=== PATIENT | male | born 1955 | race Caucasian/White ===

== ENCOUNTER → 2018-03-20 12:22 | Outpatient (CLI) | payer BC, SELFPAY ==
--- NOTE | 2018-03-20 12:26 | RAD_ITS ---
STUDY: X-RAY - RIGHT FOOT CLINICAL: Male, 62 years old. Right foot pain TECHNIQUE: 3 view(s) of the foot. # of Images: 3 COMPARISON: None. FINDINGS: No acute fracture or dislocation. Mild age-related degenerative changes. Near the head of the fifth metatarsal, there is an area of soft tissue swelling without evidence of foreign body. RAD/Foot min 3 Views IMPRESSION: No acute osseous findings. Small area of soft tissue swelling without foreign body Electronically Signed: Charly Haney DO at 10:51 EDT Tel , Service support ,
== END ==
PROVIDERS: Family Provider Family Medicine; PCP Family Medicine; Referring Provider Surgery; Visit Provider Surgery
DX: M79.671 Pain in right foot (principal); M60.271 Foreign body granuloma of soft tissue, not elsewhere classified, right ankle and foot
CPT/HCPCS: 73630

== ENCOUNTER → 2018-03-31 07:15 | Outpatient (CLI) | payer BC, SELFPAY ==
--- NOTE | 2018-03-31 07:17 | CT_ITS ---
STUDY: CT PELVIS WITH CONTRAST REASON FOR EXAM: Male, 62 years old. Nonhealing recurrent pilonidal cyst. RADIATION DOSAGE (If Supplied By Facility): CTDIvol = ( 28.21 ) mGy, DLP = ( 1264.86 ) mGycm TECHNIQUE: Transaxial imaging of the pelvis was performed with oral contrast. 100 ml of Isovue 300 contrast was administered intravenously. Individualized dose optimization techniques were used for this CT. COMPARISON: None. FINDINGS: Normal urinary bladder. Normal visualized small intestine. Normal visualized colon. There is no pelvic fluid. There is no pelvic lymphadenopathy or mass lesion. Normal visualized pelvic arteries. Small umbilical hernia containing fat. Small bilateral inguinal lymph nodes. These appear to be benign. There are mild degenerative changes of the visualized lumbar spine. Degenerative changes of the sacroiliac joints bilaterally. CT/Pelvis WITH IV Contrast IMPRESSION: No acute abnormality is seen. Electronically Signed: Lencho Ray MD at 9:50 EDT Tel [phone], Service support ,
[2018-03-31 07:30] LABS: CREATININE FINGERSTICK 1.2 mg/dL (0.70-1.30); EGFR FINGERSTICK > 60.0000 mL/min (>60)
== END ==
PROVIDERS: Family Provider Family Medicine; PCP Family Medicine; Referring Provider Surgery; Visit Provider Surgery
DX: L05.92 Pilonidal sinus without abscess (principal)
CPT/HCPCS: 72193; Q9967

== ENCOUNTER 2018-04-09 06:36 | Day surgery (SDC) | payer BC, SELFPAY ==
[2018-04-09] VITALS (8 sets, daily range): BP systolic 94–147; BP diastolic 52–71; PULSE 58–78; RESP 14–16; TEMP 36.2–37.2; O2SAT 92–98; BMI 33.5
--- NOTE | 2018-04-09 08:00 | PILCYST_PTH ---
PATIENT: TEVIN KAY LOC: [facility] U#:[id number] AGE/SX: 62/M ROOM: RE04/09/[address]: Dr. Casey Melendez MD : 1955 BED: DIS: 04/10/2018 SPEC #: [id number] RECD: 04/10/18 09:01 STATUS: JONNY AMY #: [id number] PAM: 04/09/18 08:[address]: Casey Melendez DEPT: SURGICAL PATHOLOGY RECD BY: Manuel Horner ENTERED: 04/10/18 09:30 SP TYPE: Pilonidal OTHR DR: Dr. Joe Yao MD Tissues: PILONIDAL TISSUE Procedures: Surgery Specimen Level III HEADER OPERATION: Excision recurrent painful extensive complicated pilonidal cyst PRE-OP DIAGNOSIS: Painful recurrent complicated extensive pilonidal cyst with draining sinus TISSUE SUBMITTED: Recurrent pilonidal cyst MICROSCOPIC DIAGNOSIS Pilonidal cyst, excision: Consistent with pilonidal cyst with associated acute on chronic inflammation, granulation, and reactive change. AM:linette 04/13/18 MICROSCOPIC DESCRIPTION Slides are reviewed. GROSS DESCRIPTION Received in fixative is one container labeled with the patient's name and designated recurrent pilonidal cyst. The specimen consists of piece of skin with underlying tissue measuring 10.5 x 3.5 cm and up to 5 cm in thickness. The skin surface is previously bisected. Sections reveal focal area of fibrosis and cyst formation. No mass lesion is identified. Fire Extinguisher Charger sections are submitted in two cassettes. /DON:linette 04/10/18 TC: 2 CPT: 61182
[2018-04-09 08:25] LABS: Bedside Glucose 114 mg/dL (70-110)
--- NOTE | 2018-04-09 09:04 | PCM.IMDPSTOP ---
Immediate Post-Op Note Date of Procedure: 04/09/18 Primary Surgeon/Physician: Casey Melendez professor of management: None Pre-Operative Diagnosis: 1. Painful recurrent complicated extensive pilonidal cyst with draining sinus. 2. Former smoker. Post-Operative Diagnosis: 1. Painful recurrent complicated extensive pilonidal cyst with draining sinus with extension to muscular anal sphincter. 2. Former smoker. Surgery/Procedure Performed:: Excision painful recurrent complicated extensive pilonidal cyst with draining sinus with extension to muscular anal sphincter. Description of Surgical Findings:: 62 year old man presents with a painful recurrent pilonidal cyst with a draining sinus. It drains intermittently. He denies any fever. He has had this pilonidal cyst excised several times in the past both in [place] and [place]. The last time was a few years ago. His last CT scan was also a few years ago as well which showed some extensions of the sinus toward the anal sphincter area. He has had it excised and closed over a drain and has had it excised and packed with dressing changes until healed. Each time, it has recurred. Today the patient underwent excision painful recurrent complicated extensive pilonidal cyst with draining sinus with extension to muscular anal sphincter. Size of wound sacral area - 13 x 7 x 6 cm. Wound is 3 cm from the anal opening. Estimated Blood Loss: 50 ml. Specimen's removed: Pilonidal cyst with draining sinus with extension to muscular anal sphincter to Pathology and Microbiology. Drains: None. Type of Anesthesia:: General - Admit VTE Documentation VTE Present on Admission: No VTE Mechan Device Prophylaxis: SCD's VTE Pharm Prophylaxis ordered?: No
--- NOTE | 2018-04-09 09:08 | OP.PN_ITS ---
Immediate Post-Op Note Date of Procedure: 04/09/18 Primary Surgeon/Physician: Casey Melendez remelt operator: None Pre-Operative Diagnosis: 1. Painful recurrent complicated extensive pilonidal cyst with draining sinus. 2. Former smoker. Post-Operative Diagnosis: 1. Painful recurrent complicated extensive pilonidal cyst with draining sinus with extension to muscular anal sphincter. 2. Former smoker. Surgery/Procedure Performed:: Excision painful recurrent complicated extensive pilonidal cyst with draining sinus with extension to muscular anal sphincter. Description of Surgical Findings:: 62 year old man presents with a painful recurrent pilonidal cyst with a draining sinus. It drains intermittently. He denies any fever. He has had this pilonidal cyst excised several times in the past both in [place] and [place]. The last time was a few years ago. His last CT scan was also a few years ago as well which showed some extensions of the sinus toward the anal sphincter area. He has had it excised and closed over a drain and has had it excised and packed with dressing changes until healed. Each time, it has recurred. Today the patient underwent excision painful recurrent complicated extensive pilonidal cyst with draining sinus with extension to muscular anal sphincter. Size of wound sacral area - 13 x 7 x 6 cm. Wound is 3 cm from the anal opening. Estimated Blood Loss: 50 ml. Specimen's removed: Pilonidal cyst with draining sinus with extension to muscular anal sphincter to Pathology and Microbiology. Drains: None. Type of Anesthesia:: General - Admit VTE Documentation VTE Present on Admission: No VTE Mechan Device Prophylaxis: SCD's VTE Pharm Prophylaxis ordered?: No
[2018-04-09 09:41] LABS: Bedside Glucose 106 mg/dL (70-110)
[2018-04-09] MEDS: HYDROmorphone 1 MG/ML Syringe IV (10:54)
[2018-04-09] MEDS: hydroCHLOROthiazide 25 MG Tablet PO (11:51)
[2018-04-09] MEDS: oxyCODONE 5 MG Tablet 10 MG PO ×3 (14:14→22:23)
--- NOTE | 2018-04-09 15:41 | OP.PCM_ITS ---
Report of Operation Date of Procedure: 04/09/18 Pre-Operative Diagnosis: 1. Painful recurrent complicated extensive pilonidal cyst with draining sinus. 2. Former smoker. Post-Operative Diagnosis: 1. Painful recurrent complicated extensive pilonidal cyst with draining sinus with extension to muscular anal sphincter. 2. Former smoker. Surgery/Procedure Performed:: Excision painful recurrent complicated extensive pilonidal cyst with draining sinus with extension to muscular anal sphincter. Description of Surgical Findings:: 62 year old man presents with a painful recurrent pilonidal cyst with a draining sinus. It drains intermittently. He denies any fever. He has had this pilonidal cyst excised several times in the past both in [place] and [place]. The last time was a few years ago. His last CT scan was also a few years ago as well which showed some extensions of the sinus toward the anal sphincter area. He has had it excised and closed over a drain and has had it excised and packed with dressing changes until healed. Each time, it has recurred. Patient was informed of the risks and complications of the procedure including alternatives to surgery. These were discussed with the patient personally. Patient voices understanding and wishes to proceed. Some of the risks and complications were included in a form from the [place] [employer] [employer]. Size of wound sacral area - 13 x 7 x 6 cm. Wound is 3 cm from the anal opening. literacy education professor: None Type of Anesthesia:: General Specimen's removed: Pilonidal cyst with draining sinus with extension to muscular anal sphincter to Pathology and Microbiology. Drains: None. Estimated Blood Loss (mL): 50 ml. Description of Procedure: Patient was taken to OR in supine position and was placed under general anesthesia. The sacral area was prepped and draped in the usual fashion. SCD's were placed for DVT prophylaxis. Perioperative antibiotics were given intravenously. Using xylocaine with epinephrine, the pilonidal cyst sinus was infiltrated. After waiting 5 minutes for the anesthetic to take effect, I proceeded with excision of this pilonidal cyst sinus down into the subcutaneous tissue down to the muscular fascia. No pus was seen. A lot of scar tissue is present that was excised. There was a sinus tract down toward the anal opening with scar tissue extending to the muscular anal sphincter. A small cuff of muscle was excised with the sinus tract. No involvement of the rectum was noted on rectal exam. My gloves were then changed. The extension of this sinus tract could explain the recurrent nature of this pilonidal disease. Hopefully this will take care of this problem. If recurrence continues, then evaluation by a colorectal surgeon would be necessary because further dissection and excision would probably involve the rectum and would need complex repair and temporary diverting colostomy during the healing of the rectal wall repair. The distance of the wound to the anal opening is 3 cm. Some of the tissue was sent to Microbiology for culture. A positive culture will necessitate antibiotic therapy. The rest of the tissue will be sent to Pathology for analysis to rule out carcinoma. The wound was irrigated with saline. Hemostasis was obtained with electrocautery. The dimensions of the wound after excision was 13 x 7 x 6 cm. Patient tolerated the procedure well and was sent to PACU in satisfactory condition. Patient will be sent upstairs for continued postop care. The VAC will be applied tomorrow. After discharge he will followup at the Wound Center. Grafts/Implants Used: None. - Complications None. - Admit VTE Documentation VTE Present on Admission: No VTE Mechan Device Prophylaxis: SCD's VTE Pharm Prophylaxis ordered?: No Code Visit Surgery Charges CPT - 17215 ICD-10 - L05.92, Z87.891
[2018-04-09] MEDS: Lactated Ringers 1,000 ML 60 ML IV (18:23)
[2018-04-09] MEDS: Docusate Sodium 100 MG Capsule PO (22:21)
[2018-04-10 02:03] VITALS: BP 137/53; PULSE 62; RESP 18; TEMP 37.7; O2SAT 94
[2018-04-10 02:16] LABS: Bedside Glucose 119 mg/dL (70-110)
[2018-04-10] MEDS: oxyCODONE 5 MG Tablet 10 MG PO ×4 (02:30→18:49)
[2018-04-10] MEDS: diazePAM 5 MG Tablet PO (06:36)
[2018-04-10 07:39] LABS: Hematocrit 38.7 % (40-54); Hemoglobin 13.1 g/dl (13.0-16.5); Mean Corp Hgb Conc 33.9 g/gl (32-36); Mean Corpuscular Hgb 31.6 pg (27.0-32.0); Mean Corpuscular Volume 93.5 fL (80-94); Mean Platelet Vol. 10.6 fl (6.2-12.0); Platelet Count 161 K/mm3 (150-450); RBC Distribution Width CV 13.2 % (11.6-14.6); RBC Distribution Width SD 43.8 fl (35.1-43.9); Red Blood Count 4.14 M/mm3 (4.6-6.2); White Blood Count 6.6 K/mm3 (4.4-11.0)
[2018-04-10 07:46] LABS: Scan Indicated on CBC? Y/N NO
[2018-04-10 07:50] LABS: Anion Gap 8 (5-15); BUN 16 mg/dL (7-18); BUN/Creat Ratio 14.7 RATIO (10-20); Calcium,Total 8.4 mg/dL (8.5-10.1); Chloride 103 mmol/L (98-107); Creatinine, Serum 1.09 mg/dL (0.70-1.30); EST Glomerular Filtration Rate 73 mL/min (>60); Est Glom Filt Rate - Afr Amer 88 mL/min (>60); Estimated Creatinine Clearance 86.27 ml/min; Glucose 138 mg/dL (74-106); Potassium 4.2 mmol/L (3.5-5.1); Prealbumin 22.9 mg/dL (20.0-40.0); Sodium Level 139 mmol/L (136-145)
[2018-04-10] MEDS: metFORMIN HCl 1,000 MG Tablet 1000 MG PO (08:46)
[2018-04-10] MEDS: Docusate Sodium 100 MG Capsule PO (08:46)
[2018-04-10] MEDS: Multivitamins,Therapeutic Tablet 1 TABLET PO (08:46)
[2018-04-10] MEDS: Losartan Potassium 50 MG Tablet PO (08:52)
[2018-04-10] MEDS: hydroCHLOROthiazide 25 MG Tablet PO (08:53)
[2018-04-10 08:57] VITALS: BP 131/59; PULSE 75; RESP 18; TEMP 37.7; O2SAT 94
[2018-04-10] MEDS: HYDROmorphone 1 MG/ML Syringe IV (09:58)
--- NOTE | 2018-04-10 10:47 | NURSING ---
wound photo: sacrum
--- NOTE | 2018-04-10 11:54 | NURSING ---
this rn taking over care of pt at this time
[2018-04-10 12:41] VITALS: BP 138/60; PULSE 69; RESP 18; TEMP 36.9; O2SAT 93
[2018-04-10] MEDS: 0.9% NaCl Peripheral Flush Adult/Peds IV (15:24)
--- NOTE | 2018-04-10 18:14 | PCM.PN.SRG ---
Subjective: Postop #1 Patient is resting comfortably. VAC applied and tolerated reasonably well. He is tolerating po analgesia. - Physical Exam General: Alert, Oriented x3 HEENT: PERRLA, EOMI Oral: Moist Mucosa Neck: Supple Abdomen: Soft, Non-Distended Skin: Ulcer/ Wound - sacral wound stable. No bleeding noted. VAC applied today. Neurological: Cranial nerves II-XII grossly intact Psych/Mental Status: Normal Affect, Appropriate Vital Signs Temp Pulse Resp BP Pulse Ox 98.5 F 69 18 138/60 H 93 04/10/18 12:41 04/10/18 12:41 04/10/18 12:41 04/10/18 12:41 04/10/18 12:41 Oxygen Delivery Method Room Air Weight: 275 lb 5.718 oz Body Mass Index (BMI) 33.5 Finger Stick Blood Glucose 106 Intake and Output for Last 24 Hours 04/08/18 04/09/18 04/10/18 23:59 23:59 23:59 Intake Total 2214 / 2214 2353 / 2353 Balance 2214 / 2214 2353 / 2353 Microbiology Past 72 Hours 04/09/18 09:20 Gram Stain - Final Cyst - Buttock Wound Culture - Preliminary Gram positive organism Laboratory Tests Past 24 Hrs 04/10/18 04/10/18 06:57 06:57 WBC 6.6 RBC 4.14 L Hgb 13.1 Hct 38.7 L MCV 93.5 MCH 31.6 MCHC 33.9 RDW 13.2 RDW Differential 43.8 Plt Count 161 MPV 10.6 Sodium 139 Potassium 4.2 Chloride 103 Carbon Dioxide 28.0 Anion Gap 8 BUN 16 Creatinine 1.09 Estim Creat Clear Calc 86.27 Est GFR (MDRD) Af Amer 88 Est GFR (MDRD) Non-Af 73 BUN/Creatinine Ratio 14.7 Glucose 138 H Calcium 8.4 L Prealbumin 22.9 POC Glucose 04/10/18 02:09 POC Glucose 119 H Medical Necessity - Tobacco Use Smoking Status: Former smoker Tobacco Use: Cigarettes Assessment/Plan 1. Painful recurrent complicated extensive pilonidal cyst with draining sinus with extension to muscular anal sphincter. 2. Former smoker. 3. s/p excision painful recurrent complicated extensive pilonidal cyst with draining sinus with extension to muscular anal sphincter. 4. Open surgical wound sacral area. Wound is stable. No bleeding noted. VAC applied today. VAC has been approved. He is tolerating po analgesia. Discharge home today. Prealbumin was 22.9. Encourage nutritional supplementation with protein to help the healing process. Wrote script for Doxycycline for the Gram positive organism. Identification and sensitivity pending. Antibiotic modification may be necessary. Wrote scripts for Dilaudid for pain (60 tabs) and for Valium for spasm (30 tabs). Wrote scripts for Colace for constipation (60 tabs) and for Acidophilus (30 tabs) and 2 refills. Followup at the Wound Center in 2 weeks.
--- NOTE | 2018-04-10 18:24 | DCINST_ITS ---
You will use the following diet at home:: No restrictions, Other - encourage nutritional supplementation with protein to help the healing process. Discharge Activity: May not drive while taking narcotic pain medications., May Shower - on the days the vac is changed. Return to work on:: 05/16/18 - tentative. May shower in (days): 3 - may shower on the days the vac is changed. Weight Bearing Status: Weight bearing as tolerated Call your doctor if your incision/area has: Continuous Slow Oozing, Sudden Increased Bleeding, Increased Pain/ Swelling, Increased Redness, Foul Smelling Discharge, Swelling at the incision site Call your doctor if you observe: Fever of 101 or Higher, Coldness, Increased Pain, Shortness of breath, Chest pain, Calf discomfort, Uncontrolled pain Suture Line Care: - - vac changes three times per week. Change Dressing in (Days):: 3 - vac changes three times per week. Cleanse incision/area with: Soap & Water - may cleanse the wound with soap and water at the time of the dressing change., - - may get the wound wet in the shower on the days the vac is changed. Allergies/Adverse Reactions: Allergies amoxicillin [From Augmentin] Allergy (Severe, Verified 04/08/18 14:19) Hives clavulanic acid [From Augmentin] Allergy (Severe, Verified 04/08/18 14:19) Hives BEE STINGS Allergy (Mild, Uncoded 04/08/18 14:19) ALLERGY Medications to take at Discharge Hydrochlorothiazide 25 mg PO DAILY 02/26/14 aspirin 81 mg tablet,delayed release 81 mg PO DAILY 02/17/18 calcium carbonate 500 mg calcium (1,250 mg) tablet 500 mg PO DAILY tab 02/17/18 fish, borage, flaxseed oils-omega 3,6,9 cb #1 400 mg-400 mg-400 mg cap 1 cap PO DAILY cap 02/17/18 losartan 50 mg tablet 50 mg PO DAILY 02/17/18 multivitamin tablet 1 tab PO DAILY 02/17/18 Gluc Osman/Chondro Osman A/Vit C/Mn [Glucosamine-Chondroitin Cap] 1 each PO DAILY 04/08/18 Metformin HCl 1,000 mg PO DAILY 04/08/18 Diazepam [Valium] 5 mg PO 4X/DAY PRN PRN #30 tab 04/10/18 Docusate Sodium [Colace] 100 mg PO BID #60 cap 04/10/18 Doxycycline [Vibramycin] 100 mg PO BID #28 cap 04/10/18 HYDROmorphone tablet [Dilaudid] 2 - 4 mg PO 4X/DAY PRN PRN 7 Days #60 tab 04/10/18 Lactobacillus Acidophilus/Fos [Acidophilus Probiotic Tablet] 1 ea PO BID #30 tab 04/10/18 The following prescriptions were given: Diazepam [Valium] 5 mg PO 4X/DAY PRN PRN #30 tab PRN Reason: Spasms HYDROmorphone tablet [Dilaudid] 2 - 4 mg PO 4X/DAY PRN PRN 7 Days #60 tab PRN Reason: Pain Docusate Sodium [Colace] 100 mg PO BID #60 cap Doxycycline [Vibramycin] 100 mg PO BID #28 cap Lactobacillus Acidophilus/Fos [Acidophilus Probiotic Tablet] 1 ea PO BID #30 tab Primary Care Physician: Joe Yao MD [Primary Care Provider] - Test Results: Test results from this visit will be discussed in further detail at your follow- up appointment, if applicable. Please Follow Up With: Casey Melendez MD When: 2 weeks at the wound center. call [phone] for appt. Proposed Discharge Date: 04/10/18
[2018-04-10 18:35] VITALS: BP 143/62; PULSE 81; RESP 18; TEMP 37.5; O2SAT 99
== END 2018-04-10 19:05 | disposition home health service (06) ==
LOC: SDC 06:37 → AC 06:38 → MS3 04-13 07:41
PROVIDERS: Family Provider Family Medicine; PCP Family Medicine; Referring Provider Surgery; Visit Provider Surgery
PROC: (CPT 11772; principal; 2018-04-09 07:45)
DX: L05.91 Pilonidal cyst without abscess (principal); M60.271 Foreign body granuloma of soft tissue, not elsewhere classified, right ankle and foot; F41.9 Anxiety disorder, unspecified; F32.9 Major depressive disorder, single episode, unspecified; M19.90 Unspecified osteoarthritis, unspecified site; I10 Essential (primary) hypertension; R73.03 Prediabetes; G47.30 Sleep apnea, unspecified; Z85.828 Personal history of other malignant neoplasm of skin; Z87.891 Personal history of nicotine dependence; Z79.84 Long term (current) use of oral hypoglycemic drugs; Z79.82 Long term (current) use of aspirin; Z79.891 Long term (current) use of opiate analgesic; Z79.899 Other long term (current) drug therapy
CPT/HCPCS: 11772; 36415; 80048; 82962; 84134; 85027; 87070; 87075; 87076; 87077; 87102; 87186; 87205; 87206; 88304; J7120; A4216; J2405

== ENCOUNTER 2018-04-27 10:20 | Outpatient (RCR) | payer BC, SELFPAY ==
[2018-04-27 10:49] VITALS: BP 150/67; PULSE 70; RESP 18; TEMP 36.9; BMI 35.0
--- NOTE | 2018-04-27 21:48 | PCM.WC.PN ---
Type of Wound Date of Service: 04/27/18 Chief Complaint: Open surgical wound sacral area after excision recurrent complicated pilonidial cyst with draining sinus. History of Wound: Surgery 04/09/18 - Excision painful recurrent complicated extensive pilonidal cyst with draining sinus with extension to muscular anal sphincter. Wound care - VAC. Operative culture - Streptococcus mitis/oralis, Bacteroides vulgatus, Fusobacterium nucleatum, Eggerthella lenta, and Propionibacterium propionicum. He was treated initially with Doxycycline. Will change to Cleocin. Prealbumin from 04/10/18 was 22.9. Encourage nutritional supplementation with protein to help the healing process. Progress of Wound: Improved. - Physical Exam Vital Signs Temp Pulse Resp BP 98.4 F 70 18 150/67 H 04/27/18 10:49 04/27/18 10:49 04/27/18 10:49 04/27/18 10:49 Wound Measurements and Assessment WC - Nurse 1 - General Ulcer Measurement Start: 04/27/18 10:46 Freq: Status: Active Protocol: Activity Type Activity Date Activity User E-Sign Co-Sign Detail Recorded Client Recorded Date Recorded By Document 04/27/18 10:49 DL [id number] 04/27/18 11:12 DL 04/27/18 10:49 Wound Center Nurse 1 [Ulcer Assessment] #1 Sacral -Current Size (cm) - Length 11 -Current Size (cm) - Width 3.2 -Current Size (cm) - Depth 4 -Total Square Cm 35.2 -Photo Taken Yes -Tunneling Yes -Tunneling Position (O'clock) 6 -Tunneling Distance (cm) 8 -Classification - Thickness Full Thickness without Exposed Support Structure -Exudate Amt Large (67-100%) -Exudate Type Serosanguineous -Wound Margin Distinct, Outline Attached -Granulation Amt Large (67-100%) -Granulation Quality Red -Necrotic Tissue Type Adherent Slough -Structure Exposed N/A -Texture (Rayna-wound Skin Appearance) Scarring -Moisture (Rayna-wound Skin Appearance No Abnormality ) -Color (Rayna-wound Skin Appearance) No Abnormality -Temperature (Rayna-wound Skin No Abnormality Appearance) (Pt Warm) -Ulcer Cleansing Rinsed/ Irrigated with Saline -Foul Odor after Cleansing No -Anesthetic Used 4% Lidocaine Solution WC - Nurse 2 - General Ulcer CM Notes Start: 04/27/18 10:46 Freq: Status: Active Protocol: Activity Type Activity Date Activity User E-Sign Co-Sign Detail Recorded Client Recorded Date Recorded By Document 04/27/18 11:37 [id number] 04/27/18 11:40 04/27/18 11:37 Wound Center Nurse 2 [Procedure/Treatment] -Time 11:37 -Correct Patient Yes -Correct Side, Site, Position Yes -Correct Procedure Yes -Procedure Performed Yes -Type of Procedure Debridement -Clinical Debridement Muscle -Post Debridement Size (cm) - Length 11 -Post Debridement Size (cm) - Width 3.3 -Post Debridement Size (cm) - Depth 4 -Total Square Cm 36.3 -Wound/Ulcer Outcome Not Healed -Ulcer Cleansing Rinsed/ Irrigated with Saline -Foul Odor after Cleansing No -Bioengineered Tissue No -Bleeding Controlled with Pressure -Treatment Response Procedure Tolerated Well [See Physician Procedure note for Specifics] Pain Scale: 0-10 Numeric [Pain] -Is Patient Pain Free? Yes Debridement Note Post-Debridement Measurements/Treatment WC - Nurse 2 - General Ulcer CM Notes Start: 04/27/18 10:46 Freq: Status: Active Protocol: Activity Type Activity Date Activity User E-Sign Co-Sign Detail Recorded Client Recorded Date Recorded By Document 04/27/18 11:37 [id number] 04/27/18 11:40 04/27/18 11:37 Wound Center Nurse 2 #1 Sacral -Time 11:37 -Correct Patient Yes -Correct Side, Site, Position Yes -Correct Procedure Yes -Procedure Performed Yes -Type of Procedure Debridement -Clinical Debridement Muscle -Post Debridement Size (cm) - Length 11 -Post Debridement Size (cm) - Width 3.3 -Post Debridement Size (cm) - Depth 4 -Total Square Cm 36.3 -Wound/Ulcer Outcome Not Healed -Ulcer Cleansing Rinsed/ Irrigated with Saline -Foul Odor after Cleansing No -Bioengineered Tissue No -Bleeding Controlled with Pressure -Treatment Response Procedure Tolerated Well Pain Scale: 0-10 Numeric Is Patient Pain Free? Yes Wound debrided: #1 Sacral area. Laterality: Not Applicable Wound Grade/Stage: 3. Type of Debridement: Excisional debridement Anesthesia Used: 4% Lidocaine Solution Depth: Down to and including healthy tissue, in the subcutaneous layer, to muscle Percentage of wound debrided: 100 Instrument Used: 7mm curette Tissue Removed: subcutaneous tissue and muscle. Severity: Fat Layer Exposed - muscle is exposed. Amount of bleeding with debridement: Mild Bleeding Controlled with: Pressure Patient tolerated procedure well Assessment/Plan Assessment: 1. Painful recurrent complicated extensive pilonidal cyst with draining sinus with extension to muscular anal sphincter. 2. Former smoker. 3. s/p excision painful recurrent complicated extensive pilonidal cyst with draining sinus with extension to muscular anal sphincter. 4. Open surgical wound sacral area. Plan: Continue the VAC to be changed three times per week at 150 mmHg continuous suction. Will stop the Doxycycline and start Cleocin for operative culture that showed Streptococcus mitis/oralis, Bacteroides vulgatus, Fusibacterium nucleatum, Eggerthella lenta, and Propionibacterium propionicum. Followup 2 weeks.
== END 2018-05-01 23:59 ==
LOC: WC 10:20
PROVIDERS: Family Provider Family Medicine; PCP Family Medicine; Visit Provider Surgery
DX: L05.91 Pilonidal cyst without abscess (principal); Z87.891 Personal history of nicotine dependence; L98.425 Non-pressure chronic ulcer of back with muscle involvement without evidence of necrosis; B95.4 Other streptococcus as the cause of diseases classified elsewhere; G89.18 Other acute postprocedural pain
CPT/HCPCS: 11043; 11046; 97605; 99213; G0463

== ENCOUNTER 2018-06-01 08:15 | Outpatient (RCR) | payer BC, SELFPAY ==
[2018-05-02 02:05] VITALS: BP 150/67; PULSE 70; RESP 18; TEMP 36.9
[2018-05-11 08:23] VITALS: BP 126/82; PULSE 70; RESP 16; TEMP 36.9; BMI 35.0
--- NOTE | 2018-05-11 23:29 | PCM.WC.PN ---
Type of Wound Date of Service: 05/11/18 Chief Complaint: Open surgical wound sacral area after excision recurrent complicated pilonidial cyst with draining sinus. History of Wound: Surgery 04/09/18 - Excision painful recurrent complicated extensive pilonidal cyst with draining sinus with extension to muscular anal sphincter. Wound care - VAC. Operative culture - Streptococcus mitis/oralis, Bacteroides vulgatus, Fusobacterium nucleatum, Eggerthella lenta, and Propionibacterium propionicum. He was treated initially with Doxycycline. He was switched to Cleocin. Prealbumin from 04/10/18 was 22.9. Encourage nutritional supplementation with protein to help the healing process. Progress of Wound: Improved. - Physical Exam Vital Signs Temp Pulse Resp BP 98.4 F 70 16 126/82 H 05/11/18 08:23 05/11/18 08:23 05/11/18 08:23 05/11/18 08:23 Wound Measurements and Assessment WC - Nurse 1 - General Ulcer Measurement Start: 05/11/18 08:22 Freq: Status: Active Protocol: Activity Type Activity Date Activity User E-Sign Co-Sign Detail Recorded Client Recorded Date Recorded By Document 05/11/18 08:23 [id number] 05/11/18 08:28 05/11/18 08:23 Wound Center Nurse 1 [Ulcer Assessment] #1 Sacral -Combined with other wound No -Current Size (cm) - Length 9.7 -Current Size (cm) - Width 2.4 -Current Size (cm) - Depth 6.4 -Total Square Cm 23.28 -Photo Taken No -Epithelialization None Present -Tunneling No -Undermining/Tunneling No -Circular Undermining No -Classification - Thickness Full Thickness with Exposed Support Structure -Exudate Amt Large (67-100%) -Exudate Type Serosanguineous -Wound Margin Indistinct, Non -Visible -Granulation Amt Small (1-33%) -Granulation Quality Red -Slough/Fibrin Yes -Necrosis Amt Medium (34-66%) -Necrotic Tissue Type Adherent Slough -Structure Exposed Fascia Muscle Bone Fat Layer Exposed -Texture (Rayna-wound Skin Appearance) No Abnormality Assessed -Moisture (Rayna-wound Skin Appearance No Abnormality ) Assessed -Color (Rayna-wound Skin Appearance) Assessed Erythema -Temperature (Rayna-wound Skin No Abnormality Appearance) (Pt Warm) -Ulcer Cleansing Rinsed/ Irrigated with Saline -Foul Odor after Cleansing No -Anesthetic Used 4% Lidocaine Solution - Nurse 2 - General Ulcer CM Notes Start: 05/11/18 08:22 Freq: Status: Active Protocol: Activity Type Activity Date Activity User E-Sign Co-Sign Detail Recorded Client Recorded Date Recorded By Document 05/11/18 08:50 [id number] 05/11/18 08:52 HERBERT 05/11/18 08:50 Wound Center Nurse 2 [Procedure/Treatment] -Time 08:51 -Correct Patient Yes -Correct Side, Site, Position Yes -Correct Procedure Yes -Procedure Performed Yes -Type of Procedure Debridement -Clinical Debridement Muscle -Post Debridement Size (cm) - Length 9.7 -Post Debridement Size (cm) - Width 2.5 -Post Debridement Size (cm) - Depth 5.0 -Total Square Cm 24.25 -Wound/Ulcer Outcome Not Healed -Ulcer Cleansing Rinsed/ Irrigated with Saline -Foul Odor after Cleansing No -Bioengineered Tissue No -Bleeding Controlled with Pressure -Offloading No -Treatment Response Procedure Tolerated Well [See Physician Procedure note for Specifics] Pain Scale: 0-10 Numeric [Pain] -Is Patient Pain Free? Yes Debridement Note Post-Debridement Measurements/Treatment - Nurse 2 - General Ulcer CM Notes Start: 05/11/18 08:22 Freq: Status: Active Protocol: Activity Type Activity Date Activity User E-Sign Co-Sign Detail Recorded Client Recorded Date Recorded By Document 05/11/18 08:50 [id number] 05/11/18 08:52 05/11/18 08:50 Wound Center Nurse 2 #1 Sacral -Time 08:51 -Correct Patient Yes -Correct Side, Site, Position Yes -Correct Procedure Yes -Procedure Performed Yes -Type of Procedure Debridement -Clinical Debridement Muscle -Post Debridement Size (cm) - Length 9.7 -Post Debridement Size (cm) - Width 2.5 -Post Debridement Size (cm) - Depth 5.0 -Total Square Cm 24.25 -Wound/Ulcer Outcome Not Healed -Ulcer Cleansing Rinsed/ Irrigated with Saline -Foul Odor after Cleansing No -Bioengineered Tissue No -Bleeding Controlled with Pressure -Offloading No -Treatment Response Procedure Tolerated Well Pain Scale: 0-10 Numeric Is Patient Pain Free? Yes Wound debrided: #1 Sacral area. Laterality: Not Applicable Wound Grade/Stage: 3. Type of Debridement: Excisional debridement Anesthesia Used: 4% Lidocaine Solution Depth: Down to and including healthy tissue, in the subcutaneous layer, to muscle Percentage of wound debrided: 100 Instrument Used: 7mm curette Tissue Removed: subcutaneous tissue and muscle. Severity: Fat Layer Exposed - muscle is exposed. Amount of bleeding with debridement: Mild Bleeding Controlled with: Pressure Patient tolerated procedure well Assessment/Plan Assessment: 1. Painful recurrent complicated extensive pilonidal cyst with draining sinus with extension to muscular anal sphincter. 2. Former smoker. 3. s/p excision painful recurrent complicated extensive pilonidal cyst with draining sinus with extension to muscular anal sphincter. 4. Open surgical wound sacral area. Plan: Continue the VAC to be changed three times per week at 150 mmHg continuous suction. Continue Cleocin for operative culture that showed Streptococcus mitis/oralis, Bacteroides vulgatus, Fusibacterium nucleatum, Eggerthella lenta, and Propionibacterium propionicum. Renewed his Dilaudid for pain (40 tabs). Renewed his Valium for spasm (30 tabs). Followup 3 weeks.
[2018-06-01 08:17] VITALS: BP 151/80; PULSE 73; RESP 16; TEMP 36.7; BMI 35.0
--- NOTE | 2018-06-03 14:15 | PCM.WC.PN ---
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 History of Wound: Surgery 04/09/18 - Excision painful recurrent complicated extensive pilonidal cyst with draining sinus with extension to muscular anal sphincter. Wound care - VAC. Operative culture - Streptococcus mitis/oralis, Bacteroides vulgatus, Fusobacterium nucleatum, Eggerthella lenta, and Propionibacterium propionicum. He was treated initially with Doxycycline. He was switched to Cleocin. Prealbumin from 04/10/18 was 22.9. Encourage nutritional supplementation with protein to help the healing process. Progress of Wound: Improved. - Physical Exam Vital Signs Temp Pulse Resp BP 98.0 F 73 16 151/80 H 06/01/18 08:17 06/01/18 08:17 06/01/18 08:17 06/01/18 08:17 General: Alert, Oriented x3, Cooperative HEENT: Atraumatic Lungs: Normal air movement Extremities: No edema, Capillary Refill Less than 3 Seconds Skin: Ulcer/ Wound - Opened wound on sacrum Wound Measurements and Assessment WC - Nurse 1 - General Ulcer Measurement Start: 05/11/18 08:22 Freq: Status: Active Protocol: Activity Type Activity Date Activity User E-Sign Co-Sign Detail Recorded Client Recorded Date Recorded By Document 06/01/18 08:17 [id number] 06/01/18 08:28 06/01/18 08:17 Wound Center Nurse 1 [Ulcer Assessment] #1 Sacral -Combined with other wound No -Current Size (cm) - Length 8.2 -Current Size (cm) - Width 1.8 -Current Size (cm) - Depth 2.4 -Total Square Cm 14.76 -Photo Taken No -Epithelialization Small 1-33% -Tunneling Yes -Tunneling Position (O'clock) 6 -Tunneling Distance (cm) 0.8 -Undermining/Tunneling No -Circular Undermining No -Exudate Amt Medium (34-66%) -Exudate Type Serosanguineous -Wound Margin Distinct, Outline Attached -Granulation Amt Large (67-100%) -Granulation Quality Red -Slough/Fibrin Yes -Necrosis Amt Small (1-33%) -Necrotic Tissue Type Adherent Slough -Structure Exposed Bone -Texture (Rayna-wound Skin Appearance) Scarring -Moisture (Rayna-wound Skin Appearance No Abnormality ) Assessed -Color (Rayna-wound Skin Appearance) No Abnormality Assessed -Temperature (Rayna-wound Skin No Abnormality Appearance) (Pt Warm) -Tenderness on Palpation (Rayna-wound Yes Skin Appearance) -Ulcer Cleansing soap -Foul Odor after Cleansing No -Anesthetic Used 4% Lidocaine Solution [Edema Assessment] -Lower Limb Edema Present NA - Nurse 2 - General Ulcer CM Notes Start: 05/11/18 08:22 Freq: Status: Active Protocol: Activity Type Activity Date Activity User E-Sign Co-Sign Detail Recorded Client Recorded Date Recorded By Document 06/01/18 08:53 [id number] 06/01/18 08:54 06/01/18 08:53 Wound Center Nurse 2 [Procedure/Treatment] #1 Sacral -Time 08:53 -Correct Patient Yes -Correct Side, Site, Position Yes -Correct Procedure Yes -Procedure Performed Yes -Type of Procedure Debridement -Clinical Debridement Subcutaneous -Post Debridement Size (cm) - Length 8.8 -Post Debridement Size (cm) - Width 3.2 -Post Debridement Size (cm) - Depth 2.6 -Total Square Cm 28.16 -Wound/Ulcer Outcome Not Healed -Ulcer Cleansing Rinsed/ Irrigated with Saline -Foul Odor after Cleansing No -Bioengineered Tissue No -Bleeding Controlled with Pressure -Other tunnel at 6---2 .0cm -Offloading No -Treatment Response Procedure Tolerated Well [See Physician Procedure note for Specifics] Pain Scale: 0-10 Numeric [Pain] -Is Patient Pain Free? Yes Musculoskeletal: No Tenderness to Palpation of Joints or Extremities Neurological: Neuro grossly intact Psych/Mental Status: Normal Affect, Appropriate Debridement Note Post-Debridement Measurements/Treatment WC - Nurse 2 - General Ulcer CM Notes Start: 05/11/18 08:22 Freq: Status: Active Protocol: Activity Type Activity Date Activity User E-Sign Co-Sign Detail Recorded Client Recorded Date Recorded By Document 05/11/18 08:50 [id number] 05/11/18 08:52 Document 06/01/18 08:53 [id number] 06/01/18 08:54 05/11/18 06/01/18 08:50 08:53 Wound Center Nurse 2 #1 Sacral -Time 08:51 08:53 -Correct Patient Yes Yes -Correct Side, Site, Position Yes Yes -Correct Procedure Yes Yes -Procedure Performed Yes Yes -Type of Procedure Debridement Debridement -Clinical Debridement Muscle Subcutaneous -Post Debridement Size (cm) - Length 9.7 8.8 -Post Debridement Size (cm) - Width 2.5 3.2 -Post Debridement Size (cm) - Depth 5.0 2.6 -Total Square Cm 24.25 28.16 -Wound/Ulcer Outcome Not Healed Not Healed -Ulcer Cleansing Rinsed/ Rinsed/ Irrigated with Irrigated with Saline Saline -Foul Odor after Cleansing No No -Bioengineered Tissue No No -Bleeding Controlled with Pressure Pressure -Other tunnel at 6---2 .0cm -Offloading No No -Treatment Response Procedure Procedure Tolerated Well Tolerated Well Pain Scale: 0-10 Numeric Is Patient Pain Free? Yes Yes Wound debrided: Pilonidal wound Type of Debridement: Excisional debridement Anesthesia Used: 4% Lidocaine Solution Depth: Down to and including healthy tissue, in the subcutaneous layer Instrument Used: 7mm curette Tissue Removed: Subcutaneous tissue and slough Severity: Fat Layer Exposed Amount of bleeding with debridement: Mild Bleeding Controlled with: Pressure, Compression and gauze Patient tolerated procedure well Assessment/Plan Assessment: 1. Painful recurrent complicated extensive pilonidal cyst with draining sinus with extension to muscular anal sphincter. 2. Former smoker. 3. s/p excision painful recurrent complicated extensive pilonidal cyst with draining sinus with extension to muscular anal sphincter. 4. Open surgical wound sacral area. Plan: Continue the VAC to be changed three times per week at 150 mmHg continuous suction. Will finish Cleocin this week for operative culture that showed Streptococcus mitis/oralis, Bacteroides vulgatus, Fusibacterium nucleatum, Eggerthella lenta, and Propionibacterium propionicum. Will have Dr. Melendez renew his Dilaudid for pain and Valium for spasm. Followup [address] Melendez. Code Visit [id number]
== END 2018-06-01 23:59 ==
LOC: WC 08:15
PROVIDERS: Family Provider Family Medicine; PCP Family Medicine; Visit Provider Surgery
DX: L05.91 Pilonidal cyst without abscess (principal); L98.425 Non-pressure chronic ulcer of back with muscle involvement without evidence of necrosis; Z87.891 Personal history of nicotine dependence; G89.18 Other acute postprocedural pain
CPT/HCPCS: 11042; 11043; 11046; 97605

== ENCOUNTER 2018-06-22 08:00 | Outpatient (RCR) | payer BC, SELFPAY ==
[2018-06-02 01:21] VITALS: BP 151/80; PULSE 73; RESP 16; TEMP 36.7
[2018-06-08 08:17] VITALS: BP 145/78; PULSE 67; RESP 16; TEMP 36.8; BMI 35.0
--- NOTE | 2018-06-08 17:15 | PCM.WC.PN ---
Type of Wound Date of Service: 06/08/18 Chief Complaint: Nonhealing ulcer sacral area. History of Wound: Surgery 04/09/18 - Excision painful recurrent complicated extensive pilonidal cyst with draining sinus with extension to muscular anal sphincter. Wound care - VAC. Operative culture - Streptococcus mitis/oralis, Bacteroides vulgatus, Fusobacterium nucleatum, Eggerthella lenta, and Propionibacterium propionicum. He was treated initially with Doxycycline. He was switched to Cleocin and has finished them. Prealbumin from 04/10/18 was 22.9. Encourage nutritional supplementation with protein to help the healing process. Progress of Wound: Improved. - Physical Exam Vital Signs Temp Pulse Resp BP 98.2 F 67 16 145/78 H 06/08/18 08:17 06/08/18 08:17 06/08/18 08:17 06/08/18 08:17 Wound Measurements and Assessment WC - Nurse 1 - General Ulcer Measurement Start: 06/08/18 08:15 Freq: Status: Active Protocol: Activity Type Activity Date Activity User E-Sign Co-Sign Detail Recorded Client Recorded Date Recorded By Document 06/08/18 08:17 [id number] 06/08/18 08:25 06/08/18 08:17 Wound Center Nurse 1 [Ulcer Assessment] #1 Sacral -Combined with other wound No -Current Size (cm) - Length 8 -Current Size (cm) - Width 1.8 -Current Size (cm) - Depth 0.8 -Total Square Cm 14.4 -Photo Taken No -Epithelialization None Present -Tunneling No -Undermining/Tunneling No -Circular Undermining No -Exudate Amt Medium (34-66%) -Exudate Type Serosanguineous -Wound Margin Distinct, Outline Attached -Granulation Amt Large (67-100%) -Granulation Quality Red -Slough/Fibrin Yes -Necrosis Amt Small (1-33%) -Necrotic Tissue Type Adherent Slough -Texture (Rayna-wound Skin Appearance) Scarring -Moisture (Rayna-wound Skin Appearance Assessed ) Maceration -Color (Rayna-wound Skin Appearance) No Abnormality Assessed -Temperature (Rayna-wound Skin No Abnormality Appearance) (Pt Warm) -Tenderness on Palpation (Rayna-wound No Skin Appearance) -Ulcer Cleansing Rinsed/ Irrigated with Saline -Foul Odor after Cleansing No -Anesthetic Used 4% Lidocaine Solution [Edema Assessment] -Lower Limb Edema Present NA - Nurse 2 - General Ulcer CM Notes Start: 06/08/18 08:15 Freq: Status: Active Protocol: Activity Type Activity Date Activity User E-Sign Co-Sign Detail Recorded Client Recorded Date Recorded By Document 06/08/18 08:38 HERBERT [id number] 06/08/18 08:42 HERBERT 06/08/18 08:38 Wound Center Nurse 2 [Procedure/Treatment] #1 Sacral -Time 08:39 -Correct Patient Yes -Correct Side, Site, Position Yes -Correct Procedure Yes -Procedure Performed Yes -Type of Procedure Debridement -Clinical Debridement Subcutaneous -Post Debridement Size (cm) - Length 8.1 -Post Debridement Size (cm) - Width 1.8 -Post Debridement Size (cm) - Depth 0.8 -Total Square Cm 14.58 -Wound/Ulcer Outcome Not Healed -Foul Odor after Cleansing No -Bioengineered Tissue No -Bleeding Controlled with Pressure -Other 6:00--1.6cm -Offloading No -Treatment Response Procedure Tolerated Well [See Physician Procedure note for Specifics] Pain Scale: 0-10 Numeric [Pain] -Is Patient Pain Free? Yes Debridement Note Post-Debridement Measurements/Treatment - Nurse 2 - General Ulcer CM Notes Start: 06/08/18 08:15 Freq: Status: Active Protocol: Activity Type Activity Date Activity User E-Sign Co-Sign Detail Recorded Client Recorded Date Recorded By Document 06/08/18 08:38 HERBERT [id number] 06/08/18 08:42 HERBERT 06/08/18 08:38 Wound Center Nurse 2 #1 Sacral -Time 08:39 -Correct Patient Yes -Correct Side, Site, Position Yes -Correct Procedure Yes -Procedure Performed Yes -Type of Procedure Debridement -Clinical Debridement Subcutaneous -Post Debridement Size (cm) - Length 8.1 -Post Debridement Size (cm) - Width 1.8 -Post Debridement Size (cm) - Depth 0.8 -Total Square Cm 14.58 -Wound/Ulcer Outcome Not Healed -Foul Odor after Cleansing No -Bioengineered Tissue No -Bleeding Controlled with Pressure -Other 6:00--1.6cm -Offloading No -Treatment Response Procedure Tolerated Well Pain Scale: 0-10 Numeric Is Patient Pain Free? Yes Wound debrided: #1 Sacral area. Laterality: Not Applicable Wound Grade/Stage: 3. Type of Debridement: Excisional debridement Anesthesia Used: 4% Lidocaine Solution Depth: Down to and including healthy tissue, in the subcutaneous layer Percentage of wound debrided: 100 Instrument Used: 3mm curette Tissue Removed: subcutaneous tissue. Severity: Fat Layer Exposed Amount of bleeding with debridement: Mild Bleeding Controlled with: Pressure Patient tolerated procedure well Assessment/Plan Assessment: 1. Nonhealing ulcer sacral area. 2. Painful recurrent complicated extensive pilonidal cyst with draining sinus with extension to muscular anal sphincter. 3. Former smoker. 4. s/p excision painful recurrent complicated extensive pilonidal cyst with draining sinus with extension to muscular anal sphincter. Plan: Continue the VAC to be changed three times per week at 150 mmHg continuous suction. There is improvement as the ulcer is getting smaller. The most inferior aspect of the ulcer has a little more depth. Discussed with the family the importance of making sure this little depth area inferiorly is packed completely with the VAC. Otherwise there is the risk that healing may occur over this small pocket and increase chance of recurrent drainage issues that may necessitate additional surgery. They voice understanding. He has finished the Cleocin for operative culture that showed Streptococcus mitis/oralis, Bacteroides vulgatus, Fusibacterium nucleatum, Eggerthella lenta, and Propionibacterium propionicum. Prealbumin from 04/10/18 was 22.9. Encourage nutritional supplementation with protein to help the healing process. Renewed his Dilaudid for pain (30 tabs) to be dispensed on 06/10/18. Renewed his Valium for spasm (30 tabs) to be dispensed on 06/10/18. Followup 2 weeks.
[2018-06-22 08:14] VITALS: BP 129/68; PULSE 72; RESP 18; TEMP 37.1; BMI 35.0
--- NOTE | 2018-06-22 21:41 | PCM.WC.PN ---
Type of Wound Date of Service: 06/22/18 Chief Complaint: Nonhealing ulcer sacral area. History of Wound: Surgery 04/09/18 - Excision painful recurrent complicated extensive pilonidal cyst with draining sinus with extension to muscular anal sphincter. Wound care - VAC. Operative culture - Streptococcus mitis/oralis, Bacteroides vulgatus, Fusobacterium nucleatum, Eggerthella lenta, and Propionibacterium propionicum. He was treated initially with Doxycycline. He was switched to Cleocin and has finished them. Prealbumin from 04/10/18 was 22.9. Encourage nutritional supplementation with protein to help the healing process. Progress of Wound: Improved. - Physical Exam Vital Signs Temp Pulse Resp BP 98.8 F 72 18 129/68 H 06/22/18 08:14 06/22/18 08:14 06/22/18 08:14 06/22/18 08:14 Wound Measurements and Assessment WC - Nurse 1 - General Ulcer Measurement Start: 06/08/18 08:15 Freq: Status: Active Protocol: Activity Type Activity Date Activity User E-Sign Co-Sign Detail Recorded Client Recorded Date Recorded By Document 06/22/18 08:14 DL [id number] 06/22/18 08:24 DL 06/22/18 08:14 Wound Center Nurse 1 [Ulcer Assessment] #1 Sacral -Current Size (cm) - Length 6.1 -Current Size (cm) - Width 2 -Current Size (cm) - Depth 1.6 -Total Square Cm 12.2 -Photo Taken No -Exudate Amt Medium -Exudate Type Serosanguineous -Wound Margin Distinct, Outline Attached -Granulation Amt Large (67-100%) -Granulation Quality Red -Slough/Fibrin No -Necrosis Amt Small (1-33%) -Necrotic Tissue Type Adherent Slough -Texture (Rayna-wound Skin Appearance) Scarring -Moisture (Rayna-wound Skin Appearance No Abnormality ) -Color (Rayna-wound Skin Appearance) No Abnormality -Temperature (Rayna-wound Skin No Abnormality Appearance) (Pt Warm) -Tenderness on Palpation (Rayna-wound Yes Skin Appearance) -Ulcer Cleansing Rinsed/ Irrigated with Saline -Foul Odor after Cleansing No -Anesthetic Used 4% Lidocaine Solution WC - Nurse 2 - General Ulcer CM Notes Start: 06/08/18 08:15 Freq: Status: Active Protocol: Activity Type Activity Date Activity User E-Sign Co-Sign Detail Recorded Client Recorded Date Recorded By Document 06/22/18 08:55 [id number] 06/22/18 08:55 06/22/18 08:55 Wound Center Nurse 2 [Procedure/Treatment] -Time 08:55 -Correct Patient Yes -Correct Side, Site, Position Yes -Correct Procedure Yes -Procedure Performed Yes -Type of Procedure Debridement -Clinical Debridement Subcutaneous -Post Debridement Size (cm) - Length 6.2 -Post Debridement Size (cm) - Width 2 -Post Debridement Size (cm) - Depth 1.6 -Total Square Cm 12.4 -Wound/Ulcer Outcome Not Healed -Ulcer Cleansing Rinsed/ Irrigated with Saline -Foul Odor after Cleansing No -Bioengineered Tissue No -Bleeding Controlled with Pressure -Offloading No -Treatment Response Procedure Tolerated Well [See Physician Procedure note for Specifics] Pain Scale: 0-10 Numeric [Pain] -Is Patient Pain Free? Yes Debridement Note Post-Debridement Measurements/Treatment WC - Nurse 2 - General Ulcer CM Notes Start: 06/08/18 08:15 Freq: Status: Active Protocol: Activity Type Activity Date Activity User E-Sign Co-Sign Detail Recorded Client Recorded Date Recorded By Document 06/08/18 08:38 [id number] 06/08/18 08:42 Document 06/22/18 08:55 [id number] 06/22/18 08:55 06/08/18 06/22/18 08:38 08:55 Wound Center Nurse 2 #1 Sacral -Time 08:39 08:55 -Correct Patient Yes Yes -Correct Side, Site, Position Yes Yes -Correct Procedure Yes Yes -Procedure Performed Yes Yes -Type of Procedure Debridement Debridement -Clinical Debridement Subcutaneous Subcutaneous -Post Debridement Size (cm) - Length 8.1 6.2 -Post Debridement Size (cm) - Width 1.8 2 -Post Debridement Size (cm) - Depth 0.8 1.6 -Total Square Cm 14.58 12.4 -Wound/Ulcer Outcome Not Healed Not Healed -Ulcer Cleansing Rinsed/ Irrigated with Saline -Foul Odor after Cleansing No No -Bioengineered Tissue No No -Bleeding Controlled with Pressure Pressure -Other 6:00--1.6cm -Offloading No No -Treatment Response Procedure Procedure Tolerated Well Tolerated Well Pain Scale: 0-10 Numeric Is Patient Pain Free? Yes Yes Wound debrided: #1 Sacral area. Laterality: Not Applicable Wound Grade/Stage: 3. Type of Debridement: Excisional debridement Anesthesia Used: 4% Lidocaine Solution Depth: Down to and including healthy tissue, in the subcutaneous layer Percentage of wound debrided: 100 Instrument Used: 5mm curette Tissue Removed: subcutaneous tissue. Severity: Fat Layer Exposed Amount of bleeding with debridement: Mild Bleeding Controlled with: Pressure Patient tolerated procedure well Assessment/Plan Assessment: 1. Nonhealing ulcer sacral area. 2. Painful recurrent complicated extensive pilonidal cyst with draining sinus with extension to muscular anal sphincter. 3. Former smoker. 4. s/p excision painful recurrent complicated extensive pilonidal cyst with draining sinus with extension to muscular anal sphincter. Plan: Continue the VAC to be changed three times per week at 150 mmHg continuous suction. There is improvement as the ulcer is getting smaller. The most inferior aspect of the ulcer has a little more depth than the rest of the healing ulcer and continues to improve and get more shallow. Discussed with the family the importance of making sure this little depth area inferiorly is packed completely with the VAC. Otherwise there is the risk that healing may occur over this small pocket and increase chance of recurrent drainage issues that may necessitate additional surgery. They voice understanding. Also discussed the transition from the VAC to daily Silver dressing changes in preparation for returning to work when not needing pain medication anymore. He has finished the Cleocin for operative culture that showed Streptococcus mitis/oralis, Bacteroides vulgatus, Fusibacterium nucleatum, Eggerthella lenta, and Propionibacterium propionicum. Prealbumin from 04/10/18 was 22.9. Encourage nutritional supplementation with protein to help the healing process. Renewed his Dilaudid for pain (30 tabs). Renewed his Valium for spasm (30 tabs). Tentative return to work 07/20/18. Followup 2 weeks.
== END 2018-07-02 23:59 ==
LOC: WC 08:00
PROVIDERS: Family Provider Family Medicine; PCP Family Medicine; Visit Provider Surgery
DX: L05.91 Pilonidal cyst without abscess (principal); Z87.891 Personal history of nicotine dependence; G89.18 Other acute postprocedural pain; L98.422 Non-pressure chronic ulcer of back with fat layer exposed
CPT/HCPCS: 11042; 97605

== ENCOUNTER 2018-07-27 08:00 | Outpatient (RCR) | payer BC, SELFPAY ==
[2018-07-03 01:26] VITALS: BP 129/68; PULSE 72; RESP 18; TEMP 37.1
[2018-07-06 08:26] VITALS: BP 139/79; PULSE 82; RESP 16; TEMP 36.4; BMI 35.0
--- NOTE | 2018-07-06 10:38 | PCM.WC.PN ---
(1) Non-pressure chronic ulcer of skin of other sites with muscle involvement without evidence of necrosis Status: Chronic Current Visit: Yes Code(s): L98.495 - Non-pressure chronic ulcer of skin of other sites with muscle involvement without evidence of necrosis Comment: nonhealing ulcer sacral area (2) Former smoker Status: Chronic Current Visit: Yes Code(s): Z87.891 - Personal history of nicotine dependence (3) Pilonidal sinus without abscess Status: Chronic Current Visit: Yes Code(s): L05.92 - Pilonidal sinus without abscess Comment: recurrent painful complicated extensive pilonidal sinus Type of Wound Date of Service: 07/06/18 Chief Complaint: Nonhealing ulcer sacral area. History of Wound: Surgery 04/09/18 - Excision painful recurrent complicated extensive pilonidal cyst with draining sinus with extension to muscular anal sphincter. Wound care - VAC. Operative culture - Streptococcus mitis/oralis, Bacteroides vulgatus, Fusobacterium nucleatum, Eggerthella lenta, and Propionibacterium propionicum. He was treated initially with Doxycycline. He was switched to Cleocin and has finished them. Prealbumin from 04/10/18 was 22.9. Encourage nutritional supplementation with protein to help the healing process. Progress of Wound: Improved. Does have tunneling at the 6 o'clock position. - Physical Exam Vital Signs Temp Pulse Resp BP 97.5 F L 82 16 139/79 H 07/06/18 08:26 07/06/18 08:26 07/06/18 08:26 07/06/18 08:26 General: Alert, Oriented x3, Cooperative HEENT: Atraumatic Oral: Moist Mucosa Lungs: Normal air movement Cardiovascular: Regular rate Skin: Ulcer/ Wound - Pilonidal area. Has increased tunneling at 6 o'clock. Wound Measurements and Assessment WC - Nurse 1 - General Ulcer Measurement Start: 07/06/18 08:25 Freq: Status: Active Protocol: Activity Type Activity Date Activity User E-Sign Co-Sign Detail Recorded Client Recorded Date Recorded By Document 07/06/18 08:26 DV [id number] 07/06/18 08:37 DV 07/06/18 08:26 Wound Center Nurse 1 [Ulcer Assessment] #1 Sacral -Combined with other wound No -Current Size (cm) - Length 6.3 -Current Size (cm) - Width 1.5 -Current Size (cm) - Depth 0.8 -Total Square Cm 9.45 -Date of Last Picture (Recall this 07/06/18 field) -Photo Taken Yes -Epithelialization Small 1-33% -Tunneling No -Undermining/Tunneling No -Circular Undermining No -Classification - Thickness Full Thickness without Exposed Support Structure -Granulation Amt Large (67-100%) -Granulation Quality Red -Slough/Fibrin Yes -Necrosis Amt Small (1-33%) -Necrotic Tissue Type Adherent Slough -Structure Exposed None/Limited to Skin Breakdown -Texture (Rayna-wound Skin Appearance) Assessed Scarring -Moisture (Rayna-wound Skin Appearance No Abnormality ) Assessed -Color (Rayna-wound Skin Appearance) No Abnormality Assessed -Temperature (Rayna-wound Skin No Abnormality Appearance) (Pt Warm) -Tenderness on Palpation (Rayna-wound No Skin Appearance) -Ulcer Cleansing soap -Foul Odor after Cleansing No -Anesthetic Used 4% Lidocaine Solution 5% Lidocaine Gel WC - Nurse 2 - General Ulcer CM Notes Start: 07/06/18 08:25 Freq: Status: Active Protocol: Activity Type Activity Date Activity User E-Sign Co-Sign Detail Recorded Client Recorded Date Recorded By Document 07/06/18 08:45 HERBERT [id number] 07/06/18 08:46 HERBERT 07/06/18 08:45 Wound Center Nurse 2 [Procedure/Treatment] -Time 08:45 -Correct Patient Yes -Correct Side, Site, Position Yes -Correct Procedure Yes -Procedure Performed Yes -Type of Procedure Debridement -Clinical Debridement Subcutaneous -Post Debridement Size (cm) - Length 6.5 -Post Debridement Size (cm) - Width 3.0 -Post Debridement Size (cm) - Depth 0.8 -Total Square Cm 19.50 -Wound/Ulcer Outcome Not Healed -Ulcer Cleansing Rinsed/ Irrigated with Saline -Foul Odor after Cleansing No -Bioengineered Tissue No -Bleeding Controlled with Pressure -Offloading No -Treatment Response Procedure Tolerated Well [See Physician Procedure note for Specifics] Pain Scale: 0-10 Numeric [Pain] -Is Patient Pain Free? Yes Musculoskeletal: No Tenderness to Palpation of Joints or Extremities Neurological: Neuro grossly intact Psych/Mental Status: Normal Affect, Appropriate Debridement Note Post-Debridement Measurements/Treatment WC - Nurse 2 - General Ulcer CM Notes Start: 07/06/18 08:25 Freq: Status: Active Protocol: Activity Type Activity Date Activity User E-Sign Co-Sign Detail Recorded Client Recorded Date Recorded By Document 07/06/18 08:45 HERBERT [id number] 07/06/18 08:46 HERBERT 07/06/18 08:45 Wound Center Nurse 2 #1 Sacral -Time 08:45 -Correct Patient Yes -Correct Side, Site, Position Yes -Correct Procedure Yes -Procedure Performed Yes -Type of Procedure Debridement -Clinical Debridement Subcutaneous -Post Debridement Size (cm) - Length 6.5 -Post Debridement Size (cm) - Width 3.0 -Post Debridement Size (cm) - Depth 0.8 -Total Square Cm 19.50 -Wound/Ulcer Outcome Not Healed -Ulcer Cleansing Rinsed/ Irrigated with Saline -Foul Odor after Cleansing No -Bioengineered Tissue No -Bleeding Controlled with Pressure -Offloading No -Treatment Response Procedure Tolerated Well Pain Scale: 0-10 Numeric Is Patient Pain Free? Yes Wound debrided: Pilonidal area/sacral area Type of Debridement: Excisional debridement Anesthesia Used: 4% Lidocaine Solution Depth: Down to and including healthy tissue, in the subcutaneous layer Percentage of wound debrided: 100 Instrument Used: 5mm curette Tissue Removed: Subcutaneous tissue and slough Severity: Fat Layer Exposed Amount of bleeding with debridement: Mild Bleeding Controlled with: Pressure Patient tolerated procedure well Assessment/Plan Active Problems (Last Updated 02/17/18 @ 15:52 by Viktoriya Cameron) Non-pressure chronic ulcer of skin of other sites with muscle involvement without evidence of necrosis (Chronic) nonhealing ulcer sacral area Former smoker (Chronic) Pilonidal sinus without abscess (Chronic) recurrent painful complicated extensive pilonidal sinus Assessment: 1. Nonhealing ulcer sacral area. 2. Painful recurrent complicated extensive pilonidal cyst with draining sinus with extension to muscular anal sphincter. 3. Former smoker. 4. s/p excision painful recurrent complicated extensive pilonidal cyst with draining sinus with extension to muscular anal sphincter. Plan: Continue the VAC to be changed three times per week at 150 mmHg continuous suction. Will switch to black foam. There is improvement as the ulcer is getting smaller. There is tunneling at the 6 o'clock position. Patient is wanting to continue the VAC and would like to return to work tomorrow. He states that it should not be an issue to have the VAC on while at work. Discussed using a SNAP vac since he is not having much drainage and it is smaller so it is easier for him to be mobile with. Will try to get SNAP approval. Patient states he is ok coming in twice weekly for the SNAP change. He only needs pain medicine at the VAC dressing changes. He has been able to control his pain during the day with ibuprofen. He has finished the Cleocin for operative culture that showed Streptococcus mitis/oralis, Bacteroides vulgatus, Fusibacterium nucleatum, Eggerthella lenta, and Propionibacterium propionicum. Prealbumin from 04/10/18 was 22.9. Encourage nutritional supplementation with protein to help the healing process. Renewed his Dilaudid for pain (30 tabs). Renewed his Valium for spasm (30 tabs). Return to work 07/08/18. Followup [address] Melendez.
[2018-07-13 08:36] VITALS: BP 151/76; PULSE 70; RESP 18; TEMP 36.4; BMI 35.0
--- NOTE | 2018-07-13 20:43 | PN.PCM_ITS ---
Type of Wound Date of Service: 07/13/18 Chief Complaint: Nonhealing ulcer sacral area. History of Wound: Surgery 04/09/18 - Excision painful recurrent complicated extensive pilonidal cyst with draining sinus with extension to muscular anal sphincter. Wound care - VAC. Operative culture - Streptococcus mitis/oralis, Bacteroides vulgatus, Fusobacterium nucleatum, Eggerthella lenta, and Propionibacterium propionicum. He was treated initially with Doxycycline. He was switched to Cleocin and has finished them. Prealbumin from 04/10/18 was 22.9. Encourage nutritional supplementation with protein to help the healing process. He returned to work last week and is doing ok. Progress of Wound: Improved. - Physical Exam Vital Signs Temp Pulse Resp BP 97.5 F L 70 18 151/76 H 07/13/18 08:36 07/13/18 08:36 07/13/18 08:36 07/13/18 08:36 Wound Measurements and Assessment WC - Nurse 1 - General Ulcer Measurement Start: 07/06/18 08:25 Freq: Status: Active Protocol: Activity Type Activity Date Activity User E-Sign Co-Sign Detail Recorded Client Recorded Date Recorded By Document 07/13/18 08:36 MW [id number] 07/13/18 08:48 MW 07/13/18 08:36 Wound Center Nurse 1 [Ulcer Assessment] #1 Sacral -Combined with other wound No -Current Size (cm) - Length 5.5 -Current Size (cm) - Width 1.0 -Current Size (cm) - Depth 1.2 -Total Square Cm 5.50 -Photo Taken No -Epithelialization None Present -Tunneling Yes -Tunneling Position (O'clock) 6 -Tunneling Distance (cm) 4.5 -Undermining/Tunneling No -Circular Undermining No -Exudate Amt Small -Exudate Type Serosanguineous -Wound Margin Indistinct, Non -Visible -Granulation Amt Large (67-100%) -Granulation Quality [place] -Slough/Fibrin Yes -Necrosis Amt Small (1-33%) -Necrotic Tissue Type Adherent Slough -Structure Exposed N/A -Texture (Rayna-wound Skin Appearance) Assessed Scarring -Moisture (Rayna-wound Skin Appearance No Abnormality ) Assessed -Color (Rayna-wound Skin Appearance) No Abnormality Assessed -Temperature (Rayna-wound Skin No Abnormality Appearance) (Pt Warm) -Tenderness on Palpation (Rayna-wound No Skin Appearance) -Ulcer Cleansing Rinsed/ Irrigated with Saline -Foul Odor after Cleansing No -Anesthetic Used 4% Lidocaine Solution [Edema Assessment] -Lower Limb Edema Present No - Nurse 2 - General Ulcer CM Notes Start: 07/06/18 08:25 Freq: Status: Active Protocol: Activity Type Activity Date Activity User E-Sign Co-Sign Detail Recorded Client Recorded Date Recorded By Document 07/13/18 09:11 [id number] 07/13/18 09:12 07/13/18 09:11 Wound Center Nurse 2 [Procedure/Treatment] #1 Sacral -Time 09:11 -Correct Patient Yes -Correct Side, Site, Position Yes -Correct Procedure Yes -Procedure Performed Yes -Type of Procedure Debridement -Clinical Debridement Subcutaneous -Post Debridement Size (cm) - Length 5.6 -Post Debridement Size (cm) - Width 1.1 -Post Debridement Size (cm) - Depth 1.2 -Total Square Cm 6.16 -Wound/Ulcer Outcome Not Healed -Ulcer Cleansing Rinsed/ Irrigated with Saline -Foul Odor after Cleansing No -Bioengineered Tissue No -Bleeding Controlled with Pressure -Offloading No -Treatment Response Procedure Tolerated Well [See Physician Procedure note for Specifics] Pain Scale: 0-10 Numeric [Pain] -Is Patient Pain Free? Yes Debridement Note Post-Debridement Measurements/Treatment - Nurse 2 - General Ulcer CM Notes Start: 07/06/18 08:25 Freq: Status: Active Protocol: Activity Type Activity Date Activity User E-Sign Co-Sign Detail Recorded Client Recorded Date Recorded By Document 07/06/18 08:45 [id number] 07/06/18 08:46 Document 07/13/18 09:11 [id number] 07/13/18 09:12 07/06/18 07/13/18 08:45 09:11 Wound Center Nurse 2 #1 Sacral -Time 08:45 09:11 -Correct Patient Yes Yes -Correct Side, Site, Position Yes Yes -Correct Procedure Yes Yes -Procedure Performed Yes Yes -Type of Procedure Debridement Debridement -Clinical Debridement Subcutaneous Subcutaneous -Post Debridement Size (cm) - Length 6.5 5.6 -Post Debridement Size (cm) - Width 3.0 1.1 -Post Debridement Size (cm) - Depth 0.8 1.2 -Total Square Cm 19.50 6.16 -Wound/Ulcer Outcome Not Healed Not Healed -Ulcer Cleansing Rinsed/ Rinsed/ Irrigated with Irrigated with Saline Saline -Foul Odor after Cleansing No No -Bioengineered Tissue No No -Bleeding Controlled with Pressure Pressure -Offloading No No -Treatment Response Procedure Procedure Tolerated Well Tolerated Well Pain Scale: 0-10 Numeric Is Patient Pain Free? Yes Yes Wound debrided: #1 Sacral area. Laterality: Not Applicable Wound Grade/Stage: 3. Type of Debridement: Excisional debridement Anesthesia Used: 4% Lidocaine Solution Depth: Down to and including healthy tissue, in the subcutaneous layer Percentage of wound debrided: 100 Instrument Used: 5mm curette Tissue Removed: subcutaneous tissue. Severity: Fat Layer Exposed Amount of bleeding with debridement: Mild Bleeding Controlled with: Pressure Patient tolerated procedure well Assessment/Plan Active Problems (Last Updated 02/17/18 @ 15:52 by Viktoriya Cameron) Non-pressure chronic ulcer of skin of other sites with muscle involvement without evidence of necrosis (Chronic) nonhealing ulcer sacral area Former smoker (Chronic) Pilonidal sinus without abscess (Chronic) recurrent painful complicated extensive pilonidal sinus Assessment: 1. Nonhealing ulcer sacral area. 2. Painful recurrent complicated extensive pilonidal cyst with draining sinus with extension to muscular anal sphincter. 3. Former smoker. 4. s/p excision painful recurrent complicated extensive pilonidal cyst with draining sinus with extension to muscular anal sphincter. Plan: The ulcer continues to improve. Will stop the VAC as a holiday. Begin Silver dressing changes daily. The most inferior aspect of the ulcer has a little more depth than the rest of the healing ulcer and continues to improve and get more shallow. Discussed with the family the importance of making sure this little depth area inferiorly is packed completely with the Silver dressing. Otherwise there is the risk that healing may occur over this small pocket and increase chance of recurrent drainage issues that may necessitate additional surgery. They voice understanding. He has finished the Cleocin for operative culture that showed Streptococcus mitis/oralis, Bacteroides vulgatus, Fusibacterium nucleatum, Eggerthella lenta, and Propionibacterium propionicum. Prealbumin from 04/10/18 was 22.9. Encourage nutritional supplementation with protein to help the healing process. Renewed his Valium for spasm (30 tabs). He has returned to work last week and is doing ok. Followup one week.
[2018-07-20 08:14] VITALS: BP 142/87; PULSE 73; RESP 18; TEMP 36.6; BMI 35.0
--- NOTE | 2018-07-20 17:16 | PN.PCM_ITS ---
Type of Wound Date of Service: 07/20/18 Chief Complaint: Nonhealing ulcer sacral area. History of Wound: Surgery 04/09/18 - Excision painful recurrent complicated extensive pilonidal cyst with draining sinus with extension to muscular anal sphincter. Wound care - Silver. Operative culture - Streptococcus mitis/oralis, Bacteroides vulgatus, Fusobacterium nucleatum, Eggerthella lenta, and Propionibacterium propionicum. He was treated initially with Doxycycline. He was switched to Cleocin and has finished them. Prealbumin from 04/10/18 was 22.9. Encourage nutritional supplementation with protein to help the healing process. He has returned to work last and is doing ok. Progress of Wound: Improved. - Physical Exam Vital Signs Temp Pulse Resp BP 97.9 F 73 18 142/87 H 07/20/18 08:14 07/20/18 08:14 07/20/18 08:14 07/20/18 08:14 Wound Measurements and Assessment WC - Nurse 1 - General Ulcer Measurement Start: 07/06/18 08:25 Freq: Status: Active Protocol: Activity Type Activity Date Activity User E-Sign Co-Sign Detail Recorded Client Recorded Date Recorded By Document 07/20/18 08:14 DV [id number] 07/20/18 08:24 DV 07/20/18 08:14 Wound Center Nurse 1 [Ulcer Assessment] #1 Sacral -Combined with other wound No -Current Size (cm) - Length 4.6 -Current Size (cm) - Width 2.0 -Current Size (cm) - Depth 0.7 -Total Square Cm 9.20 -Photo Taken No -Epithelialization None Present -Tunneling Yes -Tunneling Position (O'clock) 6 -Tunneling Distance (cm) 6.3 -Undermining/Tunneling No -Circular Undermining No -Classification - Thickness Full Thickness without Exposed Support Structure -Wound Margin Distinct, Outline Attached -Granulation Amt Large (67-100%) -Granulation Quality Red -Slough/Fibrin Yes -Necrosis Amt Small (1-33%) -Necrotic Tissue Type Eschar -Structure Exposed Fascia Fat Layer Exposed -Texture (Rayna-wound Skin Appearance) Assessed Scarring -Moisture (Rayna-wound Skin Appearance Assessed ) -Color (Rayna-wound Skin Appearance) Assessed Erythema -Temperature (Rayna-wound Skin No Abnormality Appearance) (Pt Warm) -Tenderness on Palpation (Rayna-wound Yes Skin Appearance) -Ulcer Cleansing Rinsed/ Irrigated with Saline -Foul Odor after Cleansing No -Anesthetic Used 4% Lidocaine Solution - Nurse 2 - General Ulcer CM Notes Start: 07/06/18 08:25 Freq: Status: Active Protocol: Activity Type Activity Date Activity User E-Sign Co-Sign Detail Recorded Client Recorded Date Recorded By Document 07/20/18 08:35 [id number] 07/20/18 08:42 07/20/18 08:35 Wound Center Nurse 2 [Procedure/Treatment] -Time 08:36 -Correct Patient Yes -Correct Side, Site, Position Yes -Correct Procedure Yes -Procedure Performed Yes -Type of Procedure Debridement -Clinical Debridement Subcutaneous -Post Debridement Size (cm) - Length 6.4 -Post Debridement Size (cm) - Width 1.0 -Post Debridement Size (cm) - Depth 0.4 -Total Square Cm 6.40 -Wound/Ulcer Outcome Not Healed -Ulcer Cleansing Rinsed/ Irrigated with Saline -Foul Odor after Cleansing No -Bioengineered Tissue No -Bleeding Controlled with Pressure -Offloading No -Treatment Response Procedure Tolerated Well [See Physician Procedure note for Specifics] Pain Scale: 0-10 Numeric [Pain] -Is Patient Pain Free? Yes Debridement Note Post-Debridement Measurements/Treatment - Nurse 2 - General Ulcer CM Notes Start: 07/06/18 08:25 Freq: Status: Active Protocol: Activity Type Activity Date Activity User E-Sign Co-Sign Detail Recorded Client Recorded Date Recorded By Document 07/06/18 08:45 [id number] 07/06/18 08:46 Document 07/13/18 09:11 [id number] 07/13/18 09:12 Document 07/20/18 08:35 [id number] 07/20/18 08:42 07/06/18 07/13/18 07/20/18 08:45 09:11 08:35 Wound Center Nurse 2 #1 Sacral -Time 08:45 09:11 08:36 -Correct Patient Yes Yes Yes -Correct Side, Site, Position Yes Yes Yes -Correct Procedure Yes Yes Yes -Procedure Performed Yes Yes Yes -Type of Procedure Debridement Debridement Debridement -Clinical Debridement Subcutaneous Subcutaneous Subcutaneous -Post Debridement Size (cm) - Length 6.5 5.6 6.4 -Post Debridement Size (cm) - Width 3.0 1.1 1.0 -Post Debridement Size (cm) - Depth 0.8 1.2 0.4 -Total Square Cm 19.50 6.16 6.40 -Wound/Ulcer Outcome Not Healed Not Healed Not Healed -Ulcer Cleansing Rinsed/ Rinsed/ Rinsed/ Irrigated with Irrigated with Irrigated with Saline Saline Saline -Foul Odor after Cleansing No No No -Bioengineered Tissue No No No -Bleeding Controlled with Pressure Pressure Pressure -Offloading No No No -Treatment Response Procedure Procedure Procedure Tolerated Well Tolerated Well Tolerated Well Pain Scale: 0-10 Numeric Is Patient Pain Free? Yes Yes Yes Wound debrided: #1 Sacral area. Laterality: Not Applicable Wound Grade/Stage: 3. Type of Debridement: Excisional debridement Anesthesia Used: 4% Lidocaine Solution Depth: Down to and including healthy tissue, in the subcutaneous layer Percentage of wound debrided: 100 Instrument Used: 3mm curette Tissue Removed: subcutaneous tissue. Severity: Fat Layer Exposed Amount of bleeding with debridement: Mild Bleeding Controlled with: Pressure Patient tolerated procedure well Assessment/Plan Assessment: 1. Nonhealing ulcer sacral area. 2. Painful recurrent complicated extensive pilonidal cyst with draining sinus with extension to muscular anal sphincter. 3. Former smoker. 4. s/p excision painful recurrent complicated extensive pilonidal cyst with draining sinus with extension to muscular anal sphincter. Plan: Continue Silver dressing changes daily. Will return the VAC. The most inferior aspect of the ulcer has a little more depth than the rest of the healing ulcer and continues to improve and get more shallow. Discussed with the family the importance of making sure this little depth area inferiorly is packed completely with the Silver dressing. Otherwise there is the risk that healing may occur over this small pocket and increase chance of recurrent drainage issues that may necessitate additional surgery. They voice unders tanding. He has finished the Cleocin for operative culture that showed Streptococcus mitis/oralis, Bacteroides vulgatus, Fusibacterium nucleatum, Eggerthella lenta, and Propionibacterium propionicum. Prealbumin from 04/10/18 was 22.9. Encourage nutritional supplementation with protein to help the healing process. Renewed his Dilaudid for pain (20 tabs). He has enough Valium for spasm at this time. He has returned to work and is doing ok. Followup one week.
[2018-07-27 08:06] VITALS: BP 136/77; PULSE 98; RESP 18; TEMP 38; BMI 35.0
--- NOTE | 2018-07-27 09:21 | PCM.WC.PN ---
(1) Non-pressure chronic ulcer of skin of other sites with muscle involvement without evidence of necrosis Status: Chronic Current Visit: Yes Code(s): L98.495 - Non-pressure chronic ulcer of skin of other sites with muscle involvement without evidence of necrosis Comment: nonhealing ulcer sacral area (2) Former smoker Status: Chronic Current Visit: Yes Code(s): Z87.891 - Personal history of nicotine dependence (3) Pilonidal sinus without abscess Status: Chronic Current Visit: Yes Code(s): L05.92 - Pilonidal sinus without abscess Comment: recurrent painful complicated extensive pilonidal sinus Type of Wound Date of Service: 07/27/18 Chief Complaint: Nonhealing ulcer sacral area. History of Wound: Surgery 04/09/18 - Excision painful recurrent complicated extensive pilonidal cyst with draining sinus with extension to muscular anal sphincter. Wound care - Silver. Operative culture - Streptococcus mitis/oralis, Bacteroides vulgatus, Fusobacterium nucleatum, Eggerthella lenta, and Propionibacterium propionicum. He was treated initially with Doxycycline. He was switched to Cleocin and has finished them. Prealbumin from 04/10/18 was 22.9. Encourage nutritional supplementation with protein to help the healing process. He has returned to work last and is doing ok. Progress of Wound: Improved. - Physical Exam Vital Signs Temp Pulse Resp BP 100.4 F H 98 18 136/77 H 07/27/18 08:06 07/27/18 08:06 07/27/18 08:06 07/27/18 08:06 General: Alert, Oriented x3, Cooperative HEENT: Atraumatic Oral: Moist Mucosa Lungs: Normal air movement Cardiovascular: Regular rate Extremities: No edema, Capillary Refill Less than 3 Seconds Skin: Ulcer/ Wound - Pilonidal cyst Wound Measurements and Assessment WC - Nurse 1 - General Ulcer Measurement Start: 07/06/18 08:25 Freq: Status: Active Protocol: Activity Type Activity Date Activity User E-Sign Co-Sign Detail Recorded Client Recorded Date Recorded By Document 07/27/18 08:06 DL [id number] 07/27/18 08:17 DL 07/27/18 08:06 Wound Center Nurse 1 [Ulcer Assessment] #1 Sacral -Current Size (cm) - Length 5 -Current Size (cm) - Width 1.3 -Current Size (cm) - Depth 0.9 -Total Square Cm 6.5 -Tunneling Yes -Tunneling Position (O'clock) 6 -Tunneling Distance (cm) 1.5 -Exudate Amt Medium -Exudate Type Serosanguineous -Wound Margin Thickened & Rolled Under -Granulation Amt Medium (34-66%) -Granulation Quality [place] -Necrosis Amt Medium (34-66%) -Necrotic Tissue Type Adherent Slough -Structure Exposed N/A -Texture (Rayna-wound Skin Appearance) Scarring -Moisture (Rayna-wound Skin Appearance No Abnormality ) -Color (Rayna-wound Skin Appearance) No Abnormality -Temperature (Rayna-wound Skin No Abnormality Appearance) (Pt Warm) -Tenderness on Palpation (Rayna-wound No Skin Appearance) -Ulcer Cleansing Rinsed/ Irrigated with Saline -Foul Odor after Cleansing No -Anesthetic Used 4% Lidocaine Solution WC - Nurse 2 - General Ulcer CM Notes Start: 07/06/18 08:25 Freq: Status: Active Protocol: Activity Type Activity Date Activity User E-Sign Co-Sign Detail Recorded Client Recorded Date Recorded By Document 07/27/18 08:33 [id number] 07/27/18 08:37 HERBERT 07/27/18 08:33 Wound Center Nurse 2 [Procedure/Treatment] -Time 08:34 -Correct Patient Yes -Correct Side, Site, Position Yes -Correct Procedure Yes -Procedure Performed Yes -Type of Procedure Debridement -Clinical Debridement Subcutaneous -Post Debridement Size (cm) - Length 5.4 -Post Debridement Size (cm) - Width 1.0 -Post Debridement Size (cm) - Depth 0.2 -Total Square Cm 5.40 -Wound/Ulcer Outcome Not Healed -Ulcer Cleansing Rinsed/ Irrigated with Saline -Foul Odor after Cleansing No -Bioengineered Tissue No -Bleeding Controlled with Pressure -Other tunnel at 6:00- --2.1cm -Offloading No -Treatment Response Procedure Tolerated Well [See Physician Procedure note for Specifics] Pain Scale: 0-10 Numeric [Pain] -Is Patient Pain Free? Yes Musculoskeletal: No Tenderness to Palpation of Joints or Extremities Neurological: Neuro grossly intact Psych/Mental Status: Normal Affect, Appropriate Debridement Note Post-Debridement Measurements/Treatment WC - Nurse 2 - General Ulcer CM Notes Start: 07/06/18 08:25 Freq: Status: Active Protocol: Activity Type Activity Date Activity User E-Sign Co-Sign Detail Recorded Client Recorded Date Recorded By Document 07/06/18 08:45 HERBERT [id number] 07/06/18 08:46 Document 07/13/18 09:11 HERBERT [id number] 07/13/18 09:12 Document 07/20/18 08:35 HERBERT [id number] 07/20/18 08:42 Document 07/27/18 08:33 HERBERT [id number] 07/27/18 08:37 07/06/18 07/13/18 07/20/18 08:45 09:11 08:35 Wound Center Nurse 2 #1 Sacral -Time 08:45 09:11 08:36 -Correct Patient Yes Yes Yes -Correct Side, Site, Position Yes Yes Yes -Correct Procedure Yes Yes Yes -Procedure Performed Yes Yes Yes -Type of Procedure Debridement Debridement Debridement -Clinical Debridement Subcutaneous Subcutaneous Subcutaneous -Post Debridement Size (cm) - Length 6.5 5.6 6.4 -Post Debridement Size (cm) - Width 3.0 1.1 1.0 -Post Debridement Size (cm) - Depth 0.8 1.2 0.4 -Total Square Cm 19.50 6.16 6.40 -Wound/Ulcer Outcome Not Healed Not Healed Not Healed -Ulcer Cleansing Rinsed/ Rinsed/ Rinsed/ Irrigated with Irrigated with Irrigated with Saline Saline Saline -Foul Odor after Cleansing No No No -Bioengineered Tissue No No No -Bleeding Controlled with Pressure Pressure Pressure -Other -Offloading No No No -Treatment Response Procedure Procedure Procedure Tolerated Well Tolerated Well Tolerated Well Pain Scale: 0-10 Numeric Is Patient Pain Free? Yes Yes Yes 07/27/18 08:33 Wound Center Nurse 2 #1 Sacral -Time 08:34 -Correct Patient Yes -Correct Side, Site, Position Yes -Correct Procedure Yes -Procedure Performed Yes -Type of Procedure Debridement -Clinical Debridement Subcutaneous -Post Debridement Size (cm) - Length 5.4 -Post Debridement Size (cm) - Width 1.0 -Post Debridement Size (cm) - Depth 0.2 -Total Square Cm 5.40 -Wound/Ulcer Outcome Not Healed -Ulcer Cleansing Rinsed/ Irrigated with Saline -Foul Odor after Cleansing No -Bioengineered Tissue No -Bleeding Controlled with Pressure -Other tunnel at 6:00- --2.1cm -Offloading No -Treatment Response Procedure Tolerated Well Pain Scale: 0-10 Numeric Is Patient Pain Free? Yes Wound debrided: Pilonidal cyst Type of Debridement: Excisional debridement Anesthesia Used: 4% Lidocaine Solution Depth: Down to and including healthy tissue, in the subcutaneous layer Percentage of wound debrided: 100 Instrument Used: 3mm curette Tissue Removed: Subcutaneous tissue and slough Severity: Limited To Skin Breakdown Amount of bleeding with debridement: Mild Bleeding Controlled with: Pressure, Compression and gauze Patient tolerated procedure well Assessment/Plan Active Problems (Last Updated 02/17/18 @ 15:52 by Viktoriya Cameron) Non-pressure chronic ulcer of skin of other sites with muscle involvement without evidence of necrosis (Chronic) nonhealing ulcer sacral area Former smoker (Chronic) Pilonidal sinus without abscess (Chronic) recurrent painful complicated extensive pilonidal sinus Assessment: 1. Nonhealing ulcer sacral area. 2. Painful recurrent complicated extensive pilonidal cyst with draining sinus with extension to muscular anal sphincter. 3. Former smoker. 4. s/p excision painful recurrent complicated extensive pilonidal cyst with draining sinus with extension to muscular anal sphincter. Plan: Continue Silver dressing changes daily. Will do a silver rope for the tunnel and the calcium alginate with silver to the wound bed. The most inferior aspect of the ulcer has a little more depth than the rest of the healing ulcer and continues to improve and get more shallow. Discussed with the family the importance of making sure this little depth area inferiorly is packed completely with the Silver dressing. Otherwise there is the risk that healing may occur over this small pocket and increase chance of recurrent drainage issues that may necessitate additional surgery. They voice understanding. He has finished the Cleocin for operative culture that showed Streptococcus mitis/oralis, Bacteroides vulgatus, Fusibacterium nucleatum, Eggerthella lenta, and Propionibacterium propionicum. Prealbumin from 04/10/18 was 22.9. Encourage nutritional supplementation with protein to help the healing process. He has enough Valium for spasm at this time. He has returned to work and is doing ok. Followup one week. Code Visit 111xxx-113xx: 31849 Milvia subq tissue 20 sq cm/<
== END 2018-07-30 23:59 ==
LOC: WC 08:00
PROVIDERS: Family Provider Family Medicine; PCP Family Medicine; Visit Provider Surgery
DX: L05.91 Pilonidal cyst without abscess (principal); Z87.891 Personal history of nicotine dependence; L98.422 Non-pressure chronic ulcer of back with fat layer exposed
CPT/HCPCS: 11042; 97605

== ENCOUNTER 2018-08-25 15:00 | Outpatient (RCR) | payer BC, SELFPAY ==
[2018-07-31 01:08] VITALS: BP 136/77; PULSE 98; RESP 18; TEMP 38
[2018-08-03 08:13] VITALS: BP 155/83; PULSE 59; RESP 18; TEMP 36.8; BMI 35.0
--- NOTE | 2018-08-03 17:29 | PCM.WC.PN ---
Type of Wound Date of Service: 08/03/18 Chief Complaint: Nonhealing ulcer sacral area. History of Wound: Surgery 04/09/18 - Excision painful recurrent complicated extensive pilonidal cyst with draining sinus with extension to muscular anal sphincter. Wound care - Silver. Operative culture - Streptococcus mitis/oralis, Bacteroides vulgatus, Fusobacterium nucleatum, Eggerthella lenta, and Propionibacterium propionicum. He was treated initially with Doxycycline. He was switched to Cleocin and has finished them. Prealbumin from 04/10/18 was 22.9. Encourage nutritional supplementation with protein to help the healing process. He has returned to work and is doing ok. Progress of Wound: Improved. - Physical Exam Vital Signs Temp Pulse Resp BP 98.2 F 59 L 18 155/83 H 08/03/18 08:13 08/03/18 08:13 08/03/18 08:13 08/03/18 08:13 Wound Measurements and Assessment WC - Nurse 1 - General Ulcer Measurement Start: 08/03/18 08:13 Freq: Status: Active Protocol: Activity Type Activity Date Activity User E-Sign Co-Sign Detail Recorded Client Recorded Date Recorded By Document 08/03/18 08:13 DL [id number] 08/03/18 08:21 DL 08/03/18 08:13 Wound Center Nurse 1 [Ulcer Assessment] #1 Sacral -Current Size (cm) - Length 5.3 -Current Size (cm) - Width 1 -Current Size (cm) - Depth 0.4 -Total Square Cm 5.3 -Photo Taken No -Tunneling Position (O'clock) 6 -Tunneling Distance (cm) 2 -Exudate Amt Small -Exudate Type Serosanguineous -Wound Margin Thickened -Granulation Amt Large (67-100%) -Granulation Quality Red -Necrosis Amt Small (1-33%) -Necrotic Tissue Type Adherent Slough -Structure Exposed N/A -Texture (Rayna-wound Skin Appearance) Scarring -Moisture (Rayna-wound Skin Appearance No Abnormality ) -Color (Rayna-wound Skin Appearance) No Abnormality -Temperature (Rayna-wound Skin No Abnormality Appearance) (Pt Warm) -Tenderness on Palpation (Rayna-wound No Skin Appearance) -Ulcer Cleansing Rinsed/ Irrigated with Saline -Foul Odor after Cleansing No -Anesthetic Used 4% Lidocaine Solution WC - Nurse 2 - General Ulcer CM Notes Start: 08/03/18 08:13 Freq: Status: Active Protocol: Activity Type Activity Date Activity User E-Sign Co-Sign Detail Recorded Client Recorded Date Recorded By Document 08/03/18 08:29 HERBERT [id number] 08/03/18 08:36 HERBERT 08/03/18 08:29 Wound Center Nurse 2 [Procedure/Treatment] -Time 08:30 -Correct Patient Yes -Correct Side, Site, Position Yes -Correct Procedure Yes -Procedure Performed Yes -Type of Procedure Debridement -Clinical Debridement Subcutaneous -Post Debridement Size (cm) - Length 5.4 -Post Debridement Size (cm) - Width 1.1 -Post Debridement Size (cm) - Depth 0.4 -Total Square Cm 5.94 -Wound/Ulcer Outcome Not Healed -Ulcer Cleansing Rinsed/ Irrigated with Saline -Foul Odor after Cleansing No -Bioengineered Tissue No -Bleeding Controlled with Pressure -Offloading No -Treatment Response Procedure Tolerated Well [See Physician Procedure note for Specifics] Pain Scale: 0-10 Numeric [Pain] -Is Patient Pain Free? Yes Debridement Note Post-Debridement Measurements/Treatment WC - Nurse 2 - General Ulcer CM Notes Start: 08/03/18 08:13 Freq: Status: Active Protocol: Activity Type Activity Date Activity User E-Sign Co-Sign Detail Recorded Client Recorded Date Recorded By Document 08/03/18 08:29 HERBERT [id number] 08/03/18 08:36 HERBERT 08/03/18 08:29 Wound Center Nurse 2 #1 Sacral -Time 08:30 -Correct Patient Yes -Correct Side, Site, Position Yes -Correct Procedure Yes -Procedure Performed Yes -Type of Procedure Debridement -Clinical Debridement Subcutaneous -Post Debridement Size (cm) - Length 5.4 -Post Debridement Size (cm) - Width 1.1 -Post Debridement Size (cm) - Depth 0.4 -Total Square Cm 5.94 -Wound/Ulcer Outcome Not Healed -Ulcer Cleansing Rinsed/ Irrigated with Saline -Foul Odor after Cleansing No -Bioengineered Tissue No -Bleeding Controlled with Pressure -Offloading No -Treatment Response Procedure Tolerated Well Pain Scale: 0-10 Numeric Is Patient Pain Free? Yes Wound debrided: #1 Sacral area. Laterality: Not Applicable Wound Grade/Stage: 3. Type of Debridement: Excisional debridement Anesthesia Used: 4% Lidocaine Solution Depth: Down to and including healthy tissue, in the subcutaneous layer Percentage of wound debrided: 100 Instrument Used: 5mm curette Tissue Removed: subcutaneous tissue. Severity: Fat Layer Exposed Amount of bleeding with debridement: Mild Bleeding Controlled with: Pressure Patient tolerated procedure well - a wound culture was obtained today. Assessment/Plan Assessment: 1. Nonhealing ulcer sacral area. 2. Painful recurrent complicated extensive pilonidal cyst with draining sinus with extension to muscular anal sphincter. 3. Former smoker. 4. s/p excision painful recurrent complicated extensive pilonidal cyst with draining sinus with extension to muscular anal sphincter. Plan: Continue Silver dressing changes daily. It is not progressing as quickly as I would like. Will apply for Santyl combined with the SNAP VAC. A wound culture was obtained today. A positive culture will necessitate antibiotic therapy. The most inferior aspect of the ulcer has a little more depth than the rest of the healing ulcer and has seemed to plateau and not decreasing as fast as i would like at this time. Discussed with the family the importance of making sure this little depth area inferiorly is packed completely with the Silver dressing. Otherwise there is the risk that healing may occur over this small pocket and increase chance of recurrent drainage issues that may necessitate additional surgery. They voice understanding. He has finished the Cleocin for operative culture that showed Streptococcus mitis/oralis, Bacteroides vulgatus, Fusibacterium nucleatum, Eggerthella lenta, and Propionibacterium propionicum. Prealbumin from 04/10/18 was 22.9. Encourage nutritional supplementation with protein to help the healing process. Renewed his Dilaudid for pain (20 tabs). Renewed his Valium for spasm (20 tabs). He has returned to work and is doing ok. Followup one week. Discussed with the patient that if healing stops and it appears that more surgery may be warranted, he would need to be evaluated at a tertiary center with Colorectal Surgery because of the extension of the previous surgical excision in 04/19 to the muscular anal sphincter. He voices understanding.
[2018-08-10 08:17] VITALS: BP 149/92; PULSE 66; RESP 20; TEMP 36.9; BMI 35.0
--- NOTE | 2018-08-10 11:20 | PCM.WC.PN ---
(1) Non-pressure chronic ulcer of skin of other sites with muscle involvement without evidence of necrosis Status: Chronic Current Visit: Yes Code(s): L98.495 - Non-pressure chronic ulcer of skin of other sites with muscle involvement without evidence of necrosis Comment: nonhealing ulcer sacral area (2) Pilonidal sinus without abscess Status: Chronic Current Visit: Yes Code(s): L05.92 - Pilonidal sinus without abscess Comment: recurrent painful complicated extensive pilonidal sinus (3) Former smoker Status: Chronic Current Visit: Yes Code(s): Z87.891 - Personal history of nicotine dependence Type of Wound Date of Service: 08/10/18 Chief Complaint: Nonhealing ulcer sacral area. History of Wound: Surgery 04/09/18 - Excision painful recurrent complicated extensive pilonidal cyst with draining sinus with extension to muscular anal sphincter. Wound care - Silver. Operative culture - Streptococcus mitis/oralis, Bacteroides vulgatus, Fusobacterium nucleatum, Eggerthella lenta, and Propionibacterium propionicum. He was treated initially with Doxycycline. He was switched to Cleocin and has finished them. Culture 3/4 grew Stphylococcus epidimidis and was started on Doxycycline. Prealbumin from 04/10/18 was 22.9. Encourage nutritional supplementation with protein to help the healing process. He has returned to work and is doing ok. Progress of Wound: Improved. - Physical Exam Vital Signs Temp Pulse Resp BP 98.5 F 66 20 H 149/92 H 08/10/18 08:17 08/10/18 08:17 08/10/18 08:17 08/10/18 08:17 General: Alert, Oriented x3, Cooperative HEENT: Atraumatic Oral: Moist Mucosa Lungs: Normal air movement Cardiovascular: Regular rate Extremities: No edema, Capillary Refill Less than 3 Seconds Skin: Ulcer/ Wound - sacral ulcer Wound Measurements and Assessment WC - Nurse 1 - General Ulcer Measurement Start: 08/03/18 08:13 Freq: Status: Active Protocol: Activity Type Activity Date Activity User E-Sign Co-Sign Detail Recorded Client Recorded Date Recorded By Document 08/10/18 08:17 DL [id number] 08/10/18 08:23 DL 08/10/18 08:17 Wound Center Nurse 1 [Ulcer Assessment] #1 Sacral -Current Size (cm) - Length 4.2 -Current Size (cm) - Width 1 -Current Size (cm) - Depth 0.2 -Total Square Cm 4.2 -Photo Taken No -Tunneling Position (O'clock) 6 -Tunneling Distance (cm) 2 -Exudate Amt Small -Exudate Type Serosanguineous -Wound Margin Thickened & Rolled Under -Granulation Amt Medium (34-66%) -Granulation Quality [place] -Necrosis Amt Medium (34-66%) -Necrotic Tissue Type Adherent Slough -Structure Exposed N/A -Texture (Rayna-wound Skin Appearance) Scarring -Moisture (Rayna-wound Skin Appearance No Abnormality ) -Color (Rayna-wound Skin Appearance) Rubor -Temperature (Rayna-wound Skin No Abnormality Appearance) (Pt Warm) -Tenderness on Palpation (Rayna-wound No Skin Appearance) -Ulcer Cleansing Rinsed/ Irrigated with Saline -Foul Odor after Cleansing No -Anesthetic Used 4% Lidocaine Solution WC - Nurse 2 - General Ulcer CM Notes Start: 08/03/18 08:13 Freq: Status: Active Protocol: Activity Type Activity Date Activity User E-Sign Co-Sign Detail Recorded Client Recorded Date Recorded By Document 08/10/18 08:33 [id number] 08/10/18 08:34 HERBERT 08/10/18 08:33 Wound Center Nurse 2 [Procedure/Treatment] -Time 08:33 -Correct Patient Yes -Correct Side, Site, Position Yes -Correct Procedure Yes -Procedure Performed Yes -Type of Procedure Debridement -Clinical Debridement Subcutaneous -Post Debridement Size (cm) - Length 4.5 -Post Debridement Size (cm) - Width 1.5 -Post Debridement Size (cm) - Depth 2.5 -Total Square Cm 6.75 -Wound/Ulcer Outcome Not Healed -Foul Odor after Cleansing No -Bioengineered Tissue No -Bleeding Controlled with Pressure -Offloading No -Treatment Response Procedure Tolerated Well [See Physician Procedure note for Specifics] Pain Scale: 0-10 Numeric [Pain] -Is Patient Pain Free? Yes Musculoskeletal: No Tenderness to Palpation of Joints or Extremities Neurological: Neuro grossly intact Psych/Mental Status: Normal Affect, Appropriate Debridement Note Post-Debridement Measurements/Treatment WC - Nurse 2 - General Ulcer CM Notes Start: 08/03/18 08:13 Freq: Status: Active Protocol: Activity Type Activity Date Activity User E-Sign Co-Sign Detail Recorded Client Recorded Date Recorded By Document 08/03/18 08:29 [id number] 08/03/18 08:36 Document 08/10/18 08:33 [id number] 08/10/18 08:34 08/03/18 08/10/18 08:29 08:33 Wound Center Nurse 2 #1 Sacral -Time 08:30 08:33 -Correct Patient Yes Yes -Correct Side, Site, Position Yes Yes -Correct Procedure Yes Yes -Procedure Performed Yes Yes -Type of Procedure Debridement Debridement -Clinical Debridement Subcutaneous Subcutaneous -Post Debridement Size (cm) - Length 5.4 4.5 -Post Debridement Size (cm) - Width 1.1 1.5 -Post Debridement Size (cm) - Depth 0.4 2.5 -Total Square Cm 5.94 6.75 -Wound/Ulcer Outcome Not Healed Not Healed -Ulcer Cleansing Rinsed/ Irrigated with Saline -Foul Odor after Cleansing No No -Bioengineered Tissue No No -Bleeding Controlled with Pressure Pressure -Offloading No No -Treatment Response Procedure Procedure Tolerated Well Tolerated Well Pain Scale: 0-10 Numeric Is Patient Pain Free? Yes Yes Wound debrided: sacral ulcer Type of Debridement: Excisional debridement Anesthesia Used: 4% Lidocaine Solution Depth: Down to and including healthy tissue, in the subcutaneous layer Instrument Used: 5mm curette Tissue Removed: Subcutaneous tissue and slough Severity: Fat Layer Exposed Amount of bleeding with debridement: Mild Bleeding Controlled with: Pressure Patient tolerated procedure well Assessment/Plan Active Problems (Last Updated 02/17/18 @ 15:52 by Viktoriya Cameron) Non-pressure chronic ulcer of skin of other sites with muscle involvement without evidence of necrosis (Chronic) nonhealing ulcer sacral area Former smoker (Chronic) Pilonidal sinus without abscess (Chronic) recurrent painful complicated extensive pilonidal sinus Assessment: 1. Nonhealing ulcer sacral area. 2. Painful recurrent complicated extensive pilonidal cyst with draining sinus with extension to muscular anal sphincter. 3. Former smoker. 4. s/p excision painful recurrent complicated extensive pilonidal cyst with draining sinus with extension to muscular anal sphincter. Plan: Applied for Santyl combined with the SNAP VAC. Still have not heard if he approved for the Santyl. Will start SNAP VAC today. A wound culture was obtained 08/03 which grew Staphlococcus epidimidis. He was started on Doxycycline 08/07/18. The most inferior aspect of the ulcer has a little more depth than the rest of the healing ulcer and has seemed to plateau and not decreasing as fast as i would like at this time. There is the risk that healing may occur over this small pocket and increase chance of recurrent drainage issues that may necessitate additional surgery. We will make sure to pack this area with foam with the SNAP VAC. He has finished the Cleocin for operative culture that showed Streptococcus mitis/oralis, Bacteroides vulgatus, Fusibacterium nucleatum, Eggerthella lenta, and Propionibacterium propionicum. Prealbumin from 04/10/18 was 22.9. Encourage nutritional supplementation with protein to help the healing process. He has returned to work and is doing ok. Followup or Friday for a SNAP VAC change and next Friday with Dr. Melendez. Discussed with the patient that if healing stops and it appears that more surgery may be warranted, he would need to be evaluated at a tertiary center with Colorectal Surgery because of the extension of the previous surgical excision in 04/19 to the muscular anal sphincter. He voices understanding. Code Visit 111xxx-113xx: [id number] Milvia subq tissue 20 sq cm/<
[2018-08-13 16:20] VITALS: BP 165/79; PULSE 82; RESP 16; TEMP 36.2; BMI 35.0
[2018-08-17 08:23] VITALS: BP 144/81; PULSE 66; RESP 16; TEMP 36.4; BMI 35.0
--- NOTE | 2018-08-17 11:02 | PCM.WC.PN ---
Type of Wound Date of Service: 08/17/18 Chief Complaint: Nonhealing ulcer sacral area. History of Wound: Surgery 04/09/18 - Excision painful recurrent complicated extensive pilonidal cyst with draining sinus with extension to muscular anal sphincter. Wound care - SNAP VAC. Will add Santyl later this week. Operative culture - Streptococcus mitis/oralis, Bacteroides vulgatus, Fusobacterium nucleatum, Eggerthella lenta, and Propionibacterium propionicum. He was treated initially with Doxycycline. He was switched to Cleocin and has finished them. Due to the slowness in healing, another wound culture was obtained on 08/03/18. It showed MRSE and he was started on Doxycycline. Prealbumin from 04/10/18 was 22.9. Encourage nutritional supplementation with protein to help the healing process. He has returned to work and is doing ok. Progress of Wound: Slowly improving. - Physical Exam Vital Signs Temp Pulse Resp BP 97.6 F L 66 16 144/81 H 08/17/18 08:23 08/17/18 08:23 08/17/18 08:23 08/17/18 08:23 Wound Measurements and Assessment WC - Nurse 1 - General Ulcer Measurement Start: 08/03/18 08:13 Freq: Status: Active Protocol: Activity Type Activity Date Activity User E-Sign Co-Sign Detail Recorded Client Recorded Date Recorded By Document 08/17/18 08:23 DV [id number] 08/17/18 08:28 DV 08/17/18 08:23 Wound Center Nurse 1 [Ulcer Assessment] #1 Sacral -Combined with other wound No -Current Size (cm) - Length 4.5 -Current Size (cm) - Width 1.0 -Current Size (cm) - Depth 1.0 -Total Square Cm 4.50 -Date of Last Picture (Recall this 08/17/18 field) -Photo Taken Yes -Epithelialization Medium 34-66% -Tunneling Yes -Tunneling Position (O'clock) 6 -Tunneling Distance (cm) 2.1 -Undermining/Tunneling No -Circular Undermining No -Classification - Thickness Full Thickness without Exposed Support Structure -Wound Margin Fibrotic Scar, Thickened Scar -Granulation Amt Small (1-33%) -Granulation Quality Pale [place] -Slough/Fibrin Yes -Necrosis Amt Medium (34-66%) -Necrotic Tissue Type Adherent Slough -Structure Exposed None/Limited to Skin Breakdown -Texture (Rayna-wound Skin Appearance) Assessed Scarring Rash -Moisture (Rayna-wound Skin Appearance Assessed ) Weeping -Color (Rayna-wound Skin Appearance) No Abnormality Assessed -Temperature (Rayna-wound Skin No Abnormality Appearance) (Pt Warm) -Ulcer Cleansing Rinsed/ Irrigated with Saline -Foul Odor after Cleansing No -Anesthetic Used 4% Lidocaine Solution - Nurse 2 - General Ulcer CM Notes Start: 08/03/18 08:13 Freq: Status: Active Protocol: Activity Type Activity Date Activity User E-Sign Co-Sign Detail Recorded Client Recorded Date Recorded By Document 08/17/18 08:56 [id number] 08/17/18 08:58 08/17/18 08:56 Wound Center Nurse 2 [Procedure/Treatment] -Time 08:56 -Correct Patient Yes -Correct Side, Site, Position Yes -Correct Procedure Yes -Procedure Performed Yes -Type of Procedure Debridement -Clinical Debridement Subcutaneous -Post Debridement Size (cm) - Length 4.6 -Post Debridement Size (cm) - Width 1.1 -Post Debridement Size (cm) - Depth 0.1 -Total Square Cm 5.06 -Wound/Ulcer Outcome Not Healed -Ulcer Cleansing Rinsed/ Irrigated with Saline -Bioengineered Tissue No -Bleeding Controlled with Pressure -Offloading No -Treatment Response Procedure Tolerated Well [See Physician Procedure note for Specifics] Pain Scale: 0-10 Numeric [Pain] -Is Patient Pain Free? Yes Debridement Note Post-Debridement Measurements/Treatment - Nurse 2 - General Ulcer CM Notes Start: 08/03/18 08:13 Freq: Status: Active Protocol: Activity Type Activity Date Activity User E-Sign Co-Sign Detail Recorded Client Recorded Date Recorded By Document 08/03/18 08:29 [id number] 08/03/18 08:36 Document 08/10/18 08:33 [id number] 08/10/18 08:34 Document 08/17/18 08:56 [id number] 08/17/18 08:58 08/03/18 08/10/18 08/17/18 08:29 08:33 08:56 Wound Center Nurse 2 #1 Sacral -Time 08:30 08:33 08:56 -Correct Patient Yes Yes Yes -Correct Side, Site, Position Yes Yes Yes -Correct Procedure Yes Yes Yes -Procedure Performed Yes Yes Yes -Type of Procedure Debridement Debridement Debridement -Clinical Debridement Subcutaneous Subcutaneous Subcutaneous -Post Debridement Size (cm) - Length 5.4 4.5 4.6 -Post Debridement Size (cm) - Width 1.1 1.5 1.1 -Post Debridement Size (cm) - Depth 0.4 2.5 0.1 -Total Square Cm 5.94 6.75 5.06 -Wound/Ulcer Outcome Not Healed Not Healed Not Healed -Ulcer Cleansing Rinsed/ Rinsed/ Irrigated with Irrigated with Saline Saline -Foul Odor after Cleansing No No -Bioengineered Tissue No No No -Bleeding Controlled with Pressure Pressure Pressure -Offloading No No No -Treatment Response Procedure Procedure Procedure Tolerated Well Tolerated Well Tolerated Well Pain Scale: 0-10 Numeric Is Patient Pain Free? Yes Yes Yes Wound debrided: #1 Sacral area. Laterality: Not Applicable Wound Grade/Stage: 3. Type of Debridement: Excisional debridement Anesthesia Used: 4% Lidocaine Solution Depth: Down to and including healthy tissue, in the subcutaneous layer Percentage of wound debrided: 100 Instrument Used: 3mm curette Tissue Removed: subcutaneous tissue. Severity: Fat Layer Exposed Amount of bleeding with debridement: Mild Bleeding Controlled with: Pressure Patient tolerated procedure well Assessment/Plan Assessment: 1. Nonhealing ulcer sacral area. 2. Painful recurrent complicated extensive pilonidal cyst with draining sinus with extension to muscular anal sphincter. 3. Former smoker. 4. s/p excision painful recurrent complicated extensive pilonidal cyst with draining sinus with extension to muscular anal sphincter. Plan: Continue SNAP VAC to be changed twice a week. Will add the Santyl later this week. A wound culture from 08/03/18 showed MRSE. He was started on Doxycycline. The most inferior aspect of the ulcer has a little more depth than the rest of the healing ulcer and has seemed to plateau and not decreasing as fast as I would like at this time. Discussed with the family the importance of making sure this little depth area inferiorly was being packed completely with the Silver. Otherwise there is the risk that healing may occur over this small pocket and increase chance of recurrent drainage issues that may necessitate additional surgery. They voiced understanding. He has finished the Cleocin for operative culture that showed Streptococcus mitis/oralis, Bacteroides vulgatus, Fusibacterium nucleatum, Eggerthella lenta, and Propionibacterium propionicum. Prealbumin from 04/10/18 was 22.9. Encourage nutritional supplementation with protein to help the healing process. Renewed his Dilaudid for pain (30 tabs). He has returned to work and is doing ok. Followup one week. Discussed with the patient that if healing stops and it appears that more surgery may be warranted, he would need to be evaluated at a tertiary center with Colorectal Surgery because of the extension of the previous surgical excision in 04/19 to the muscular anal sphincter. He voices understanding. Hopefully the antibiotics and the change in wound care to the SNAP VAC and later this week the Santyl will help jump start the healing process so no further surgery is needed.
[2018-08-20 13:00] VITALS: BP 160/84; PULSE 73; RESP 16; TEMP 37.1; BMI 35.0
[2018-08-25 15:35] VITALS: BP 131/88; PULSE 88; RESP 18; TEMP 37.2; BMI 35.0
--- NOTE | 2018-08-25 16:18 | PCM.WC.PN ---
(1) Non-pressure chronic ulcer of skin of other sites with muscle involvement without evidence of necrosis Status: Chronic Current Visit: Yes Code(s): L98.495 - Non-pressure chronic ulcer of skin of other sites with muscle involvement without evidence of necrosis Comment: nonhealing ulcer sacral area (2) Pilonidal sinus without abscess Status: Chronic Current Visit: Yes Code(s): L05.92 - Pilonidal sinus without abscess Comment: recurrent painful complicated extensive pilonidal sinus (3) Former smoker Status: Chronic Current Visit: Yes Code(s): Z87.891 - Personal history of nicotine dependence Type of Wound Date of Service: 08/25/18 Chief Complaint: Nonhealing ulcer sacral area. History of Wound: Surgery 04/09/18 - Excision painful recurrent complicated extensive pilonidal cyst with draining sinus with extension to muscular anal sphincter. Wound care - Discontinue SNAP VAC and Santyl and start wound VAC at 150 mmHg. Operative culture - Streptococcus mitis/oralis, Bacteroides vulgatus, Fusobacterium nucleatum, Eggerthella lenta, and Propionibacterium propionicum. He was treated initially with Doxycycline. He was switched to Cleocin and has finished them. Due to the slowness in healing, another wound culture was obtained on 08/03/18. It showed MRSE and he was started on Doxycycline. Prealbumin from 04/10/18 was 22.9. Encourage nutritional supplementation with protein to help the healing process. He has returned to work and is doing ok. Progress of Wound: Stable. - Physical Exam Vital Signs Temp Pulse Resp BP 98.9 F 88 18 131/88 H 08/25/18 15:35 08/25/18 15:35 08/25/18 15:35 08/25/18 15:35 General: Alert, Oriented x3, Cooperative HEENT: Atraumatic Oral: Moist Mucosa Lungs: Normal air movement Cardiovascular: Regular rate Skin: Ulcer/ Wound - Pilonidal/sacral area Wound Measurements and Assessment WC - Nurse 1 - General Ulcer Measurement Start: 08/03/18 08:13 Freq: Status: Active Protocol: Activity Type Activity Date Activity User E-Sign Co-Sign Detail Recorded Client Recorded Date Recorded By Document 08/25/18 15:35 AN [id number] 08/25/18 15:51 AN 08/25/18 15:35 Wound Center Nurse 1 [Ulcer Assessment] #1 Sacral -Current Size (cm) - Length 3.8 -Current Size (cm) - Width 0.4 -Current Size (cm) - Depth 0.7 -Total Square Cm 1.52 -Tunneling Yes -Tunneling Position (O'clock) 6 -Tunneling Distance (cm) 4.7 -Circular Undermining No -Classification - Thickness Full Thickness without Exposed Support Structure -Exudate Amt Small -Exudate Type Serosanguineous -Wound Margin Distinct, Outline Attached -Granulation Quality Pale [place] -Texture (Rayna-wound Skin Appearance) Scarring -Moisture (Rayna-wound Skin Appearance Maceration ) -Color (Rayna-wound Skin Appearance) Erythema -Temperature (Rayna-wound Skin No Abnormality Appearance) (Pt Warm) -Tenderness on Palpation (Rayna-wound Yes Skin Appearance) -Ulcer Cleansing Rinsed/ Irrigated with Saline -Foul Odor after Cleansing No -Anesthetic Used 4% Lidocaine Solution WC - Nurse 2 - General Ulcer CM Notes Start: 08/03/18 08:13 Freq: Status: Active Protocol: Activity Type Activity Date Activity User E-Sign Co-Sign Detail Recorded Client Recorded Date Recorded By Document 08/25/18 15:54 [id number] 08/25/18 15:59 08/25/18 15:54 Wound Center Nurse 2 [Procedure/Treatment] -Time 15:55 -Correct Patient Yes -Correct Side, Site, Position Yes -Correct Procedure Yes -Procedure Performed Yes -Type of Procedure Debridement -Clinical Debridement Subcutaneous -Post Debridement Size (cm) - Length 3.8 -Post Debridement Size (cm) - Width 0.5 -Post Debridement Size (cm) - Depth 2.5 -Total Square Cm 1.90 -Wound/Ulcer Outcome Not Healed -Ulcer Cleansing Rinsed/ Irrigated with Saline -Foul Odor after Cleansing No -Bioengineered Tissue No -Bleeding Controlled with Pressure -Offloading No -Treatment Response Procedure Tolerated Well [See Physician Procedure note for Specifics] Pain Scale: 0-10 Numeric [Pain] -Is Patient Pain Free? Yes Musculoskeletal: No Tenderness to Palpation of Joints or Extremities Neurological: Neuro grossly intact Psych/Mental Status: Normal Affect, Appropriate Debridement Note Post-Debridement Measurements/Treatment WC - Nurse 2 - General Ulcer CM Notes Start: 08/03/18 08:13 Freq: Status: Active Protocol: Activity Type Activity Date Activity User E-Sign Co-Sign Detail Recorded Client Recorded Date Recorded By Document 08/03/18 08:29 [email or web address] [id number] 08/03/18 08:36 Document 08/10/18 08:33 [email or web address] [id number] 08/10/18 08:34 Document 08/17/18 08:56 [email or web address] [id number] 08/17/18 08:58 Document 08/25/18 15:54 [id number] 08/25/18 15:59 08/03/18 08/10/18 08/17/18 08:29 08:33 08:56 Wound Center Nurse 2 #1 Sacral -Time 08:30 08:33 08:56 -Correct Patient Yes Yes Yes -Correct Side, Site, Position Yes Yes Yes -Correct Procedure Yes Yes Yes -Procedure Performed Yes Yes Yes -Type of Procedure Debridement Debridement Debridement -Clinical Debridement Subcutaneous Subcutaneous Subcutaneous -Post Debridement Size (cm) - Length 5.4 4.5 4.6 -Post Debridement Size (cm) - Width 1.1 1.5 1.1 -Post Debridement Size (cm) - Depth 0.4 2.5 0.1 -Total Square Cm 5.94 6.75 5.06 -Wound/Ulcer Outcome Not Healed Not Healed Not Healed -Ulcer Cleansing Rinsed/ Rinsed/ Irrigated with Irrigated with Saline Saline -Foul Odor after Cleansing No No -Bioengineered Tissue No No No -Bleeding Controlled with Pressure Pressure Pressure -Offloading No No No -Treatment Response Procedure Procedure Procedure Tolerated Well Tolerated Well Tolerated Well Pain Scale: 0-10 Numeric Is Patient Pain Free? Yes Yes Yes 08/25/18 15:54 Wound Center Nurse 2 #1 Sacral -Time 15:55 -Correct Patient Yes -Correct Side, Site, Position Yes -Correct Procedure Yes -Procedure Performed Yes -Type of Procedure Debridement -Clinical Debridement Subcutaneous -Post Debridement Size (cm) - Length 3.8 -Post Debridement Size (cm) - Width 0.5 -Post Debridement Size (cm) - Depth 2.5 -Total Square Cm 1.90 -Wound/Ulcer Outcome Not Healed -Ulcer Cleansing Rinsed/ Irrigated with Saline -Foul Odor after Cleansing No -Bioengineered Tissue No -Bleeding Controlled with Pressure -Offloading No -Treatment Response Procedure Tolerated Well Pain Scale: 0-10 Numeric Is Patient Pain Free? Yes Wound debrided: Pilonidal/sacrum Laterality: Not Applicable Type of Debridement: Excisional debridement Anesthesia Used: 5% Lidocaine Gel Depth: Down to and including healthy tissue, in the subcutaneous layer Percentage of wound debrided: 100 Instrument Used: 5mm curette Tissue Removed: Subcutaneous tissue and slough Severity: Fat Layer Exposed Amount of bleeding with debridement: Mild Bleeding Controlled with: Pressure Patient tolerated procedure well Assessment/Plan Active Problems (Last Updated 02/17/18 @ 15:52 by Viktoriya Cameron) Non-pressure chronic ulcer of skin of other sites with muscle involvement without evidence of necrosis (Chronic) nonhealing ulcer sacral area Former smoker (Chronic) Pilonidal sinus without abscess (Chronic) recurrent painful complicated extensive pilonidal sinus Assessment: 1. Nonhealing ulcer sacral area. 2. Painful recurrent complicated extensive pilonidal cyst with draining sinus with extension to muscular anal sphincter. 3. Former smoker. 4. s/p excision painful recurrent complicated extensive pilonidal cyst with draining sinus with extension to muscular anal sphincter. Plan: Will stop the SNAP and the Santyl. Will order wound VAC at 150 mmHg, instructed to place black foam into tunneling to help wick drainage out. His daughter will apply it after it is delivered. Until then he can do aquacel silver dressing with a wick in the tunnel area. A wound culture from 08/03/18 showed MRSE. He was started on Doxycycline. The most inferior aspect of the ulcer has a little more depth than the rest of the healing ulcer and has seemed to plateau and not decreasing as fast as I would like at this time. Discussed with the family the importance of making sure this little depth area inferiorly was being packed completely with the Silver. Otherwise there is the risk that healing may occur over this small pocket and increase chance of recurrent drainage issues that may necessitate additional surgery. They voiced understanding. He has finished the Cleocin for operative culture that showed Streptococcus mitis/oralis, Bacteroides vulgatus, Fusibacterium nucleatum, Eggerthella lenta, and Propionibacterium propionicum. Prealbumin from 04/10/18 was 22.9. Encourage nutritional supplementation with protein to help the healing process. He has returned to work and is doing ok. Followup one week. Discussed with the patient that if healing stops and it appears that more surgery may be warranted, he would need to be evaluated at a tertiary center with Colorectal Surgery because of the extension of the previous surgical excision in 04/19 to the muscular anal sphincter. He voices understanding. Patient is hoping no further surgery is needed. Code Visit [id number]: [id number] Milvia subq tissue 20 sq cm/<
--- NOTE | 2018-08-25 16:24 | PN.PCM_ITS ---
(1) Non-pressure chronic ulcer of skin of other sites with muscle involvement without evidence of necrosis Status: Chronic Current Visit: Yes Code(s): L98.495 - Non-pressure chronic ulcer of skin of other sites with muscle involvement without evidence of necrosis Comment: nonhealing ulcer sacral area (2) Pilonidal sinus without abscess Status: Chronic Current Visit: Yes Code(s): L05.92 - Pilonidal sinus without abscess Comment: recurrent painful complicated extensive pilonidal sinus (3) Former smoker Status: Chronic Current Visit: Yes Code(s): Z87.891 - Personal history of nicotine dependence Type of Wound Date of Service: 08/25/18 Chief Complaint: Nonhealing ulcer sacral area. History of Wound: Surgery 04/09/18 - Excision painful recurrent complicated extensive pilonidal cyst with draining sinus with extension to muscular anal sphincter. Wound care - Discontinue SNAP VAC and Santyl and start wound VAC at 150 mmHg. Operative culture - Streptococcus mitis/oralis, Bacteroides vulgatus, Fusobacterium nucleatum, Eggerthella lenta, and Propionibacterium propionicum. He was treated initially with Doxycycline. He was switched to Cleocin and has finished them. Due to the slowness in healing, another wound culture was obtained on 08/03/18. It showed MRSE and he was started on Doxycycline. Prealbumin from 04/10/18 was 22.9. Encourage nutritional supplementation with protein to help the healing process. He has returned to work and is doing ok. Progress of Wound: Stable. - Physical Exam Vital Signs Temp Pulse Resp BP 98.9 F 88 18 131/88 H 08/25/18 15:35 08/25/18 15:35 08/25/18 15:35 08/25/18 15:35 General: Alert, Oriented x3, Cooperative HEENT: Atraumatic Oral: Moist Mucosa Lungs: Normal air movement Cardiovascular: Regular rate Skin: Ulcer/ Wound - Pilonidal/sacral area Wound Measurements and Assessment WC - Nurse 1 - General Ulcer Measurement Start: 08/03/18 08:13 Freq: Status: Active Protocol: Activity Type Activity Date Activity User E-Sign Co-Sign Detail Recorded Client Recorded Date Recorded By Document 08/25/18 15:35 AN [id number] 08/25/18 15:51 AN 08/25/18 15:35 Wound Center Nurse 1 [Ulcer Assessment] #1 Sacral -Current Size (cm) - Length 3.8 -Current Size (cm) - Width 0.4 -Current Size (cm) - Depth 0.7 -Total Square Cm 1.52 -Tunneling Yes -Tunneling Position (O'clock) 6 -Tunneling Distance (cm) 4.7 -Circular Undermining No -Classification - Thickness Full Thickness without Exposed Support Structure -Exudate Amt Small -Exudate Type Serosanguineous -Wound Margin Distinct, Outline Attached -Granulation Quality Pale [place] -Texture (Rayna-wound Skin Appearance) Scarring -Moisture (Rayna-wound Skin Appearance Maceration ) -Color (Rayna-wound Skin Appearance) Erythema -Temperature (Rayna-wound Skin No Abnormality Appearance) (Pt Warm) -Tenderness on Palpation (Rayna-wound Yes Skin Appearance) -Ulcer Cleansing Rinsed/ Irrigated with Saline -Foul Odor after Cleansing No -Anesthetic Used 4% Lidocaine Solution WC - Nurse 2 - General Ulcer CM Notes Start: 08/03/18 08:13 Freq: Status: Active Protocol: Activity Type Activity Date Activity User E-Sign Co-Sign Detail Recorded Client Recorded Date Recorded By Document 08/25/18 15:54 [id number] 08/25/18 15:59 08/25/18 15:54 Wound Center Nurse 2 [Procedure/Treatment] -Time 15:55 -Correct Patient Yes -Correct Side, Site, Position Yes -Correct Procedure Yes -Procedure Performed Yes -Type of Procedure Debridement -Clinical Debridement Subcutaneous -Post Debridement Size (cm) - Length 3.8 -Post Debridement Size (cm) - Width 0.5 -Post Debridement Size (cm) - Depth 2.5 -Total Square Cm 1.90 -Wound/Ulcer Outcome Not Healed -Ulcer Cleansing Rinsed/ Irrigated with Saline -Foul Odor after Cleansing No -Bioengineered Tissue No -Bleeding Controlled with Pressure -Offloading No -Treatment Response Procedure Tolerated Well [See Physician Procedure note for Specifics] Pain Scale: 0-10 Numeric [Pain] -Is Patient Pain Free? Yes Musculoskeletal: No Tenderness to Palpation of Joints or Extremities Neurological: Neuro grossly intact Psych/Mental Status: Normal Affect, Appropriate Debridement Note Post-Debridement Measurements/Treatment WC - Nurse 2 - General Ulcer CM Notes Start: 08/03/18 08:13 Freq: Status: Active Protocol: Activity Type Activity Date Activity User E-Sign Co-Sign Detail Recorded Client Recorded Date Recorded By Document 08/03/18 08:29 HERBERT [id number] 08/03/18 08:36 Document 08/10/18 08:33 HERBERT [id number] 08/10/18 08:34 Document 08/17/18 08:56 HERBERT [id number] 08/17/18 08:58 Document 08/25/18 15:54 [id number] 08/25/18 15:59 08/03/18 08/10/18 08/17/18 08:29 08:33 08:56 Wound Center Nurse 2 #1 Sacral -Time 08:30 08:33 08:56 -Correct Patient Yes Yes Yes -Correct Side, Site, Position Yes Yes Yes -Correct Procedure Yes Yes Yes -Procedure Performed Yes Yes Yes -Type of Procedure Debridement Debridement Debridement -Clinical Debridement Subcutaneous Subcutaneous Subcutaneous -Post Debridement Size (cm) - Length 5.4 4.5 4.6 -Post Debridement Size (cm) - Width 1.1 1.5 1.1 -Post Debridement Size (cm) - Depth 0.4 2.5 0.1 -Total Square Cm 5.94 6.75 5.06 -Wound/Ulcer Outcome Not Healed Not Healed Not Healed -Ulcer Cleansing Rinsed/ Rinsed/ Irrigated with Irrigated with Saline Saline -Foul Odor after Cleansing No No -Bioengineered Tissue No No No -Bleeding Controlled with Pressure Pressure Pressure -Offloading No No No -Treatment Response Procedure Procedure Procedure Tolerated Well Tolerated Well Tolerated Well Pain Scale: 0-10 Numeric Is Patient Pain Free? Yes Yes Yes 08/25/18 15:54 Wound Center Nurse 2 #1 Sacral -Time 15:55 -Correct Patient Yes -Correct Side, Site, Position Yes -Correct Procedure Yes -Procedure Performed Yes -Type of Procedure Debridement -Clinical Debridement Subcutaneous -Post Debridement Size (cm) - Length 3.8 -Post Debridement Size (cm) - Width 0.5 -Post Debridement Size (cm) - Depth 2.5 -Total Square Cm 1.90 -Wound/Ulcer Outcome Not Healed -Ulcer Cleansing Rinsed/ Irrigated with Saline -Foul Odor after Cleansing No -Bioengineered Tissue No -Bleeding Controlled with Pressure -Offloading No -Treatment Response Procedure Tolerated Well Pain Scale: 0-10 Numeric Is Patient Pain Free? Yes Wound debrided: Pilonidal/sacrum Laterality: Not Applicable Type of Debridement: Excisional debridement Anesthesia Used: 5% Lidocaine Gel Depth: Down to and including healthy tissue, in the subcutaneous layer Percentage of wound debrided: 100 Instrument Used: 5mm curette Tissue Removed: Subcutaneous tissue and slough Severity: Fat Layer Exposed Amount of bleeding with debridement: Mild Bleeding Controlled with: Pressure Patient tolerated procedure well Assessment/Plan Active Problems (Last Updated 02/17/18 @ 15:52 by Viktoriya Cameron) Non-pressure chronic ulcer of skin of other sites with muscle involvement without evidence of necrosis (Chronic) nonhealing ulcer sacral area Former smoker (Chronic) Pilonidal sinus without abscess (Chronic) recurrent painful complicated extensive pilonidal sinus Assessment: 1. Nonhealing ulcer sacral area. 2. Painful recurrent complicated extensive pilonidal cyst with draining sinus with extension to muscular anal sphincter. 3. Former smoker. 4. s/p excision painful recurrent complicated extensive pilonidal cyst with draining sinus with extension to muscular anal sphincter. Plan: Will stop the SNAP and the Santyl. Will order wound VAC at 150 mmHg, instructed to place black foam into tunneling to help wick drainage out. His daughter will apply it after it is delivered. Until then he can do aquacel silver dressing with a wick in the tunnel area. A wound culture from 08/03/18 showed MRSE. He was started on Doxycycline. The most inferior aspect of the ulcer has a little more depth than the rest of the healing ulcer and has seemed to plateau and not decreasing as fast as I would like at this time. Discussed with the family the importance of making sure this little depth area inferiorly was being packed completely with the Silver. Otherwise there is the risk that healing may occur over this small pocket and increase chance of recurrent drainage issues that may necessitate additional surgery. They voiced understanding. He has finished the Cleocin for operative culture that showed Streptococcus mitis/oralis, Bacteroides vulgatus, Fusibacterium nucleatum, Eggerthella lenta, and Propionibacterium propionicum. Prealbumin from 04/10/18 was 22.9. Encourage nutritional supplementation with protein to help the healing process. He has returned to work and is doing ok. Followup one week. Discussed with the patient that if healing stops and it appears that more surgery may be warranted, he would need to be evaluated at a tertiary center with Colorectal Surgery because of the extension of the previous surgical excision in 04/19 to the muscular anal sphincter. He voices understanding. Patient is hoping no further surgery is needed. Code Visit 111xxx-113xx: 77525 Milvia subq tissue 20 sq cm/<
== END 2018-08-30 23:59 ==
LOC: WC 15:00
PROVIDERS: Family Provider Family Medicine; PCP Family Medicine; Visit Provider Surgery
DX: L05.91 Pilonidal cyst without abscess (principal); L98.422 Non-pressure chronic ulcer of back with fat layer exposed; Z87.891 Personal history of nicotine dependence
CPT/HCPCS: 11042; 87070; 87075; 87077; 87186; 87205; 97607; 99212; G0463

== ENCOUNTER 2018-09-28 10:15 | Outpatient (RCR) | payer BC, SELFPAY ==
[2018-08-31 00:57] VITALS: BP 131/88; PULSE 88; RESP 18; TEMP 37.2
[2018-09-01 13:35] VITALS: BP 136/86; PULSE 81; RESP 18; TEMP 37.1; BMI 35.0
--- NOTE | 2018-09-01 14:35 | PCM.WC.PN ---
(1) Non-pressure chronic ulcer of skin of other sites with muscle involvement without evidence of necrosis Status: Chronic Current Visit: Yes Code(s): L98.495 - Non-pressure chronic ulcer of skin of other sites with muscle involvement without evidence of necrosis Comment: nonhealing ulcer sacral area (2) Pilonidal sinus without abscess Status: Chronic Current Visit: Yes Code(s): L05.92 - Pilonidal sinus without abscess Comment: recurrent painful complicated extensive pilonidal sinus Type of Wound Date of Service: 09/01/18 Chief Complaint: Nonhealing ulcer sacral area. History of Wound: Surgery 04/09/18 - Excision painful recurrent complicated extensive pilonidal cyst with draining sinus with extension to muscular anal sphincter. Wound care - Discontinue SNAP VAC and Santyl and start wound VAC at 150 mmHg. Operative culture - Streptococcus mitis/oralis, Bacteroides vulgatus, Fusobacterium nucleatum, Eggerthella lenta, and Propionibacterium propionicum. He was treated initially with Doxycycline. He was switched to Cleocin and has finished them. Due to the slowness in healing, another wound culture was obtained on 08/03/18. It showed MRSE and he was started on Doxycycline. Prealbumin from 04/10/18 was 22.9. Encourage nutritional supplementation with protein to help the healing process. He has returned to work and is doing ok. Progress of Wound: Stable. - Physical Exam Vital Signs Temp Pulse Resp BP 98.7 F 81 18 136/86 H 09/01/18 13:35 09/01/18 13:35 09/01/18 13:35 09/01/18 13:35 General: Alert, Oriented x3, Cooperative HEENT: Atraumatic Oral: Moist Mucosa Lungs: Normal air movement Cardiovascular: Regular rate Extremities: No edema, Capillary Refill Less than 3 Seconds Skin: Ulcer/ Wound - pilonidal ulcer Wound Measurements and Assessment WC - Nurse 1 - General Ulcer Measurement Start: 09/01/18 13:35 Freq: Status: Active Protocol: Activity Type Activity Date Activity User E-Sign Co-Sign Detail Recorded Client Recorded Date Recorded By Document 09/01/18 13:35 MW [id number] 09/01/18 13:44 MW 09/01/18 13:35 Wound Center Nurse 1 [Ulcer Assessment] #1 Sacral -Current Size (cm) - Length 4.0 -Current Size (cm) - Width 0.5 -Current Size (cm) - Depth 1.3 -Total Square Cm 2.00 -Date of Last Picture (Recall this 09/01/18 field) -Photo Taken Yes -Epithelialization Small 1-33% -Tunneling No -Undermining/Tunneling No -Circular Undermining No -Exudate Amt Small -Exudate Type Serous -Wound Margin Indistinct, Non -Visible -Granulation Amt Medium (34-66%) -Granulation Quality [place] -Slough/Fibrin Yes -Necrosis Amt Small (1-33%) -Necrotic Tissue Type Eschar -Structure Exposed N/A -Texture (Rayna-wound Skin Appearance) Assessed Scarring -Moisture (Rayna-wound Skin Appearance No Abnormality ) Assessed -Color (Rayna-wound Skin Appearance) No Abnormality Assessed -Temperature (Rayna-wound Skin No Abnormality Appearance) (Pt Warm) -Tenderness on Palpation (Rayna-wound No Skin Appearance) -Ulcer Cleansing soap and water -Foul Odor after Cleansing No -Anesthetic Used 5% Lidocaine Gel [Edema Assessment] -Lower Limb Edema Present No WC - Nurse 2 - General Ulcer CM Notes Start: 09/01/18 13:35 Freq: Status: Active Protocol: Activity Type Activity Date Activity User E-Sign Co-Sign Detail Recorded Client Recorded Date Recorded By Document 09/01/18 13:55 [id number] 09/01/18 13:57 09/01/18 13:55 Wound Center Nurse 2 [Procedure/Treatment] #1 Sacral -Time 13:55 -Correct Patient Yes -Correct Side, Site, Position Yes -Correct Procedure Yes -Procedure Performed Yes -Type of Procedure Debridement -Clinical Debridement Subcutaneous -Post Debridement Size (cm) - Length 3.0 -Post Debridement Size (cm) - Width 0.5 -Post Debridement Size (cm) - Depth 0.5 -Total Square Cm 1.50 -Wound/Ulcer Outcome Not Healed -Ulcer Cleansing Rinsed/ Irrigated with Saline -Foul Odor after Cleansing No -Bioengineered Tissue No -Bleeding Controlled with Pressure -Other tunnel at 6:00- -1.3cm -Offloading No -Treatment Response Procedure Tolerated Well [See Physician Procedure note for Specifics] Pain Scale: 0-10 Numeric [Pain] -Is Patient Pain Free? Yes Musculoskeletal: No Tenderness to Palpation of Joints or Extremities Neurological: Neuro grossly intact Psych/Mental Status: Normal Affect, Appropriate Debridement Note Post-Debridement Measurements/Treatment WC - Nurse 2 - General Ulcer CM Notes Start: 09/01/18 13:35 Freq: Status: Active Protocol: Activity Type Activity Date Activity User E-Sign Co-Sign Detail Recorded Client Recorded Date Recorded By Document 09/01/18 13:55 [id number] 09/01/18 13:57 HERBERT 09/01/18 13:55 Wound Center Nurse 2 #1 Sacral -Time 13:55 -Correct Patient Yes -Correct Side, Site, Position Yes -Correct Procedure Yes -Procedure Performed Yes -Type of Procedure Debridement -Clinical Debridement Subcutaneous -Post Debridement Size (cm) - Length 3.0 -Post Debridement Size (cm) - Width 0.5 -Post Debridement Size (cm) - Depth 0.5 -Total Square Cm 1.50 -Wound/Ulcer Outcome Not Healed -Ulcer Cleansing Rinsed/ Irrigated with Saline -Foul Odor after Cleansing No -Bioengineered Tissue No -Bleeding Controlled with Pressure -Other tunnel at 6:00- -1.3cm -Offloading No -Treatment Response Procedure Tolerated Well Pain Scale: 0-10 Numeric Is Patient Pain Free? Yes Wound debrided: pilonidal ulcer Laterality: Not Applicable Type of Debridement: Excisional debridement Anesthesia Used: 5% Lidocaine Gel Depth: Down to and including healthy tissue, in the subcutaneous layer Percentage of wound debrided: 100 Instrument Used: 5mm curette Tissue Removed: Subcutaneous tissue and slough Severity: Fat Layer Exposed Amount of bleeding with debridement: Mild Bleeding Controlled with: Pressure Patient tolerated procedure well Assessment/Plan Active Problems (Last Updated 02/17/18 @ 15:52 by Viktoriya Cameron) Non-pressure chronic ulcer of skin of other sites with muscle involvement without evidence of necrosis (Chronic) nonhealing ulcer sacral area Pilonidal sinus without abscess (Chronic) recurrent painful complicated extensive pilonidal sinus Assessment: 1. Nonhealing ulcer sacral area. 2. Painful recurrent complicated extensive pilonidal cyst with draining sinus with extension to muscular anal sphincter. 3. Former smoker. 4. s/p excision painful recurrent complicated extensive pilonidal cyst with draining sinus with extension to muscular anal sphincter. Plan: Started wound VAC at 150 mmHg three days ago. Instructed to place black foam into tunneling to help wick drainage out. His daughter is doing his wound vac dressing changes. A wound culture from 08/03/18 showed [id number]. He was started on Doxycycline. The most inferior aspect of the ulcer has a little more depth than the rest of the healing ulcer and has started decreasing slightly. Discussed with the family the importance of making sure this little depth area inferiorly was being packed completely with the Silver. Otherwise there is the risk that healing may occur over this small pocket and increase chance of recurrent drainage issues that may necessitate additional surgery. They voiced understanding. He has finished the Cleocin for operative culture that showed Streptococcus mitis/oralis, Bacteroides vulgatus, Fusibacterium nucleatum, Eggerthella lenta, and Propionibacterium propionicum. Prealbumin from 04/10/18 was 22.9. Encourage nutritional supplementation with protein to help the healing process. He has returned to work and is doing ok. Followup one week. Discussed with the patient that if healing stops and it appears that more surgery may be warranted, he would need to be evaluated at a tertiary center with Colorectal Surgery because of the extension of the previous surgical excision in 04/19 to the muscular anal sphincter. He voices understanding. Patient is hoping no further surgery is needed. He is having increase in pain with the wound vac dressing changes. Discussed this with Dr. Melendez and reviewed his [facility] report. Dr. Melendez wrote for Dilaudid (#30) and Valium (#20). Code Visit 111xxx-113xx: 13297 Milvia subq tissue 20 sq cm/<
[2018-09-08 13:17] VITALS: BP 151/78; PULSE 78; RESP 16; TEMP 36.9; BMI 35.0
--- NOTE | 2018-09-08 15:59 | PCM.WC.PN ---
(1) Non-pressure chronic ulcer of skin of other sites with muscle involvement without evidence of necrosis Status: Chronic Current Visit: Yes Code(s): L98.495 - Non-pressure chronic ulcer of skin of other sites with muscle involvement without evidence of necrosis Comment: nonhealing ulcer sacral area (2) Pilonidal sinus without abscess Status: Chronic Current Visit: Yes Code(s): L05.92 - Pilonidal sinus without abscess Comment: recurrent painful complicated extensive pilonidal sinus Type of Wound Date of Service: 09/07/18 Chief Complaint: Nonhealing ulcer sacral area. History of Wound: Surgery 04/09/18 - Excision painful recurrent complicated extensive pilonidal cyst with draining sinus with extension to muscular anal sphincter. Wound care - Discontinue SNAP VAC and Santyl and start wound VAC at 150 mmHg. Operative culture - Streptococcus mitis/oralis, Bacteroides vulgatus, Fusobacterium nucleatum, Eggerthella lenta, and Propionibacterium propionicum. He was treated initially with Doxycycline. He was switched to Cleocin and has finished them. Due to the slowness in healing, another wound culture was obtained on 08/03/18. It showed MRSE and he was started on Doxycycline. Prealbumin from 04/10/18 was 22.9. Encourage nutritional supplementation with protein to help the healing process. He has returned to work and is doing ok. Progress of Wound: Stable. - Physical Exam Vital Signs Temp Pulse Resp BP 98.4 F 78 16 151/78 H 09/08/18 13:17 09/08/18 13:17 09/08/18 13:17 09/08/18 13:17 General: Alert, Oriented x3, Cooperative HEENT: Atraumatic Oral: Moist Mucosa Lungs: Normal air movement Cardiovascular: Regular rate Extremities: No edema, Capillary Refill Less than 3 Seconds Skin: Ulcer/ Wound - pilonidal ulcer with tunneling Wound Measurements and Assessment WC - Nurse 1 - General Ulcer Measurement Start: 09/01/18 13:35 Freq: Status: Active Protocol: Activity Type Activity Date Activity User E-Sign Co-Sign Detail Recorded Client Recorded Date Recorded By Document 09/08/18 13:17 [facility] [id number] 09/08/18 13:27 [facility] 09/08/18 13:17 Wound Center Nurse 1 [Ulcer Assessment] #1 Sacral -Combined with other wound No -Current Size (cm) - Length 4 -Current Size (cm) - Width 0.2 -Current Size (cm) - Depth 0.2 -Total Square Cm 0.8 -Photo Taken No -Epithelialization None Present -Tunneling Yes -Tunneling Position (O'clock) 6 -Tunneling Distance (cm) 0.9 -Undermining/Tunneling No -Circular Undermining No -Exudate Amt Small -Exudate Type Serosanguineous -Wound Margin Distinct, Outline Attached -Granulation Amt Medium (34-66%) -Granulation Quality Red -Slough/Fibrin Yes -Necrosis Amt Small (1-33%) -Necrotic Tissue Type Adherent Slough -Texture (Rayna-wound Skin Appearance) Scarring -Moisture (Rayna-wound Skin Appearance Assessed ) -Color (Rayna-wound Skin Appearance) Assessed -Temperature (Rayna-wound Skin No Abnormality Appearance) (Pt Warm) -Tenderness on Palpation (Rayna-wound No Skin Appearance) -Ulcer Cleansing Wound Cleanser -Foul Odor after Cleansing No -Anesthetic Used 5% Lidocaine Gel WC - Nurse 2 - General Ulcer CM Notes Start: 09/01/18 13:35 Freq: Status: Active Protocol: Activity Type Activity Date Activity User E-Sign Co-Sign Detail Recorded Client Recorded Date Recorded By Document 09/08/18 13:39 HERBERT [id number] 09/08/18 13:40 HERBERT 09/08/18 13:39 Wound Center Nurse 2 [Procedure/Treatment] -Time 13:39 -Correct Patient Yes -Correct Side, Site, Position Yes -Correct Procedure Yes -Procedure Performed Yes -Type of Procedure Debridement -Clinical Debridement Subcutaneous -Post Debridement Size (cm) - Length 2.3 -Post Debridement Size (cm) - Width 0.7 -Post Debridement Size (cm) - Depth 0.3 -Total Square Cm 1.61 -Wound/Ulcer Outcome Not Healed -Ulcer Cleansing Rinsed/ Irrigated with Saline -Foul Odor after Cleansing No -Bioengineered Tissue No -Bleeding Controlled with Pressure -Other tunnel at base of ulcer 1.6cm -Offloading No -Treatment Response Procedure Tolerated Well [See Physician Procedure note for Specifics] Pain Scale: 0-10 Numeric [Pain] -Is Patient Pain Free? Yes Musculoskeletal: No Tenderness to Palpation of Joints or Extremities Neurological: Neuro grossly intact Psych/Mental Status: Normal Affect, Appropriate Debridement Note Post-Debridement Measurements/Treatment - Nurse 2 - General Ulcer CM Notes Start: 09/01/18 13:35 Freq: Status: Active Protocol: Activity Type Activity Date Activity User E-Sign Co-Sign Detail Recorded Client Recorded Date Recorded By Document 09/01/18 13:55 [id number] 09/01/18 13:57 Document 09/08/18 13:39 [id number] 09/08/18 13:40 09/01/18 09/08/18 13:55 13:39 Wound Center Nurse 2 #1 Sacral -Time 13:55 13:39 -Correct Patient Yes Yes -Correct Side, Site, Position Yes Yes -Correct Procedure Yes Yes -Procedure Performed Yes Yes -Type of Procedure Debridement Debridement -Clinical Debridement Subcutaneous Subcutaneous -Post Debridement Size (cm) - Length 3.0 2.3 -Post Debridement Size (cm) - Width 0.5 0.7 -Post Debridement Size (cm) - Depth 0.5 0.3 -Total Square Cm 1.50 1.61 -Wound/Ulcer Outcome Not Healed Not Healed -Ulcer Cleansing Rinsed/ Rinsed/ Irrigated with Irrigated with Saline Saline -Foul Odor after Cleansing No No -Bioengineered Tissue No No -Bleeding Controlled with Pressure Pressure -Other tunnel at 6:00- tunnel at base -1.3cm of ulcer 1.6cm -Offloading No No -Treatment Response Procedure Procedure Tolerated Well Tolerated Well Pain Scale: 0-10 Numeric Is Patient Pain Free? Yes Yes Wound debrided: pilonidal ucler Type of Debridement: Excisional debridement Anesthesia Used: 5% Lidocaine Gel Depth: Down to and including healthy tissue, in the subcutaneous layer Percentage of wound debrided: 100 Instrument Used: 3mm curette Tissue Removed: Subcutaneous tissue and slough Severity: Limited To Skin Breakdown Amount of bleeding with debridement: Mild Bleeding Controlled with: Pressure Patient tolerated procedure well Assessment/Plan Active Problems (Last Updated 02/17/18 @ 15:52 by Viktoriya Cameron) Non-pressure chronic ulcer of skin of other sites with muscle involvement without evidence of necrosis (Chronic) nonhealing ulcer sacral area Pilonidal sinus without abscess (Chronic) recurrent painful complicated extensive pilonidal sinus Assessment: 1. Nonhealing ulcer sacral area. 2. Painful recurrent complicated extensive pilonidal cyst with draining sinus with extension to muscular anal sphincter. 3. Former smoker. 4. s/p excision painful recurrent complicated extensive pilonidal cyst with draining sinus with extension to muscular anal sphincter. Plan: Started wound VAC at [address] black foam into tunneling to help wick drainage out. His daughter is doing his wound vac dressing changes. A wound culture from 08/03/18 showed MRSSil. He was started on Doxycycline. The most inferior aspect of the ulcer has a little more depth than the rest of the healing ulcer and has started decreasing slightly. Discussed with the family the importance of making sure this little depth area inferiorly was being packed completely with the Silver. Otherwise there is the risk that healing may occur over this small pocket and increase chance of recurrent drainage issues that may necessitate additional surgery. They voiced understanding. He has finished the Cleocin for operative culture that showed Streptococcus mitis/oralis, Bacteroides vulgatus, Fusibacterium nucleatum, Eggerthella lenta, and Propionibacterium propionicum. Prealbumin from 04/10/18 was 22.9. Encourage nutritional supplementation with protein to help the healing process. He has returned to work and is doing ok. Followup one week. Discussed with the patient that if healing stops and it appears that more surgery may be warranted, he would need to be evaluated at a tertiary center with Colorectal Surgery because of the extension of the previous surgical excision in 04/19 to the muscular anal sphincter. He voices understanding. Patient is hoping no further surgery is needed. Code Visit 111xxx-113xx: 25330 Milvia subq tissue 20 sq cm/<
[2018-09-14 08:15] VITALS: BP 154/87; PULSE 69; RESP 18; TEMP 36.4; BMI 35.0
--- NOTE | 2018-09-14 12:21 | PCM.WC.PN ---
Type of Wound Date of Service: 09/14/18 Chief Complaint: Nonhealing ulcer sacral area. History of Wound: Surgery 04/09/18 - Excision painful recurrent complicated extensive pilonidal cyst with draining sinus with extension to muscular anal sphincter. Wound care - VAC. Operative culture - Streptococcus mitis/oralis, Bacteroides vulgatus, Fusobacterium nucleatum, Eggerthella lenta, and Propionibacterium propionicum. He was treated initially with Doxycycline. He was switched to Cleocin and has finished them. Due to the slowness in healing, another wound culture was obtained on 08/03/18. It showed MRSE and he was started on Doxycycline. Prealbumin from 04/10/18 was 22.9. Encourage nutritional supplementation with protein to help the healing process. He has returned to work and is doing ok. Progress of Wound: Slowly improving. - Physical Exam Vital Signs Temp Pulse Resp BP 97.5 F L 69 18 154/87 H 09/14/18 08:15 09/14/18 08:15 09/14/18 08:15 09/14/18 08:15 Wound Measurements and Assessment WC - Nurse 1 - General Ulcer Measurement Start: 09/01/18 13:35 Freq: Status: Active Protocol: Activity Type Activity Date Activity User E-Sign Co-Sign Detail Recorded Client Recorded Date Recorded By Document 09/14/18 08:15 MW [id number] 09/14/18 08:24 MW 09/14/18 08:15 Wound Center Nurse 1 [Ulcer Assessment] #1 Sacral -Combined with other wound No -Current Size (cm) - Length 3.0 -Current Size (cm) - Width 0.4 -Current Size (cm) - Depth 0.1 -Total Square Cm 1.20 -Photo Taken No -Epithelialization Small 1-33% -Tunneling Yes -Tunneling Position (O'clock) 6 -Tunneling Distance (cm) 0.9 -Undermining/Tunneling No -Circular Undermining No -Exudate Amt Small -Exudate Type Serosanguineous -Wound Margin Indistinct, Non -Visible -Granulation Amt Medium (34-66%) -Granulation Quality [place] -Slough/Fibrin Yes -Necrosis Amt Small (1-33%) -Necrotic Tissue Type Adherent Slough -Structure Exposed N/A -Texture (Rayna-wound Skin Appearance) Assessed Scarring -Moisture (Rayna-wound Skin Appearance No Abnormality ) Assessed -Color (Rayna-wound Skin Appearance) No Abnormality Assessed -Temperature (Rayna-wound Skin No Abnormality Appearance) (Pt Warm) -Tenderness on Palpation (Rayna-wound No Skin Appearance) -Ulcer Cleansing soap and water -Foul Odor after Cleansing No -Anesthetic Used 5% Lidocaine Gel [Edema Assessment] -Lower Limb Edema Present No WC - Nurse 2 - General Ulcer CM Notes Start: 09/01/18 13:35 Freq: Status: Active Protocol: Activity Type Activity Date Activity User E-Sign Co-Sign Detail Recorded Client Recorded Date Recorded By Document 09/14/18 09:12 MW [id number] 09/14/18 09:17 MW 09/14/18 09:12 Wound Center Nurse 2 [Procedure/Treatment] #1 Sacral -Time 09:13 -Correct Patient Yes -Correct Side, Site, Position Yes -Correct Procedure Yes -Procedure Performed Yes -Type of Procedure Debridement -Clinical Debridement Subcutaneous -Post Debridement Size (cm) - Length 3.0 -Post Debridement Size (cm) - Width 0.4 -Post Debridement Size (cm) - Depth 0.1 -Total Square Cm 1.20 -Wound/Ulcer Outcome Not Healed -Ulcer Cleansing Rinsed/ Irrigated with Saline -Foul Odor after Cleansing No -Bioengineered Tissue No -Bleeding Controlled with Pressure -Other tunnel 1.0 -Offloading No -Treatment Response Procedure Tolerated Well [See Physician Procedure note for Specifics] Pain Scale: 0-10 Numeric [Pain] -Is Patient Pain Free? Yes Debridement Note Post-Debridement Measurements/Treatment WC - Nurse 2 - General Ulcer CM Notes Start: 09/01/18 13:35 Freq: Status: Active Protocol: Activity Type Activity Date Activity User E-Sign Co-Sign Detail Recorded Client Recorded Date Recorded By Document 09/01/18 13:55 [id number] 09/01/18 13:57 Document 09/08/18 13:39 [id number] 09/08/18 13:40 Document 09/14/18 09:12 MW [id number] 09/14/18 09:17 MW 09/01/18 09/08/18 09/14/18 13:55 13:39 09:12 Wound Center Nurse 2 #1 Sacral -Time 13:55 13:39 09:13 -Correct Patient Yes Yes Yes -Correct Side, Site, Position Yes Yes Yes -Correct Procedure Yes Yes Yes -Procedure Performed Yes Yes Yes -Type of Procedure Debridement Debridement Debridement -Clinical Debridement Subcutaneous Subcutaneous Subcutaneous -Post Debridement Size (cm) - Length 3.0 2.3 3.0 -Post Debridement Size (cm) - Width 0.5 0.7 0.4 -Post Debridement Size (cm) - Depth 0.5 0.3 0.1 -Total Square Cm 1.50 1.61 1.20 -Wound/Ulcer Outcome Not Healed Not Healed Not Healed -Ulcer Cleansing Rinsed/ Rinsed/ Rinsed/ Irrigated with Irrigated with Irrigated with Saline Saline Saline -Foul Odor after Cleansing No No No -Bioengineered Tissue No No No -Bleeding Controlled with Pressure Pressure Pressure -Other tunnel at 6:00- tunnel at base tunnel 1.0 -1.3cm of ulcer 1.6cm -Offloading No No No -Treatment Response Procedure Procedure Procedure Tolerated Well Tolerated Well Tolerated Well Pain Scale: 0-10 Numeric Is Patient Pain Free? Yes Yes Yes Wound debrided: #1 Sacral area. Laterality: Not Applicable Wound Grade/Stage: 3. Type of Debridement: Excisional debridement Anesthesia Used: 4% Lidocaine Solution Depth: Down to and including healthy tissue, in the subcutaneous layer Percentage of wound debrided: 100 Instrument Used: 3mm curette Tissue Removed: subcutaneous tissue. Severity: Fat Layer Exposed Amount of bleeding with debridement: Mild Bleeding Controlled with: Pressure Patient tolerated procedure well Assessment/Plan Active Problems (Last Updated 02/17/18 @ 15:52 by Viktoriya Cameron) Non-pressure chronic ulcer of skin of other sites with muscle involvement without evidence of necrosis (Chronic) nonhealing ulcer sacral area Pilonidal sinus without abscess (Chronic) recurrent painful complicated extensive pilonidal sinus Assessment: 1. Nonhealing ulcer sacral area. 2. Painful recurrent complicated extensive pilonidal cyst with draining sinus with extension to muscular anal sphincter. 3. Former smoker. 4. s/p excision painful recurrent complicated extensive pilonidal cyst with draining sinus with extension to muscular anal sphincter. Plan: Continue VAC to be changed three times a week. A wound culture from 08/03/18 showed MRSE. He was started on Doxycycline. The most inferior aspect of the ulcer has a little more depth than the rest of the healing ulcer and has started to improve again with the VAC. He has finished the Cleocin for operative culture that showed Streptococcus mitis/oralis, Bacteroides vulgatus, Fusibacterium nucleatum, Eggerthella lenta, and Propionibacterium propionicum. Prealbumin from 04/10/18 was 22.9. Encourage nutritional supplementation with protein to help the healing process. Renewed his Dilaudid for pain (30 tabs). Renewed his Valium for spasm (20 tabs). He has some fungal issues in his groin. Recommended Nystation powder. Wrote script for Diflucan twice a day (28 tabs). He has returned to work and is doing ok. Followup one week. Discussed with the patient that if healing stops and it appears that more surgery may be warranted, he would need to be evaluated at a tertiary center with Colorectal Surgery because of the extension of the previous surgical excision in 04/19 to the muscular anal sphincter. He voices understanding.
[2018-09-22 13:06] VITALS: BP 149/80; PULSE 79; RESP 18; TEMP 36.6; BMI 35.0
--- NOTE | 2018-09-22 17:01 | PN.PCM_ITS ---
(1) Non-pressure chronic ulcer of skin of other sites with muscle involvement without evidence of necrosis Status: Chronic Current Visit: Yes Code(s): L98.495 - Non-pressure chronic ulcer of skin of other sites with muscle involvement without evidence of necrosis Comment: nonhealing ulcer sacral area (2) Pilonidal sinus without abscess Status: Chronic Current Visit: Yes Code(s): L05.92 - Pilonidal sinus without abscess Comment: recurrent painful complicated extensive pilonidal sinus Type of Wound Date of Service: 09/22/18 Chief Complaint: Nonhealing ulcer sacral area. History of Wound: Surgery 04/09/18 - Excision painful recurrent complicated ex tensive pilonidal cyst with draining sinus with extension to muscular anal sphincter. Wound care - VAC. Operative culture - Streptococcus mitis/oralis, Bacteroides vulgatus, Fusobacterium nucleatum, Eggerthella lenta, and Propionibacterium propionicum. He was treated initially with Doxycycline. He was switched to Cleocin and has finished them. Due to the slowness in healing, another wound culture was obtained on 08/03/18. It showed MRSE and he was started on Doxycycline. Prealbumin from 04/10/18 was 22.9. Encourage nutritional supplementation with protein to help the healing process. He has returned to work and is doing ok. Progress of Wound: Slowly improving. - Physical Exam Vital Signs Temp Pulse Resp BP 98 F 79 18 149/80 H 09/22/18 13:06 09/22/18 13:06 09/22/18 13:06 09/22/18 13:06 General: Alert, Oriented x3, Cooperative HEENT: Atraumatic Oral: Moist Mucosa Lungs: Normal air movement Cardiovascular: Regular rate Extremities: No edema Skin: Ulcer/ Wound - pilonidal cyst with tunneling Wound Measurements and Assessment WC - Nurse 1 - General Ulcer Measurement Start: 09/01/18 13:35 Freq: Status: Active Protocol: Activity Type Activity Date Activity User E-Sign Co-Sign Detail Recorded Client Recorded Date Recorded By Document 09/22/18 13:06 DL [id number] 09/22/18 13:13 DL 09/22/18 13:06 Wound Center Nurse 1 [Ulcer Assessment] #1 Sacral -Current Size (cm) - Length 3 -Current Size (cm) - Width 0.1 -Current Size (cm) - Depth 0.1 -Total Square Cm 0.3 -Photo Taken No -Tunneling Position (O'clock) 6 -Tunneling Distance (cm) 0.4 -Exudate Amt Small -Exudate Type Serosanguineous -Wound Margin Flat & Intact -Granulation Amt Large (67-100%) -Granulation Quality [place] -Necrotic Tissue Type Adherent Slough -Structure Exposed N/A -Texture (Rayna-wound Skin Appearance) Scarring -Moisture (Rayna-wound Skin Appearance Maceration ) -Color (Rayna-wound Skin Appearance) No Abnormality -Temperature (Rayna-wound Skin No Abnormality Appearance) (Pt Warm) -Tenderness on Palpation (Rayna-wound No Skin Appearance) -Ulcer Cleansing Wound Cleanser -Foul Odor after Cleansing No -Anesthetic Used 4% Lidocaine Solution WC - Nurse 2 - General Ulcer CM Notes Start: 09/01/18 13:35 Freq: Status: Active Protocol: Activity Type Activity Date Activity User E-Sign Co-Sign Detail Recorded Client Recorded Date Recorded By Document 09/22/18 13:29 HERBERT [id number] 09/22/18 13:30 HERBERT 09/22/18 13:29 Wound Center Nurse 2 [Procedure/Treatment] -Time 13:29 -Correct Patient Yes -Correct Side, Site, Position Yes -Correct Procedure Yes -Procedure Performed Yes -Type of Procedure Debridement -Clinical Debridement Subcutaneous -Post Debridement Size (cm) - Length 1.0 -Post Debridement Size (cm) - Width 0.6 -Post Debridement Size (cm) - Depth 0.1 -Total Square Cm 0.60 -Wound/Ulcer Outcome Not Healed -Ulcer Cleansing Rinsed/ Irrigated with Saline -Foul Odor after Cleansing No -Bioengineered Tissue No -Bleeding Controlled with Pressure -Other tunnel 2.2cm -Offloading No -Treatment Response Procedure Tolerated Well [See Physician Procedure note for Specifics] Pain Scale: 0-10 Numeric [Pain] -Is Patient Pain Free? Yes Musculoskeletal: No Tenderness to Palpation of Joints or Extremities Neurological: Neuro grossly intact Psych/Mental Status: Normal Affect, Appropriate Debridement Note Post-Debridement Measurements/Treatment WC - Nurse 2 - General Ulcer CM Notes Start: 09/01/18 13:35 Freq: Status: Active Protocol: Activity Type Activity Date Activity User E-Sign Co-Sign Detail Recorded Client Recorded Date Recorded By Document 09/01/18 13:55 HERBERT [id number] 09/01/18 13:57 Document 09/08/18 13:39 JF [id number] 09/08/18 13:40 JF Document 09/14/18 09:12 MW [id number] 09/14/18 09:17 MW Document 09/22/18 13:29 JF [id number] 09/22/18 13:30 09/01/18 09/08/18 09/14/18 13:55 13:39 09:12 Wound Center Nurse 2 #1 Sacral -Time 13:55 13:39 09:13 -Correct Patient Yes Yes Yes -Correct Side, Site, Position Yes Yes Yes -Correct Procedure Yes Yes Yes -Procedure Performed Yes Yes Yes -Type of Procedure Debridement Debridement Debridement -Clinical Debridement Subcutaneous Subcutaneous Subcutaneous -Post Debridement Size (cm) - Length 3.0 2.3 3.0 -Post Debridement Size (cm) - Width 0.5 0.7 0.4 -Post Debridement Size (cm) - Depth 0.5 0.3 0.1 -Total Square Cm 1.50 1.61 1.20 -Wound/Ulcer Outcome Not Healed Not Healed Not Healed -Ulcer Cleansing Rinsed/ Rinsed/ Rinsed/ Irrigated with Irrigated with Irrigated with Saline Saline Saline -Foul Odor after Cleansing No No No -Bioengineered Tissue No No No -Bleeding Controlled with Pressure Pressure Pressure -Other tunnel at 6:00- tunnel at base tunnel 1.0 -1.3cm of ulcer 1.6cm -Offloading No No No -Treatment Response Procedure Procedure Procedure Tolerated Well Tolerated Well Tolerated Well Pain Scale: 0-10 Numeric Is Patient Pain Free? Yes Yes Yes 09/22/18 13:29 Wound Center Nurse 2 #1 Sacral -Time 13:29 -Correct Patient Yes -Correct Side, Site, Position Yes -Correct Procedure Yes -Procedure Performed Yes -Type of Procedure Debridement -Clinical Debridement Subcutaneous -Post Debridement Size (cm) - Length 1.0 -Post Debridement Size (cm) - Width 0.6 -Post Debridement Size (cm) - Depth 0.1 -Total Square Cm 0.60 -Wound/Ulcer Outcome Not Healed -Ulcer Cleansing Rinsed/ Irrigated with Saline -Foul Odor after Cleansing No -Bioengineered Tissue No -Bleeding Controlled with Pressure -Other tunnel 2.2cm -Offloading No -Treatment Response Procedure Tolerated Well Pain Scale: 0-10 Numeric Is Patient Pain Free? Yes Wound debrided: pilonidal cyst Type of Debridement: Excisional debridement Anesthesia Used: 4% Lidocaine Solution Depth: Down to and including healthy tissue, in the subcutaneous layer Percentage of wound debrided: 100 Instrument Used: 3mm curette Tissue Removed: Subcutaneous tissue and slough Severity: Fat Layer Exposed Amount of bleeding with debridement: Mild Bleeding Controlled with: Pressure Patient tolerated procedure well Assessment/Plan Active Problems (Last Updated 02/17/18 @ 15:52 by Viktoriya Cameron) Non-pressure chronic ulcer of skin of other sites with muscle involvement without evidence of necrosis (Chronic) nonhealing ulcer sacral area Pilonidal sinus without abscess (Chronic) recurrent painful complicated extensive pilonidal sinus Assessment: 1. Nonhealing ulcer sacral area. 2. Painful recurrent complicated extensive pilonidal cyst with draining sinus with extension to muscular anal sphincter. 3. Former smoker. 4. s/p excision painful recurrent complicated extensive pilonidal cyst with draining sinus with extension to muscular anal sphincter. Plan: Continue VAC to be changed three times a week. A wound culture from 08/03/18 showed MRSE. He was started on Doxycycline. The most inferior aspect of the ulcer has a little more depth than the rest of the healing ulcer. His tunnel depth was deeper this week. He would like to switch to white foam in the tunnel because his daughter, who does his wound vac changes, does not feel comfortable putting the mason foam in the tunnel because it easily tears. He has finished the Cleocin for operative culture that showed Streptococcus mitis/oralis, Bacteroides vulgatus, Fusibacterium nucleatum, Eggerthella lenta, and Propionibacterium propionicum. Prealbumin from 04/10/18 was 22.9. Encourage nutritional supplementation with protein to help the healing process. Renewed his Dilaudid for pain (30 tabs). Renewed his Valium for spasm (20 tabs). He has some fungal issues in his groin. Recommended Nystation powder. Wrote script for Diflucan twice a day (28 tabs). He has returned to work and is doing ok. Followup one week. Discussed with the patient that if healing stops and it appears that more surgery may be warranted, he would need to be evaluated at a tertiary center with Colorectal Surgery because of the extension of the previous surgical excision in 04/19 to the muscular anal sphincter. He voices understanding. Code Visit 111xxx-113xx: 80703 Milvia subq tissue 20 sq cm/<
[2018-09-28 10:16] VITALS: BP 162/90; PULSE 73; RESP 18; TEMP 37.4; BMI 35.0
--- NOTE | 2018-09-28 17:40 | PCM.WC.PN ---
Type of Wound Date of Service: 09/28/18 Chief Complaint: Nonhealing ulcer sacral area. History of Wound: Surgery 04/09/18 - Excision painful recurrent complicated extensive pilonidal cyst with draining sinus with extension to muscular anal sphincter. Wound care - VAC. Operative culture - Streptococcus mitis/oralis, Bacteroides vulgatus, Fusobacterium nucleatum, Eggerthella lenta, and Propionibacterium propionicum. He was treated initially with Doxycycline. He was switched to Cleocin and has finished them. Due to the slowness in healing, another wound culture was obtained on 08/03/18. It showed MRSE and he was started on Doxycycline and has finished them. Prealbumin from 04/10/18 was 22.9. Encourage nutritional supplementation with protein to help the healing process. He has returned to work and is doing ok. Patient is getting frustrated because of the persistent pocket inferiorly toward the perianal area. Progress of Wound: Slowly improving with persistent tract inferiorly in perianal area. - Physical Exam Vital Signs Temp Pulse Resp BP 99.3 F H 73 18 162/90 H 09/28/18 10:16 09/28/18 10:16 09/28/18 10:16 09/28/18 10:16 Wound Measurements and Assessment WC - Nurse 1 - General Ulcer Measurement Start: 09/01/18 13:35 Freq: Status: Active Protocol: Activity Type Activity Date Activity User E-Sign Co-Sign Detail Recorded Client Recorded Date Recorded By Document 09/28/18 10:16 AN [id number] 09/28/18 10:33 AN 09/28/18 10:16 Wound Center Nurse 1 [Ulcer Assessment] #1 Sacral -Current Size (cm) - Length 0.5 -Current Size (cm) - Width 0.2 -Current Size (cm) - Depth 2.2 -Total Square Cm 0.10 -Classification - Thickness Full Thickness without Exposed Support Structure -Exudate Amt Small -Exudate Type Serous -Wound Margin Distinct, Outline Attached -Granulation Amt Large (67-100%) -Granulation Quality Red -Slough/Fibrin Yes -Necrosis Amt Small (1-33%) -Necrotic Tissue Type Adherent Slough -Structure Exposed None/Limited to Skin Breakdown -Texture (Rayna-wound Skin Appearance) Assessed Scarring -Moisture (Rayna-wound Skin Appearance Assessed ) Maceration -Color (Rayna-wound Skin Appearance) Assessed -Temperature (Rayna-wound Skin No Abnormality Appearance) (Pt Warm) -Tenderness on Palpation (Rayna-wound Yes Skin Appearance) -Ulcer Cleansing Rinsed/ Irrigated with Saline -Foul Odor after Cleansing No -Anesthetic Used 4% Lidocaine Solution WC - Nurse 2 - General Ulcer CM Notes Start: 09/01/18 13:35 Freq: Status: Active Protocol: Activity Type Activity Date Activity User E-Sign Co-Sign Detail Recorded Client Recorded Date Recorded By Document 09/28/18 11:03 [id number] 09/28/18 11:04 09/28/18 11:03 Wound Center Nurse 2 [Procedure/Treatment] -Time 11:03 -Correct Patient Yes -Correct Side, Site, Position Yes -Correct Procedure Yes -Procedure Performed Yes -Type of Procedure Debridement -Clinical Debridement Subcutaneous -Post Debridement Size (cm) - Length 2.1 -Post Debridement Size (cm) - Width 0.7 -Post Debridement Size (cm) - Depth 0.3 -Total Square Cm 1.47 -Wound/Ulcer Outcome Not Healed -Ulcer Cleansing Rinsed/ Irrigated with Saline -Foul Odor after Cleansing No -Bioengineered Tissue No -Bleeding Controlled with Pressure -Other tunnel---2.2cm -Offloading No -Treatment Response Procedure Tolerated Well [See Physician Procedure note for Specifics] Pain Scale: 0-10 Numeric [Pain] -Is Patient Pain Free? Yes Debridement Note Post-Debridement Measurements/Treatment WC - Nurse 2 - General Ulcer CM Notes Start: 09/01/18 13:35 Freq: Status: Active Protocol: Activity Type Activity Date Activity User E-Sign Co-Sign Detail Recorded Client Recorded Date Recorded By Document 09/01/18 13:55 [id number] 09/01/18 13:57 Document 09/08/18 13:39 JF [id number] 09/08/18 13:40 Document 09/14/18 09:12 MW [id number] 09/14/18 09:17 MW Document 09/22/18 13:29 JF [id number] 09/22/18 13:30 Document 09/28/18 11:03 [id number] 09/28/18 11:04 09/01/18 09/08/18 09/14/18 13:55 13:39 09:12 Wound Center Nurse 2 #1 Sacral -Time 13:55 13:39 09:13 -Correct Patient Yes Yes Yes -Correct Side, Site, Position Yes Yes Yes -Correct Procedure Yes Yes Yes -Procedure Performed Yes Yes Yes -Type of Procedure Debridement Debridement Debridement -Clinical Debridement Subcutaneous Subcutaneous Subcutaneous -Post Debridement Size (cm) - Length 3.0 2.3 3.0 -Post Debridement Size (cm) - Width 0.5 0.7 0.4 -Post Debridement Size (cm) - Depth 0.5 0.3 0.1 -Total Square Cm 1.50 1.61 1.20 -Wound/Ulcer Outcome Not Healed Not Healed Not Healed -Ulcer Cleansing Rinsed/ Rinsed/ Rinsed/ Irrigated with Irrigated with Irrigated with Saline Saline Saline -Foul Odor after Cleansing No No No -Bioengineered Tissue No No No -Bleeding Controlled with Pressure Pressure Pressure -Other tunnel at 6:00- tunnel at base tunnel 1.0 -1.3cm of ulcer 1.6cm -Offloading No No No -Treatment Response Procedure Procedure Procedure Tolerated Well Tolerated Well Tolerated Well Pain Scale: 0-10 Numeric Is Patient Pain Free? Yes Yes Yes 09/22/18 09/28/18 13:29 11:03 Wound Center Nurse 2 #1 Sacral -Time 13:29 11:03 -Correct Patient Yes Yes -Correct Side, Site, Position Yes Yes -Correct Procedure Yes Yes -Procedure Performed Yes Yes -Type of Procedure Debridement Debridement -Clinical Debridement Subcutaneous Subcutaneous -Post Debridement Size (cm) - Length 1.0 2.1 -Post Debridement Size (cm) - Width 0.6 0.7 -Post Debridement Size (cm) - Depth 0.1 0.3 -Total Square Cm 0.60 1.47 -Wound/Ulcer Outcome Not Healed Not Healed -Ulcer Cleansing Rinsed/ Rinsed/ Irrigated with Irrigated with Saline Saline -Foul Odor after Cleansing No No -Bioengineered Tissue No No -Bleeding Controlled with Pressure Pressure -Other tunnel 2.2cm tunnel---2.2cm -Offloading No No -Treatment Response Procedure Procedure Tolerated Well Tolerated Well Pain Scale: 0-10 Numeric Is Patient Pain Free? Yes Yes Wound debrided: #1 Sacral area. Laterality: Not Applicable Wound Grade/Stage: 3. Type of Debridement: Excisional debridement Anesthesia Used: 4% Lidocaine Solution Depth: Down to and including healthy tissue, in the subcutaneous layer Percentage of wound debrided: 100 Instrument Used: 3mm curette Tissue Removed: subcutaneous tissue. Severity: Fat Layer Exposed Amount of bleeding with debridement: Mild Bleeding Controlled with: Pressure Patient tolerated procedure well Assessment/Plan Assessment: 1. Nonhealing ulcer sacral area. 2. Painful recurrent complicated extensive pilonidal cyst with draining sinus with extension to muscular anal sphincter. 3. Former smoker. 4. s/p excision painful recurrent complicated extensive pilonidal cyst with draining sinus with extension to muscular anal sphincter. Plan: Continue VAC to be changed three times a week. A wound culture from 08/03/18 showed MRSE. He was started on Doxycycline and has finished them. The most inferior aspect of the ulcer has a little more depth than the rest of the healing ulcer and has started to improve again with the VAC but seems to have plateaued. He previously finished the Cleocin for operative culture that showed Streptococcus mitis/oralis, Bacteroides vulgatus, Fusibacterium nucleatum, Eggerthella lenta, and Propionibacterium propionicum. Prealbumin from 04/10/18 was 22.9. Encourage nutritional supplementation with protein to help the healing process. Renewed his Dilaudid for pain (20 tabs). He had some fungal issues in his groin which responded to Nystation powder and Diflucan. He has returned to work and is doing ok. Followup one week. Discussed with the patient that if healing stops and it appears that more surgery may be warranted, he would need to be evaluated at a tertiary center with Colorectal Surgery because of the extension of the previous surgical excision in 04/19 to the muscular anal sphincter. He voices understanding but was hoping something could be done locally. I recommended another excisional debridement which I will do here in [place]. I will be conservative and careful around the perianal area. Hopefully we can improve the wound care just by unroofing the skin that is tracking toward the perianal area. With the wound getting that much closer to the anal opening, it will be imperative to take a shower after each bowel movement. Any stool contamination that is seen that causes more necrosis and more operative debridement, would necessitate evaluation by General Surgery for a diverting colostomy. He voices understanding. I will let the patient know postop if I thought I removed all the abnormal scar tissue from the nonhealing tract or if I had to leave some because of the proximity to the muscular anal sphincter. If so then evaluation would be made at a tertiary center. Will schedule the surgery for next week. It will be under general anesthesia with a surgical observation overnight stay in the hospital. Tissue will be sent to Pathology for analysis to rule out carcinoma and to Microbiology for culture. A positive culture will necessitate antibiotic therapy. I will try and just debride the inferior extension of this ulceration toward the perianal area as the more superior wound has healed. Discussed with the patient that I will not hesitate to open up the whole wound if I felt it was necessary to provide optimal wound care postop. Patient voices understanding. Followup 2 weeks.
--- NOTE | 2018-09-29 17:41 | PN.PCM_ITS ---
Type of Wound Date of Service: 09/28/18 Chief Complaint: Nonhealing ulcer sacral area. History of Wound: Surgery 04/09/18 - Excision painful recurrent complicated extensive pilonidal cyst with draining sinus with extension to muscular anal sphincter. Wound care - VAC. Operative culture - Streptococcus mitis/oralis, Bacteroides vulgatus, Fusobacterium nucleatum, Eggerthella lenta, and Propionibacterium propionicum. He was treated initially with Doxycycline. He was switched to Cleocin and has finished them. Due to the slowness in healing, another wound culture was obtained on 08/03/18. It showed MRSE and he was started on Doxycycline and has finished them. Prealbumin from 04/10/18 was 22.9. Encourage nutritional supplementation with protein to help the healing process. He has returned to work and is doing ok. Patient is getting frustrated because of the persistent pocket inferiorly toward the perianal area. Progress of Wound: Slowly improving with persistent tract inferiorly in perianal area. - Physical Exam Vital Signs Temp Pulse Resp BP 99.3 F H 73 18 162/90 H 09/28/18 10:16 09/28/18 10:16 09/28/18 10:16 09/28/18 10:16 Wound Measurements and Assessment WC - Nurse 1 - General Ulcer Measurement Start: 09/01/18 13:35 Freq: Status: Active Protocol: Activity Type Activity Date Activity User E-Sign Co-Sign Detail Recorded Client Recorded Date Recorded By Document 09/28/18 10:16 AN [id number] 09/28/18 10:33 AN 09/28/18 10:16 Wound Center Nurse 1 [Ulcer Assessment] #1 Sacral -Current Size (cm) - Length 0.5 -Current Size (cm) - Width 0.2 -Current Size (cm) - Depth 2.2 -Total Square Cm 0.10 -Classification - Thickness Full Thickness without Exposed Support Structure -Exudate Amt Small -Exudate Type Serous -Wound Margin Distinct, Outline Attached -Granulation Amt Large (67-100%) -Granulation Quality Red -Slough/Fibrin Yes -Necrosis Amt Small (1-33%) -Necrotic Tissue Type Adherent Slough -Structure Exposed None/Limited to Skin Breakdown -Texture (Rayna-wound Skin Appearance) Assessed Scarring -Moisture (Rayna-wound Skin Appearance Assessed ) Maceration -Color (Rayna-wound Skin Appearance) Assessed -Temperature (Rayna-wound Skin No Abnormality Appearance) (Pt Warm) -Tenderness on Palpation (Rayna-wound Yes Skin Appearance) -Ulcer Cleansing Rinsed/ Irrigated with Saline -Foul Odor after Cleansing No -Anesthetic Used 4% Lidocaine Solution WC - Nurse 2 - General Ulcer CM Notes Start: 09/01/18 13:35 Freq: Status: Active Protocol: Activity Type Activity Date Activity User E-Sign Co-Sign Detail Recorded Client Recorded Date Recorded By Document 09/28/18 11:03 [id number] 09/28/18 11:04 09/28/18 11:03 Wound Center Nurse 2 [Procedure/Treatment] -Time 11:03 -Correct Patient Yes -Correct Side, Site, Position Yes -Correct Procedure Yes -Procedure Performed Yes -Type of Procedure Debridement -Clinical Debridement Subcutaneous -Post Debridement Size (cm) - Length 2.1 -Post Debridement Size (cm) - Width 0.7 -Post Debridement Size (cm) - Depth 0.3 -Total Square Cm 1.47 -Wound/Ulcer Outcome Not Healed -Ulcer Cleansing Rinsed/ Irrigated with Saline -Foul Odor after Cleansing No -Bioengineered Tissue No -Bleeding Controlled with Pressure -Other tunnel---2.2cm -Offloading No -Treatment Response Procedure Tolerated Well [See Physician Procedure note for Specifics] Pain Scale: 0-10 Numeric [Pain] -Is Patient Pain Free? Yes Debridement Note Post-Debridement Measurements/Treatment WC - Nurse 2 - General Ulcer CM Notes Start: 09/01/18 13:35 Freq: Status: Active Protocol: Activity Type Activity Date Activity User E-Sign Co-Sign Detail Recorded Client Recorded Date Recorded By Document 09/01/18 13:55 [id number] 09/01/18 13:57 Document 09/08/18 13:39 JF [id number] 09/08/18 13:40 Document 09/14/18 09:12 MW [id number] 09/14/18 09:17 MW Document 09/22/18 13:29 JF [id number] 09/22/18 13:30 Document 09/28/18 11:03 [id number] 09/28/18 11:04 09/01/18 09/08/18 09/14/18 13:55 13:39 09:12 Wound Center Nurse 2 #1 Sacral -Time 13:55 13:39 09:13 -Correct Patient Yes Yes Yes -Correct Side, Site, Position Yes Yes Yes -Correct Procedure Yes Yes Yes -Procedure Performed Yes Yes Yes -Type of Procedure Debridement Debridement Debridement -Clinical Debridement Subcutaneous Subcutaneous Subcutaneous -Post Debridement Size (cm) - Length 3.0 2.3 3.0 -Post Debridement Size (cm) - Width 0.5 0.7 0.4 -Post Debridement Size (cm) - Depth 0.5 0.3 0.1 -Total Square Cm 1.50 1.61 1.20 -Wound/Ulcer Outcome Not Healed Not Healed Not Healed -Ulcer Cleansing Rinsed/ Rinsed/ Rinsed/ Irrigated with Irrigated with Irrigated with Saline Saline Saline -Foul Odor after Cleansing No No No -Bioengineered Tissue No No No -Bleeding Controlled with Pressure Pressure Pressure -Other tunnel at 6:00- tunnel at base tunnel 1.0 -1.3cm of ulcer 1.6cm -Offloading No No No -Treatment Response Procedure Procedure Procedure Tolerated Well Tolerated Well Tolerated Well Pain Scale: 0-10 Numeric Is Patient Pain Free? Yes Yes Yes 09/22/18 09/28/18 13:29 11:03 Wound Center Nurse 2 #1 Sacral -Time 13:29 11:03 -Correct Patient Yes Yes -Correct Side, Site, Position Yes Yes -Correct Procedure Yes Yes -Procedure Performed Yes Yes -Type of Procedure Debridement Debridement -Clinical Debridement Subcutaneous Subcutaneous -Post Debridement Size (cm) - Length 1.0 2.1 -Post Debridement Size (cm) - Width 0.6 0.7 -Post Debridement Size (cm) - Depth 0.1 0.3 -Total Square Cm 0.60 1.47 -Wound/Ulcer Outcome Not Healed Not Healed -Ulcer Cleansing Rinsed/ Rinsed/ Irrigated with Irrigated with Saline Saline -Foul Odor after Cleansing No No -Bioengineered Tissue No No -Bleeding Controlled with Pressure Pressure -Other tunnel 2.2cm tunnel---2.2cm -Offloading No No -Treatment Response Procedure Procedure Tolerated Well Tolerated Well Pain Scale: 0-10 Numeric Is Patient Pain Free? Yes Yes Wound debrided: #1 Sacral area. Laterality: Not Applicable Wound Grade/Stage: 3. Type of Debridement: Excisional debridement Anesthesia Used: 4% Lidocaine Solution Depth: Down to and including healthy tissue, in the subcutaneous layer Percentage of wound debrided: 100 Instrument Used: 3mm curette Tissue Removed: subcutaneous tissue. Severity: Fat Layer Exposed Amount of bleeding with debridement: Mild Bleeding Controlled with: Pressure Patient tolerated procedure well Assessment/Plan Assessment: 1. Nonhealing ulcer sacral area. 2. Painful recurrent complicated extensive pilonidal cyst with draining sinus with extension to muscular anal sphincter. 3. Former smoker. 4. s/p excision painful recurrent complicated extensive pilonidal cyst with draining sinus with extension to muscular anal sphincter. Plan: Continue VAC to be changed three times a week. A wound culture from 08/03/18 showed MRSE. He was started on Doxycycline and has finished them. The most inferior aspect of the ulcer has a little more depth than the rest of the healing ulcer and has started to improve again with the VAC but seems to have plateaued. He previously finished the Cleocin for operative culture that showed Streptococcus mitis/oralis, Bacteroides vulgatus, Fusibacterium nucleatum, Eggerthella lenta, and Propionibacterium propionicum. Prealbumin from 04/10/18 was 22.9. Encourage nutritional supplementation with protein to help the healing process. Renewed his Dilaudid for pain (20 tabs). He had some fungal issues in his groin which responded to Nystation powder and Diflucan. He has returned to work and is doing ok. Followup one week. Discussed with the patient that if healing stops and it appears that more surgery may be warranted, he would need to be evaluated at a tertiary center with Colorectal Surgery because of the extension of the previous surgical excision in 04/19 to the muscular anal sphincter. He voices understanding but was hoping something could be done locally. I recommended another excisional debridement which I will do here in [place]. I will be conservative and careful around the perianal area. Hopefully we can improve the wound care just by unroofing the skin that is tracking toward the perianal area. With the wound getting that much closer to the anal opening, it will be imperative to take a shower after each bowel movement. Any stool contamination that is seen that causes more necrosis and more operative debridement, would necessitate evaluation by General Surgery for a diverting colostomy. He voices understanding. I will let the patient know postop if I thought I removed all the abnormal scar tissue from the nonhealing tract or if I had to leave some because of the proximity to the muscular anal sphincter. If so then evaluation would be made at a tertiary center. Will schedule the surgery for next week. It will be under general anesthesia with a surgical observation overnight stay in the hospital. Tissue will be sent to Pathology for analysis to rule out carcinoma and to Microbiology for culture. A positive culture will necessitate antibiotic therapy. I will try and just debride the inferior extension of this ulceration toward the perianal area as the more superior wound has healed. Discussed with the patient that I will not hesitate to open up the whole wound if I felt it was necessary to provide optimal wound care postop. Patient voices understanding. Followup 2 weeks.
== END 2018-09-29 23:59 ==
LOC: WC 10:15
PROVIDERS: Family Provider Family Medicine; PCP Family Medicine; Visit Provider Surgery
DX: L05.91 Pilonidal cyst without abscess (principal); L98.422 Non-pressure chronic ulcer of back with fat layer exposed; Z87.891 Personal history of nicotine dependence
CPT/HCPCS: 11042; 97605

== ENCOUNTER 2018-10-05 12:44 | Observation (INO) | payer BC, SELFPAY ==
--- NOTE | 2018-10-04 14:12 | HP.PCM_ITS ---
History and Physical Date of Admission: 10/05/18 HISTORY OF PRESENT ILLNESS 63 year old man presents with a nonhealing ulcer sacral area with a persistent pocket inferiorly toward the perianal area that was the result of surgery on 04/09/18 where he underwent excision painful recurrent complicated extensive pilonidal cyst with draining sinus with extension to muscular anal sphincter. Operative culture showed Streptococcus mitis/oralis, Bacteroides vulgatus, Fusobacterium nucleatum, Eggerthella lenta, and Propionibacterium propionicum. He was treated initially with Doxycycline. He was switched to Cleocin and has finished them. Due to the slowness in healing, another wound culture was obtained on 08/03/18. It showed MRSE and he was started on Doxycycline and has finished them. Prealbumin from 04/10/18 was 22.9. Encourage nutritional supplementation with protein to help the healing process. He has returned to work and is doing ok. Patient is getting frustrated because of the persistent pocket inferiorly toward the perianal area. Further operative debridement was recommended. Since the patient wants to stay local and not go to a tertiary center at this time, I will be conservative with my debridement as I get close to the anal muscular sphincter. Today the patient denies fever. PAST MEDICAL HISTORY Anxiety and depression Arthritis Back problem Bone fracture Carpal tunnel syndrome GERD (gastroesophageal reflux disease) LBBB (left bundle branch block) Neuropathy Pilonidal cyst High blood pressure PAST SURGICAL HISTORY Bilateral carpal tunnel syndrome appendectomy repair of anterior cruciate ligament of left knee arthroscopic knee surgery Left elbow fracture Pilonidal cyst ALLERGIES amoxicillin [From Augmentin] clavulanic acid [From Augmentin] BEE STINGS MEDICATIONS Hydrochlorothiazide Dilaudid Valium aspirin calcium carbonate 500 mg calcium cholecalciferol (vitamin D3) escitalopram fish, borage, flaxseed oils-omega 3,6,9 glucosamine-chondroitin losartan multivitamin Neurontin Metformin FAMILY HISTORY Grandfather - Alcoholism, Arthritis, Colon cancer, Diabetes, Heart disease Grandmother - Arthritis Mother - Anxiety, Bowel disease, Breast cancer, Depression (emotion), Osteoporosis, Respiratory disease Father - Diabetes, Hypertension, High cholesterol, Respiratory disease Son - Anxiety Brother - Anxiety Sister - Anxiety SOCIAL HISTORY Smoking Status: Former smoker alcohol intake: current substance use type: does not use REVIEW OF SYSTEMS General - Denies fever and weight loss. Has some fatigue. Eyes - Denies cataracts and glaucoma. ENT - Denies nasal congestion and sore throat. Has chronic sinus problems. Endocrine - Denies excessive thirst and urination. Skin - Denies skin cancer. Has painful recurrent pilonidal cyst with draining sinus. Has painful mass right plantar foot at MTP joint by small toe. Musculoskeletal - Has joint pain, joint stiffness, weakness of muscles and joints, back pain. Denies arthritis. Neuro - Denies headaches. Cardiovascular - Denies chest pain, fatigue, and shortness of breath with exertion. Psych - Denies anxiety and depression. Respiratory - Denies chronic cough and shortness of breath. Has sleep apnea. Patient is a former smoker. Gastrointestinal - Denies nausea, vomiting, diarrhea, and constipation. Hematologic - Denies abnormal bruising and bleeding. Genitourinary - Denies hematuria and urinary frequency. PHYSICAL EXAMINATION General - Alert and Oriented. HEENT - PERRL. EOMI. Throat is clear. Neck - Supple and nontender. No cervical adenopathy. Lungs - Clear to auscultation. Heart - Regular rate and rhythm. Abdomen - Soft and nondistended. Extremities - FROM. No axillary adenopathy. No inguinal adenopathy. Radial pulses are palpable. Dorsalis pedis pulses are palpable. On the right plantar foot at the MTP joint by the small toe is a firm mass with some callus formation that measures 2 cm. Mild tenderness to palpation. No evidence of infection. Back - On his lower back in the sacral area is a nonhealing ulcer with extension inferiorly toward the perianal area. Measures 0.5 x 0.2 x 2.2 cm. Mild tenderness to palpation. No fluctuance. No redness. No purulent drainage. I pressed on the area and could get no drainage expressed at this time. Neuro - CN II-XII grossly intact. Psych - Normal mood and affect. ASSESSMENT 1. Nonhealing ulcer sacral area with extension inferiorly toward the perianal area. 2. Painful recurrent complicated extensive pilonidal cyst with draining sinus. 3. Former smoker. PLAN Continue VAC to be changed three times a week. A wound culture from 08/03/18 showed ROSALINDA. He was started on Doxycycline and has finished them. The most inferior aspect of the ulcer has a little more depth than the rest of the healing ulcer and has started to improve again with the VAC but seems to have plateaued. He previously finished the Cleocin for operative culture that showed Streptococcus mitis/oralis, Bacteroides vulgatus, Fusibacterium nucleatum, Eggerthella lenta, and Propionibacterium propionicum. Prealbumin from 04/10/18 was 22.9. Encourage nutritional supplementation with protein to help the healing process. Renewed his Dilaudid for pain (20 tabs). He had some fungal issues in his groin which responded to Nystatin powder and Diflucan. He has returned to work and is doing ok. Discussed with the patient that if healing stops and it appears that more surgery may be warranted, he would need to be evaluated at a tertiary center with Colorectal Surgery because of the extension of the previous surgical excision in 04/19 to the muscular anal sphincter. He voices understanding but was hoping something could be done locally. I recommended another excisional debridement which I will do here in [place]. I will be conservative and careful around the perianal area. Hopefully we can improve the wound care just by unroofing the skin that is tracking toward the perianal area. With the wound getting that much closer to the anal opening, it will be imperative to take a shower after each bowel movement. Any stool contamination that is seen that causes more necrosis and more operative debridement, would necessitate evaluation by General Surgery for a diverting colostomy. He voices understanding. I will let the patient know postop if I thought I removed all the abnormal scar tissue from the nonhealing tract or if I had to leave some because of the proximity to the muscular anal sphincter. If so then evaluation would be made at a tertiary center. Will schedule the surgery for next week. It will be under general anesthesia with a surgical observation overnight stay in the hospital. Tissue will be sent to Pathology for analysis to rule out carcinoma and to Microbiology for culture. A positive culture will necessitate antibiotic therapy. I will try and just debride the inferior extension of this ulceration toward the perianal area as the more superior wound has healed. Discussed with the patient that I will not hesitate to open up the whole wound if I felt it was necessary to provide optimal wound care postop. Patient voices understanding. Followup 2 weeks. Patient was informed of the risks and complications of the procedure including alternatives to surgery. These were discussed with the patient personally. Patient voices understanding and wishes to proceed.
[2018-10-05] VITALS (10 sets, daily range): BP systolic 122–152; BP diastolic 63–75; PULSE 60–77; RESP 16–18; TEMP 36.3–37.2; O2SAT 95–99; BMI 16.3; BMI 35.2
[2018-10-05] MEDS: Vancomycin IV 1,000 MG/200 ML BAG 200 MG IV (11:05)
[2018-10-05 11:10] LABS: Bedside Glucose 142 mg/dL (70-110)
--- NOTE | 2018-10-05 12:05 | PILCYST_PTH ---
PATIENT: TEVIN KAY LOC: MS3 U#:[id number] AGE/SX: 63/M ROOM: [facility] [place] RE10/05/[address]: Dr. Casey Melendez MD : 1955 BED: 1 DIS: 10/06/2018 SPEC #: [id number] RECD: 10/05/18 13:11 STATUS: JONNY REQ #: [id number] PAM: 10/05/18 12:[address]: Casey Melendez DEPT: SURGICAL PATHOLOGY RECD BY: Berto Santos ENTERED: 10/05/18 13:26 SP TYPE: Pilonidal OTHR DR: Dr. Joe Yao MD Tissues: PILONIDAL TISSUE Procedures: Surgery Specimen Level III HEADER OPERATION: Surgical prep perianal, sacral areas with excisions, infected PRE-OP DIAGNOSIS: Nonhealing ulcer sacral area with extension toward perianal area; painful recurrent extensive pilonidal cyst with draining sinus TISSUE SUBMITTED: Debrided soft tissue from perianal and sacrum MICROSCOPIC DIAGNOSIS Debrided soft tissue from perianal and sacrum: Skin with underlying tissue with focal ulceration, acute inflammation and granulation tissue reaction. Focal hyperkeratosis. DON:elise 10/06/18 MICROSCOPIC DESCRIPTION Slides are reviewed. GROSS DESCRIPTION Received in fixative is one container labeled with the patient's name and designated debrided soft tissue from perianal and sacrum. The specimen consists of a piece of soft tissue measuring 4 x 2 x 2 cm. A piece of skin is noted at one edge measuring 3 cm in length and 0.3 cm in width. It shows an area of incision in the center. Sections do not reveal any mass lesion. Risk Management Consultant sections are submitted in two cassettes. / DON:elise 10/05/18 TC:2 CPT: 27925
--- NOTE | 2018-10-05 12:37 | PCM.OPRPT ---
Report of Operation Date of Procedure: 10/05/18 Pre-Operative Diagnosis: 1. Nonhealing ulcer sacral area with extension inferiorly toward the perianal area. 2. Painful recurrent complicated extensive pilonidal cyst with draining sinus. 3. Former smoker. Post-Operative Diagnosis: Same. Surgery/Procedure Performed:: Surgical preparation perianal area and sacral area with excisional debridement infected nonhealing recurrent ulcer (17.5 cm2). Description of Surgical Findings:: 63 year old man presents with a nonhealing ulcer sacral area with a persistent pocket inferiorly toward the perianal area that was the result of surgery on 04/09/18 where he underwent excision painful recurrent complicated extensive pilonidal cyst with draining sinus with extension to muscular anal sphincter. Operative culture showed Streptococcus mitis/oralis, Bacteroides vulgatus, Fusobacterium nucleatum, Eggerthella lenta, and Propionibacterium propionicum. He was treated initially with Doxycycline. He was switched to Cleocin and has finished them. Due to the slowness in healing, another wound culture was obtained on 08/03/18. It showed MRSE and he was started on Doxycycline and has finished them. Prealbumin from 04/10/18 was 22.9. Encourage nutritional supplementation with protein to help the healing process. He has returned to work and is doing ok. Patient is getting frustrated because of the persistent pocket inferiorly toward the perianal area. Further operative debridement was recommended. Since the patient wants to stay local and not go to a tertiary center at this time, I will be conservative with my debridement as I get close to the anal muscular sphincter. Today the patient denies fever. Patient was informed of the risks and complications of the procedure including alternatives to surgery. These were discussed with the patient personally. Patient voices understanding and wishes to proceed. Size of defect perianal area and sacral area - 5 x 3.5 x 4 cm. Distance to anal opening - 1.5 cm. medical collector: None Type of Anesthesia:: General Specimen's removed: Infected nonhealing recurrent ulcer perianal area and sacral area to Pathology and Microbiology. Drains: None. Estimated Blood Loss (mL): 25 ml. Description of Procedure: Patient was taken to OR in supine position and was placed under general anesthesia. He was then placed in the prone position. The perianal and sacral areas were prepped and draped in the usual fashion. SCD's were placed for DVT prophylaxis. Perioperative antibiotics were given intravenously. Using xylocaine with epinephrine, the perianal and sacral areas were infiltrated. After waiting 5 minutes for the anesthetic to take effect, I proceeded with excision and debridement of this infected nonhealing recurrent ulcer down into the subcutaneous tissue down to the muscular fascia. No pus was seen. A lot of scar tissue is present that was excised. There was a sinus tract down toward the anal opening with scar tissue extending to the muscular anal sphincter. The muscular anal sphincter remained intact. No involvement of the rectum was noted on rectal exam. My gloves were then changed. The overlying skin was excised thus opening up this sinus tract thus making the wound closer to the anal opening, about 1.5 cm. By unroofing this sinus tract, this should hopefully make it easier for the wound care for the healing process. If recurrence continues, then evaluation by a colorectal surgeon may be necessary because further dissection and excision would probably involve the rectum and would need complex repair and temporary diverting colostomy during the healing of the rectal wall repair. The distance of the wound to the anal opening is 1.5 cm. Some of the tissue was sent to Microbiology for culture. A positive culture will necessitate antibiotic therapy. The rest of the tissue will be sent to Pathology for analysis to rule out carcinoma. The wound was irrigated with saline. Hemostasis was obtained with electrocautery. The dimensions of the wound after excision was 5 x 3.5 x 4 cm or 17.5 cm2. The wound was packed with Mepitel nonadherent dressing followed by Kerlix gauze and Betadine followed by 4x4 gauze and an ABD pad compression dressing. This was followed by meshed underwear. Patient tolerated the procedure well and was sent to PACU in satisfactory condition. Patient will be sent upstairs for continued postop care. The VAC may be applied tomorrow if a seal can be maintained with its proximity to the anal opening. Otherwise will place a Silver dressing to be changed daily. After discharge he will followup at the [facility]. Grafts/Implants Used: None. - Complications None. - Admit VTE Documentation VTE Present on Admission: No VTE Mechan Device Prophylaxis: SCD's VTE Pharm Prophylaxis ordered?: No Code Visit Surgery Charges CPT - 82197 ICD-10 - L98.412, L98.495, Z87.891
--- NOTE | 2018-10-05 12:41 | OP.PCM_ITS ---
Report of Operation Date of Procedure: 10/05/18 Pre-Operative Diagnosis: 1. Nonhealing ulcer sacral area with extension i nferiorly toward the perianal area. 2. Painful recurrent complicated extensive pilonidal cyst with draining sinus. 3. Former smoker. Post-Operative Diagnosis: Same. Surgery/Procedure Performed:: Surgical preparation perianal area and sacral area with excisional debridement infected nonhealing recurrent ulcer (17.5 cm2). Description of Surgical Findings:: 63 year old man presents with a nonhealing ulcer sacral area with a persistent pocket inferiorly toward the perianal area that was the result of surgery on 04/09/18 where he underwent excision painful recurrent complicated extensive pilonidal cyst with draining sinus with extension to muscular anal sphincter. Operative culture showed Streptococcus mitis/oralis, Bacteroides vulgatus, Fusobacterium nucleatum, Eggerthella lenta, and Propionibacterium propionicum. He was treated initially with Doxycycline. He was switched to Cleocin and has finished them. Due to the slowness in healing, another wound culture was obtained on 08/03/18. It showed MRSE and he was started on Doxycycline and has finished them. Prealbumin from 04/10/18 was 22.9. Encourage nutritional supplementation with protein to help the healing process. He has returned to work and is doing ok. Patient is getting frustrated because of the persistent pocket inferiorly toward the perianal area. Further operative debridement was recommended. Since the patient wants to stay local and not go to a tertiary center at this time, I will be conservative with my debridement as I get close t o the anal muscular sphincter. Today the patient denies fever. Patient was informed of the risks and complications of the procedure including alternatives to surgery. These were discussed with the patient personally. Patient voices understanding and wishes to proceed. Size of defect perianal area and sacral area - 5 x 3.5 x 4 cm. Distance to anal opening - 1.5 cm. airframe design engineer: None Type of Anesthesia:: General Specimen's removed: Infected nonhealing recurrent ulcer perianal area and sacral area to Pathology and Microbiology. Drains: None. Estimated Blood Loss (mL): 25 ml. Description of Procedure: Patient was taken to OR in supine position and was placed under general anesthesia. He was then placed in the prone position. The perianal and sacral areas were prepped and draped in the usual fashion. SCD's were placed for DVT prophylaxis. Perioperative antibiotics were given intravenously. Using xylocaine with epinephrine, the perianal and sacral areas were infiltrated. After waiting 5 minutes for the anesthetic to take effect, I proceeded with excision and debridement of this infected nonhealing recurrent ulcer down into the subcutaneous tissue down to the muscular fascia. No pus was seen. A lot of scar tissue is present that was excised. There was a sinus tract down toward the anal opening with scar tissue extending to the muscular anal sphincter. The muscular anal sphincter remained intact. No involvement of the rectum was noted on rectal exam. My gloves were then changed. The overlying skin was excised thus opening up this sinus tract thus making the wound closer to the anal opening, about 1.5 cm. By unroofing this sinus tract, this should hopefully make it easier for the wound care for the healing process. If recurrence continues, then evaluation by a colorectal surgeon may be necessary because further dissection and excision would probably involve the rectum and would need complex repair and temporary diverting colostomy during the healing of the rectal wall repair. The distance of the wound to the anal opening is 1.5 cm. Some of the tissue was sent to Microbiology for culture. A positive culture will necessitate antibiotic therapy. The rest of the tissue will be sent to Pathology for analysis to rule out carcinoma. The wound was irrigated with saline. Hemostasis was obtained with electrocautery. The dimensions of the wound after excision was 5 x 3.5 x 4 cm or 17.5 cm2. The wound was packed with Mepitel nonadherent dressing followed by Kerlix gauze and Betadine followed by 4x4 gauze and an ABD pad compression dressing. This was followed by meshed underwear. Patient tolerated the procedure well and was sent to PACU in satisfactory condition. Patient will be sent upstairs for continued postop care. The VAC may be applied tomorrow if a seal can be maintained with its proximity to the anal opening. Otherwise will place a Silver dressing to be changed daily. After discharge he will followup at the [facility]. Grafts/Implants Used: None. - Complications None. - Admit VTE Documentation VTE Present on Admission: No VTE Mechan Device Prophylaxis: SCD's VTE Pharm Prophylaxis ordered?: No Code Visit Surgery Charges CPT - 53066 ICD-10 - L98.412, L98.495, Z87.891
[2018-10-05] MEDS: Lactated Ringers 1,000 ML 60 ML IV (13:52)
[2018-10-05 13:56] LABS: Bedside Glucose 119 mg/dL (70-110)
--- NOTE | 2018-10-05 15:10 | PCM.RX.CS ---
Consult Pharmacy has been consulted to manage selected antiobiotic: Vancomycin Type of Consult: New start Suspected Infection: Skin/Soft tissue Prior Doses of Antibiotics Received/Current Regimen: Vancomycin 1000mg IV x1 preop 10/05/18 at 1105 Weight used for dosin kg Estimated Creatinine Clearance: 86ml/min Goal Trough: 10-15 mcg/mL Pharmacy Plan for Drug Dosing: Pt is a 63 year old male, who is 76 inches and 131kg. Ordered trough is 10-15. Pt received Vancomycin 1000mg IV x1 preop on 10/05/18 at 1105. Initial dosing recommendation is for the pt to receive Vancomycin 1250mg IV q12h, starting 10/05/18 at 2000. Trough will be drawn on 10/07/18 at 0730. Initial SrCr and CrCl were based on labs from 04/10/18 Pharmacy Service will continue to monitor and adjust dosing as required. Follow-Up Labs: Trough Vancomycin - 10/07/18 at 2300
[2018-10-05] MEDS: HYDROmorphone 1 MG/ML Syringe IV (16:49)
[2018-10-05] MEDS: Gabapentin 100 MG Capsule 200 MG PO (21:47)
[2018-10-05] MEDS: Docusate Sodium 100 MG Capsule PO (21:47)
[2018-10-05] MEDS: HYDROmorphone 2 MG TABLET PO (21:47)
[2018-10-06 04:58] VITALS: BP 137/65; PULSE 74; RESP 16; TEMP 36.8; O2SAT 97
[2018-10-06] MEDS: HYDROmorphone 1 MG/ML Syringe IV ×2 (05:01→08:02)
[2018-10-06 05:33] LABS: Hematocrit 38.9 % (40-54); Hemoglobin 13.5 g/dl (13.0-16.5); Mean Corp Hgb Conc 34.7 g/gl (32-36); Mean Corpuscular Hgb 31.3 pg (27.0-32.0); Mean Corpuscular Volume 90.3 fL (80-94); Mean Platelet Vol. 9.9 fl (6.2-12.0); Platelet Count 166 K/mm3 (150-450); RBC Distribution Width CV 13.4 % (11.6-14.6); RBC Distribution Width SD 43.4 fl (35.1-43.9); Red Blood Count 4.31 M/mm3 (4.6-6.2); White Blood Count 7.6 K/mm3 (4.4-11.0)
[2018-10-06 05:34] LABS: Scan Indicated on CBC? Y/N NO
[2018-10-06 05:39] LABS: Erythrocyte Sedimentation Rate 10 mm/hr (0-20)
[2018-10-06 05:56] LABS: ALB/GLOB Ratio 1.1 RATIO (0.9-2.4); AST(SGOT) 28 U/L (15-37); Alanine Aminotransfer ALT/SGPT 34 U/L (16-61); Albumin, Serum 3.3 g/dL (3.2-5.0); Alkaline Phosphatase 48 U/L (45-117); Anion Gap 9 (5-15); BUN 18 mg/dL (7-18); BUN/Creat Ratio 15.5 RATIO (10-20); Calcium,Total 8.5 mg/dL (8.5-10.1); Chloride 106 mmol/L (98-107); Creatinine, Serum 1.16 mg/dL (0.70-1.30); EST Glomerular Filtration Rate 68 mL/min (>60); Est Glom Filt Rate - Afr Amer 82 mL/min (>60); Estimated Creatinine Clearance 80.02 ml/min; Globulin 3.1 g/dL (2.2-4.2); Glucose 146 mg/dL (74-106); Potassium 4.2 mmol/L (3.5-5.1); Prealbumin 22.9 mg/dL (20.0-40.0); Protein, Total 6.4 g/dL (6.4-8.2); Sodium Level 141 mmol/L (136-145)
[2018-10-06] MEDS: metFORMIN HCl 1,000 MG Tablet 1000 MG PO (08:02)
[2018-10-06] MEDS: Calcium (Elemental) 500 MG Tablet PO (08:02)
[2018-10-06] MEDS: Multivitamins,Therapeutic Tablet 1 TABLET PO (08:02)
[2018-10-06] MEDS: Docusate Sodium 100 MG Capsule PO (08:02)
[2018-10-06] MEDS: Losartan Potassium 50 MG Tablet PO (08:02)
[2018-10-06] MEDS: hydroCHLOROthiazide 25 MG Tablet PO (08:02)
--- NOTE | 2018-10-06 09:46 | NURSING ---
wound photo: sacral/kindra-anal
[2018-10-06 10:00] VITALS: BP 113/60; PULSE 76; RESP 14; TEMP 37.1; O2SAT 94
[2018-10-06] MEDS: HYDROmorphone 2 MG TABLET PO (12:22)
--- NOTE | 2018-10-06 13:24 | PCM.DC ---
You will use the following diet at home:: No restrictions, Other - Encourage nutritional supplementation with protein to help the healing process. Discharge Activity: May Drive - while taking narcotic pain medications., May Shower - on the days the vac is changed Return to work on:: 10/12/18 - tentative May shower in (days): 3 - with vac changes May resume sexual activity in: No Restrictions Weight Bearing Status: Weight bearing as tolerated Lifting Restrictions: 10 lbs Call your doctor if your incision/area has: Continuous Slow Oozing, Sudden Increased Bleeding, Increased Pain/ Swelling, Increased Redness, Foul Smelling Discharge, Swelling at the incision site Call your doctor if you observe: Fever of 101 or Higher, Coldness, Increased Pain, Shortness of breath, Chest pain, Calf discomfort, Uncontrolled pain - vac changes tree times per week Change Dressing in (Days):: 3 - vac changes 3 times per week Cleanse incision/area with: Soap & Water - may cleanse the wound with soap and water at the time of the dressing change, may get the wound wet in the shower on the days the vac is changed. Allergies/Adverse Reactions: Allergies amoxicillin [From Augmentin] Allergy (Severe, Verified 10/02/18 11:30) Hives clavulanic acid [From Augmentin] Allergy (Severe, Verified 10/02/18 11:30) Hives BEE STINGS Allergy (Mild, Uncoded 10/02/18 11:30) ALLERGY Medications to take at Discharge Hydrochlorothiazide 25 mg PO DAILY 02/26/14 aspirin 81 mg tablet,delayed release 81 mg PO DAILY 02/17/18 calcium carbonate 500 mg calcium (1,250 mg) tablet 500 mg PO DAILY tab 02/17/18 fish, borage, flaxseed oils-omega 3,6,9 cb #1 400 mg-400 mg-400 mg cap 1 cap PO DAILY cap 02/17/18 losartan 50 mg tablet 50 mg PO DAILY 02/17/18 multivitamin tablet 1 tab PO DAILY 02/17/18 Gluc Osman/Chondro Osman A/Vit C/Mn [Glucosamine-Chondroitin Cap] 1 each PO DAILY 04/08/18 Metformin HCl 1,000 mg PO DAILY 04/08/18 diazepam 5 mg tablet 5 mg PO BID-QID PRN #28 tab 04/17/18 Gabapentin [Neurontin] 200 mg PO DAILY 09/22/18 Docusate Sodium [Colace] 100 mg PO BID 30 Days #60 capsule 10/06/18 Levofloxacin [Levaquin] 500 mg PO DAILY #14 tablet 10/06/18 Metronidazole [Flagyl] 500 mg PO Q8 #30 tablet 10/06/18 Nutritional Supplement [Fritz - ORANGE FLAVOR] 1 packet PO BIDCM 30 Days #60 packet 10/06/18 proMETHazine tablet [Phenergan tablet] 25 mg PO Q6H PRN PRN #20 tablet 10/06/18 The following prescriptions were given: proMETHazine tablet [Phenergan tablet] 25 mg PO Q6H PRN PRN #20 tablet PRN Reason: Nausea Levofloxacin [Levaquin] 500 mg PO DAILY #14 tablet Metronidazole [Flagyl] 500 mg PO Q8 #30 tablet Docusate Sodium [Colace] 100 mg PO BID 30 Days #60 capsule Nutritional Supplement [Fritz - ORANGE FLAVOR] 1 packet PO BIDCM 30 Days #60 packet Primary Care Physician: Joe Yao MD [Primary Care Provider] - Test Results: Test results from this visit will be discussed in further detail at your follow-up appointment, if applicable. Please Follow Up With: Dr. Melendez When: Friday10/12/18 at the [facility] Proposed Discharge Date: 10/06/18
--- NOTE | 2018-10-06 15:27 | PCM.PN.SRG ---
- Physical Exam General: Alert, Oriented x3, Cooperative HEENT: Atraumatic, PERRLA Oral: Moist Mucosa Lungs: Clear to auscultation, Normal air movement Cardiovascular: Regular rate, Regular Rhythm Abdomen: Bowel Sounds Present, Soft Extremities: No edema, Capillary Refill Less than 3 Seconds Skin: No rashes, Ulcer/ Wound - Wound VAC in place Musculoskeletal: No Tenderness to Palpation of Joints or Extremities Neurological: Cranial nerves II-XII grossly intact, Neuro grossly intact Psych/Mental Status: Normal Affect, Appropriate Vital Signs Temp Pulse Resp BP Pulse Ox 98.8 F 76 14 113/60 94 10/06/18 10:00 10/06/18 10:00 10/06/18 10:00 10/06/18 10:00 10/06/18 10:00 Oxygen Delivery Method Room Air Weight: 289 lb 3.2 oz Body Mass Index (BMI) 35.2 Finger Stick Blood Glucose 119 Intake and Output for Last 24 Hours 10/04/18 10/05/18 10/06/18 23:59 23:59 23:59 Intake Total 2860 / 2860 1985 Output Total 1400 / 1400 2400 / 2400 Balance 1460 / 1460 -414 / -414 Microbiology Past 72 Hours 10/05/18 12:36 Gram Stain - Final Biopsy - Buttock Wound Culture - Preliminary Gram positive organism Laboratory Tests Past 24 Hrs 10/06/18 10/06/18 04:45 04:45 WBC 7.6 RBC 4.31 L Hgb 13.5 Hct 38.9 L MCV 90.3 MCH 31.3 MCHC 34.7 RDW 13.4 RDW Differential 43.4 Plt Count 166 MPV 9.9 ESR 10 Sodium 141 Potassium 4.2 Chloride 106 Carbon Dioxide 26.0 Anion Gap 9 BUN 18 Creatinine 1.16 Estim Creat Clear Calc 80.02 Est GFR (MDRD) Af Amer 82 Est GFR (MDRD) Non-Af 68 BUN/Creatinine Ratio 15.5 Glucose 146 H Calcium 8.5 Total Bilirubin 0.40 AST 28 ALT 34 Alkaline Phosphatase 48 C-React Prot Ext Range 10.10 H Total Protein 6.4 Albumin 3.3 Globulin 3.1 Albumin/Globulin Ratio 1.1 Prealbumin 22.9 Medical Necessity - Tobacco Use Smoking Status: Former smoker Tobacco Use: Non-smoker Assessment/Plan 1. Nonhealing ulcer sacral area with extension inferiorly toward the perianal area. - Surgical preparation perianal area and sacral area with excisional debridement infected nonhealing recurrent ulcer (17.5 cm2) on 10/05/18 -Wound VAC applied today -Patient will be discharged to home today -His daughter will change his wound VAC at home -He will follow up at the [facility] on Friday. -Will stop IV Vancomycin and Flagyl and send him home on Levaquin and oral Flagyl -Will prescribe Valium for muscle spasm -He currently has enough Dilaudid for pain at home. -His home going instructions given. 2. Painful recurrent complicated extensive pilonidal cyst with draining sinus. -see above 3. Former smoker.
== END 2018-10-06 15:10 | disposition home or self-care (01) ==
LOC: SDC 13:00
PROVIDERS: Admitting Provider Surgery; Family Provider Family Medicine; PCP Family Medicine; Referring Provider Surgery; Visit Provider Surgery
PROC: (CPT 15002; principal; 2018-10-05 11:55)
DX: L05.01 Pilonidal cyst with abscess (principal); L98.498 Non-pressure chronic ulcer of skin of other sites with other specified severity; F32.9 Major depressive disorder, single episode, unspecified; F41.9 Anxiety disorder, unspecified; K21.9 Gastro-esophageal reflux disease without esophagitis; I10 Essential (primary) hypertension; G62.9 Polyneuropathy, unspecified; M19.90 Unspecified osteoarthritis, unspecified site; Z87.891 Personal history of nicotine dependence; Z86.19 Personal history of other infectious and parasitic diseases; Z79.899 Other long term (current) drug therapy; Z79.84 Long term (current) use of oral hypoglycemic drugs; Z79.82 Long term (current) use of aspirin; L84 Corns and callosities; L90.5 Scar conditions and fibrosis of skin
CPT/HCPCS: 00902; 15002; 46060; 36415; 80053; 82962; 84134; 85027; 85652; 86140; 87070; 87075; 87077; 87102; 87176; 87186; 87205; 87206; 88304; 96365; 96366; 96367; 96375; 96376; 99218; J7050; J7120; G0378; G0379; J2405

== ENCOUNTER 2018-10-27 13:15 | Outpatient (RCR) | payer BC, SELFPAY ==
[2018-09-30 01:05] VITALS: BP 162/90; PULSE 73; RESP 18; TEMP 37.4
[2018-10-05 14:39] VITALS: BMI 35.2
[2018-10-12 08:25] VITALS: BP 156/94; PULSE 72; RESP 16; TEMP 36.9; BMI 35.2
--- NOTE | 2018-10-12 12:49 | PCM.WC.PN ---
Type of Wound Date of Service: 10/12/18 Chief Complaint: Nonhealing ulcer perianal and sacral area. History of Wound: Surgery 10/05/18 - Surgical preparation perianal area and sacral area with excisional debridement infected nonhealing recurrent ulcer (17.5 cm2). Surgery 04/09/18 - Excision painful recurrent complicated extensive pilonidal cyst with draining sinus with extension to muscular anal sphincter. Wound care - VAC. Operative culture (10/05/18) - Streptococcus viridans. He was treated initially with Levaquin and Flagyl. He was switched to Cleocin and the Flagyl was stopped. However, he developed some early diarrhea with the Cleocin. Will stop the Cleocin and will start Erythromycin. Prealbumin from 10/06/18 was 22.9. Encourage nutritional supplementation with protein to help the healing process. Today he denies fever. His appetite is ok. Progress of Wound: Recent surgery 10/05/18. - Physical Exam Vital Signs Temp Pulse Resp BP 98.4 F 72 16 156/94 H 10/12/18 08:25 10/12/18 08:25 10/12/18 08:25 10/12/18 08:25 Wound Measurements and Assessment WC - Nurse 1 - General Ulcer Measurement Start: 10/12/18 08:24 Freq: Status: Active Protocol: Activity Type Activity Date Activity User E-Sign Co-Sign Detail Recorded Client Recorded Date Recorded By Document 10/12/18 08:25 MW [id number] 10/12/18 08:30 MW 10/12/18 08:25 Wound Center Nurse 1 [Ulcer Assessment] #1 Sacral -Combined with other wound No -Current Size (cm) - Length 4.7 -Current Size (cm) - Width 1.4 -Current Size (cm) - Depth 5.9 -Total Square Cm 6.58 -Date of Last Picture (Recall this 10/12/18 field) -Photo Taken Yes -Classification - Thickness Full Thickness with Exposed Support Structure -Exudate Amt Medium -Exudate Type Serosanguineous -Wound Margin Distinct, Outline Attached -Granulation Amt Large (67-100%) -Granulation Quality Red -Slough/Fibrin Yes -Necrosis Amt Small (1-33%) -Necrotic Tissue Type Adherent Slough -Structure Exposed Muscle -Texture (Rayna-wound Skin Appearance) Assessed Scarring -Moisture (Rayna-wound Skin Appearance Assessed ) -Color (Rayna-wound Skin Appearance) Assessed Erythema -Temperature (Rayna-wound Skin No Abnormality Appearance) (Pt Warm) -Tenderness on Palpation (Rayna-wound Yes Skin Appearance) -Ulcer Cleansing soap and water -Foul Odor after Cleansing No -Anesthetic Used 4% Lidocaine Solution 5% Lidocaine Gel - Nurse 2 - General Ulcer CM Notes Start: 10/12/18 08:24 Freq: Status: Active Protocol: Activity Type Activity Date Activity User E-Sign Co-Sign Detail Recorded Client Recorded Date Recorded By Document 10/12/18 08:54 [id number] 10/12/18 08:55 10/12/18 08:54 Wound Center Nurse 2 [Procedure/Treatment] -Time 08:54 -Correct Patient Yes -Correct Side, Site, Position Yes -Correct Procedure Yes -Procedure Performed Yes -Type of Procedure Debridement -Clinical Debridement Subcutaneous -Post Debridement Size (cm) - Length 4.7 -Post Debridement Size (cm) - Width 1.5 -Post Debridement Size (cm) - Depth 6 -Total Square Cm 7.05 -Wound/Ulcer Outcome Not Healed -Ulcer Cleansing Rinsed/ Irrigated with Saline -Foul Odor after Cleansing No -Bioengineered Tissue No -Bleeding Controlled with Pressure -Offloading No -Treatment Response Procedure Tolerated Well [See Physician Procedure note for Specifics] Pain Scale: 0-10 Numeric [Pain] -Is Patient Pain Free? Yes Debridement Note Post-Debridement Measurements/Treatment - Nurse 2 - General Ulcer CM Notes Start: 10/12/18 08:24 Freq: Status: Active Protocol: Activity Type Activity Date Activity User E-Sign Co-Sign Detail Recorded Client Recorded Date Recorded By Document 10/12/18 08:54 [id number] 10/12/18 08:55 10/12/18 08:54 Wound Center Nurse 2 #1 Sacral -Time 08:54 -Correct Patient Yes -Correct Side, Site, Position Yes -Correct Procedure Yes -Procedure Performed Yes -Type of Procedure Debridement -Clinical Debridement Subcutaneous -Post Debridement Size (cm) - Length 4.7 -Post Debridement Size (cm) - Width 1.5 -Post Debridement Size (cm) - Depth 6 -Total Square Cm 7.05 -Wound/Ulcer Outcome Not Healed -Ulcer Cleansing Rinsed/ Irrigated with Saline -Foul Odor after Cleansing No -Bioengineered Tissue No -Bleeding Controlled with Pressure -Offloading No -Treatment Response Procedure Tolerated Well Pain Scale: 0-10 Numeric Is Patient Pain Free? Yes Wound debrided: #1 Perianal and sacral area. Laterality: Not Applicable Wound Grade/Stage: 3. Type of Debridement: Excisional debridement Anesthesia Used: 4% Lidocaine Solution Depth: Down to and including healthy tissue, in the subcutaneous layer Percentage of wound debrided: 100 Instrument Used: 5mm curette Tissue Removed: subcutaneous tissue. Severity: Fat Layer Exposed Amount of bleeding with debridement: Mild Bleeding Controlled with: Pressure Patient tolerated procedure well Assessment/Plan Assessment: 1. Nonhealing ulcer perianal and sacral area. 2. Painful recurrent complicated extensive pilonidal cyst with draining sinus with extension to muscular anal sphincter. 3. Former smoker. 4. s/p surgical preparation perianal area and sacral area with excisional debridement infected nonhealing recurrent ulcer (17.5 cm2). Plan: Continue VAC to be changed three times a week. Operative culture showed Streptococcus viridans. He had some diarrhea from Cleocin which will be stopped. Will change to Erythromycin. Continue the Levaquin. Prealbumin from 10/06/18 was 22.9. Encourage nutritional supplementation with protein to help the healing process. Followup one week.
[2018-10-19 08:55] VITALS: BP 136/82; PULSE 76; RESP 18; TEMP 36.1; BMI 35.2
--- NOTE | 2018-10-19 19:57 | PN.PCM_ITS ---
Type of Wound Date of Service: 10/19/18 Chief Complaint: Nonhealing ulcer perianal and sacral area. History of Wound: Surgery 10/05/18 - Surgical preparation perianal area and sacral area with excisional debridement infected nonhealing recurrent ulcer (17.5 cm2). Surgery 04/09/18 - Excision painful recurrent complicated extensive pilonidal cyst with draining sinus with extension to muscular anal sphincter. Wound care - VAC. Operative culture (10/05/18) - Streptococcus viridans. He was treated initially with Levaquin and Flagyl. He was switched to Cleocin and the Flagyl was stopped. However, he developed some early diarrhea with the Cleocin. The Cleocin was stopped, and he was started on Erythromycin. Prealbumin from 10/06/18 was 22.9. Encourage nutritional supplementation with protein to help the healing process. Today he denies fever. His appetite is ok. Progress of Wound: Improved. - Physical Exam Vital Signs Temp Pulse Resp BP 97 F L 76 18 136/82 H 10/19/18 08:55 10/19/18 08:55 10/19/18 08:55 10/19/18 08:55 Wound Measurements and Assessment WC - Nurse 1 - General Ulcer Measurement Start: 10/12/18 08:24 Freq: Status: Active Protocol: Activity Type Activity Date Activity User E-Sign Co-Sign Detail Recorded Client Recorded Date Recorded By Document 10/19/18 08:55 RB [id number] 10/19/18 08:58 RB 10/19/18 08:55 Wound Center Nurse 1 [Ulcer Assessment] #1 Sacral -Current Size (cm) - Length 4 -Current Size (cm) - Width 6 -Current Size (cm) - Depth 3.8 -Total Square Cm 24 -Photo Taken No -Tunneling No -Undermining/Tunneling No -Circular Undermining No -Exudate Amt Small -Exudate Type Serosanguineous -Wound Margin Distinct, Outline Attached -Granulation Amt Medium (34-66%) -Granulation Quality [place] -Slough/Fibrin Yes -Necrosis Amt Small (1-33%) -Necrotic Tissue Type Adherent Slough -Structure Exposed N/A -Texture (Rayna-wound Skin Appearance) Assessed -Moisture (Rayna-wound Skin Appearance Assessed ) -Color (Rayna-wound Skin Appearance) Assessed -Temperature (Rayna-wound Skin No Abnormality Appearance) (Pt Warm) -Tenderness on Palpation (Rayna-wound No Skin Appearance) -Ulcer Cleansing Rinsed/ Irrigated with Saline -Foul Odor after Cleansing No -Anesthetic Used 4% Lidocaine Solution 5% Lidocaine Gel - Nurse 2 - General Ulcer CM Notes Start: 10/12/18 08:24 Freq: Status: Active Protocol: Activity Type Activity Date Activity User E-Sign Co-Sign Detail Recorded Client Recorded Date Recorded By Document 10/19/18 09:10 [id number] 10/19/18 09:12 10/19/18 09:10 Wound Center Nurse 2 [Procedure/Treatment] -Time 09:10 -Correct Patient Yes -Correct Side, Site, Position Yes -Correct Procedure Yes -Procedure Performed Yes -Type of Procedure Debridement -Clinical Debridement Subcutaneous -Post Debridement Size (cm) - Length 5.5 -Post Debridement Size (cm) - Width 2 -Post Debridement Size (cm) - Depth 3.0 -Total Square Cm 11.0 -Wound/Ulcer Outcome Not Healed -Ulcer Cleansing Rinsed/ Irrigated with Saline -Foul Odor after Cleansing No -Bioengineered Tissue No -Bleeding Controlled with Pressure -Offloading No -Treatment Response Procedure Tolerated Well [See Physician Procedure note for Specifics] Pain Scale: 0-10 Numeric [Pain] -Is Patient Pain Free? Yes Debridement Note Post-Debridement Measurements/Treatment - Nurse 2 - General Ulcer CM Notes Start: 10/12/18 08:24 Freq: Status: Active Protocol: Activity Type Activity Date Activity User E-Sign Co-Sign Detail Recorded Client Recorded Date Recorded By Document 10/12/18 08:54 [id number] 10/12/18 08:55 Document 10/19/18 09:10 [id number] 10/19/18 09:12 10/12/18 10/19/18 08:54 09:10 Wound Center Nurse 2 #1 Sacral -Time 08:54 09:10 -Correct Patient Yes Yes -Correct Side, Site, Position Yes Yes -Correct Procedure Yes Yes -Procedure Performed Yes Yes -Type of Procedure Debridement Debridement -Clinical Debridement Subcutaneous Subcutaneous -Post Debridement Size (cm) - Length 4.7 5.5 -Post Debridement Size (cm) - Width 1.5 2 -Post Debridement Size (cm) - Depth 6 3.0 -Total Square Cm 7.05 11.0 -Wound/Ulcer Outcome Not Healed Not Healed -Ulcer Cleansing Rinsed/ Rinsed/ Irrigated with Irrigated with Saline Saline -Foul Odor after Cleansing No No -Bioengineered Tissue No No -Bleeding Controlled with Pressure Pressure -Offloading No No -Treatment Response Procedure Procedure Tolerated Well Tolerated Well Pain Scale: 0-10 Numeric Is Patient Pain Free? Yes Yes Wound debrided: #1 Perianal and sacral area. Laterality: Not Applicable Wound Grade/Stage: 3. Type of Debridement: Excisional debridement Anesthesia Used: 4% Lidocaine Solution Depth: Down to and including healthy tissue, in the subcutaneous layer Percentage of wound debrided: 100 Instrument Used: 5mm curette Tissue Removed: subcutaneous tissue. Severity: Fat Layer Exposed Amount of bleeding with debridement: Mild Bleeding Controlled with: Pressure Patient tolerated procedure well Assessment/Plan Assessment: 1. Nonhealing ulcer perianal and sacral area. 2. Painful recurrent complicated extensive pilonidal cyst with draining sinus with extension to muscular anal sphincter. 3. Former smoker. 4. s/p surgical preparation perianal area and sacral area with excisional debridement infected nonhealing recurrent ulcer (17.5 cm2). Plan: Continue VAC to be changed three times a week. Operative culture showed Streptococcus viridans. He had some diarrhea from Cleocin which was stopped and he was started on Erythromycin. He is finishing the Levaquin. Prealbumin from 10/06/18 was 22.9. Encourage nutritional supplementation with protein to help the healing process. Renewed his Dilaudid for pain (40 tabs) and his Valium for spasm (30 tabs). Followup one week.
[2018-10-27 13:33] VITALS: BP 135/87; PULSE 78; RESP 18; TEMP 36.6; BMI 35.2
--- NOTE | 2018-10-27 16:24 | PN.PCM_ITS ---
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 Current Visit: Yes Code(s): L98.412 - Non-pressure chronic ulcer of buttock with fat layer exposed Comment: nonhealing recurrent ulcer perianal area (3) Non-pressure chronic ulcer of skin of other sites with muscle involvement without evidence of necrosis Status: Chronic Current Visit: Yes Code(s): L98.495 - Non-pressure chronic ulcer of skin of other sites with muscle involvement without evidence of necrosis Comment: nonhealing ulcer sacral area (4) Sacral wound Status: Chronic Current Visit: Yes Code(s): S31.000A - Unspecified open wound of lower back and pelvis without penetration into retroperitoneum, initial encounter Comment: open surgical pilonidal wound sacral area (5) Former smoker Status: Chronic Current Visit: Yes Code(s): Z87.891 - Personal history of nicotine dependence Type of Wound Date of Service: 10/27/18 Chief Complaint: Nonhealing ulcer perianal and sacral area. History of Wound: Surgery 10/05/18 - Surgical preparation perianal area and sacral area with excisional debridement infected nonhealing recurrent ulcer (17.5 cm2). Surgery 04/09/18 - Excision painful recurrent complicated extensive pilonidal cyst with draining sinus with extension to muscular anal sphincter. Wound care - VAC. Operative culture (10/05/18) - Streptococcus viridans. He was treated initially with Levaquin and Flagyl. He was switched to Cleocin and the Flagyl was stopped. However, he developed some early diarrhea with the Cleocin. The Cleocin was stopped, and he was started on Erythromycin. Prealbumin from 10/06/18 was 22.9. Encourage nutritional supplementation with protein to help the healing process. Today he denies fever. His appetite is ok. Progress of Wound: Improved. - Physical Exam Vital Signs Temp Pulse Resp BP 97.8 F 78 18 135/87 H 10/27/18 13:33 10/27/18 13:33 10/27/18 13:33 10/27/18 13:33 General: Alert, Oriented x3, Cooperative HEENT: Atraumatic Oral: Moist Mucosa Lungs: Normal air movement Cardiovascular: Regular rate Extremities: No edema, Capillary Refill Less than 3 Seconds Skin: Ulcer/ Wound - Chronic pilonidal ulcer Wound Measurements and Assessment WC - Nurse 1 - General Ulcer Measurement Start: 10/12/18 08:24 Freq: Status: Active Protocol: Activity Type Activity Date Activity User E-Sign Co-Sign Detail Recorded Client Recorded Date Recorded By Document 10/27/18 13:33 DL [id number] 10/27/18 13:38 DL 10/27/18 13:33 Wound Center Nurse 1 [Ulcer Assessment] #1 Sacral -Current Size (cm) - Length 5 -Current Size (cm) - Width 2 -Current Size (cm) - Depth 3 -Total Square Cm 10 -Photo Taken No -Exudate Amt Medium -Exudate Type Serosanguineous -Wound Margin Distinct, Outline Attached -Granulation Amt Medium (34-66%) -Granulation Quality [place] Red -Necrosis Amt Medium (34-66%) -Necrotic Tissue Type Adherent Slough -Structure Exposed N/A -Texture (Rayna-wound Skin Appearance) Scarring -Moisture (Rayna-wound Skin Appearance No Abnormality ) -Color (Rayna-wound Skin Appearance) No Abnormality -Temperature (Rayna-wound Skin No Abnormality Appearance) (Pt Warm) -Tenderness on Palpation (Rayna-wound No Skin Appearance) -Ulcer Cleansing Rinsed/ Irrigated with Saline -Foul Odor after Cleansing No -Anesthetic Used 4% Lidocaine Solution [facility] Nurse 2 - General Ulcer CM Notes Start: 10/12/18 08:24 Freq: Status: Active Protocol: Activity Type Activity Date Activity User E-Sign Co-Sign Detail Recorded Client Recorded Date Recorded By Document 10/27/18 14:24 [id number] 10/27/18 14:25 10/27/18 14:24 Wound Center Nurse 2 [Procedure/Treatment] -Time 14:25 -Correct Patient Yes -Correct Side, Site, Position Yes -Correct Procedure Yes -Procedure Performed Yes -Type of Procedure Debridement -Clinical Debridement Subcutaneous -Post Debridement Size (cm) - Length 5.7 -Post Debridement Size (cm) - Width 2 -Post Debridement Size (cm) - Depth 2.3 -Total Square Cm 11.4 -Wound/Ulcer Outcome Not Healed -Ulcer Cleansing Rinsed/ Irrigated with Saline -Foul Odor after Cleansing No -Bioengineered Tissue No -Bleeding Controlled with Pressure -Offloading No -Treatment Response Procedure Tolerated Well [See Physician Procedure note for Specifics] Pain Scale: 0-10 Numeric [Pain] -Is Patient Pain Free? Yes Musculoskeletal: No Tenderness to Palpation of Joints or Extremities Neurological: Neuro grossly intact Psych/Mental Status: Normal Affect, Appropriate Debridement Note Post-Debridement Measurements/Treatment WC - Nurse 2 - General Ulcer CM Notes Start: 10/12/18 08:24 Freq: Status: Active Protocol: Activity Type Activity Date Activity User E-Sign Co-Sign Detail Recorded Client Recorded Date Recorded By Document 10/12/18 08:54 [id number] 10/12/18 08:55 Document 10/19/18 09:10 [id number] 10/19/18 09:12 Document 10/27/18 14:24 [id number] 10/27/18 14:25 10/12/18 10/19/18 10/27/18 08:54 09:10 14:24 Wound Center Nurse 2 #1 Sacral -Time 08:54 09:10 14:25 -Correct Patient Yes Yes Yes -Correct Side, Site, Position Yes Yes Yes -Correct Procedure Yes Yes Yes -Procedure Performed Yes Yes Yes -Type of Procedure Debridement Debridement Debridement -Clinical Debridement Subcutaneous Subcutaneous Subcutaneous -Post Debridement Size (cm) - Length 4.7 5.5 5.7 -Post Debridement Size (cm) - Width 1.5 2 2 -Post Debridement Size (cm) - Depth 6 3.0 2.3 -Total Square Cm 7.05 11.0 11.4 -Wound/Ulcer Outcome Not Healed Not Healed Not Healed -Ulcer Cleansing Rinsed/ Rinsed/ Rinsed/ Irrigated with Irrigated with Irrigated with Saline Saline Saline -Foul Odor after Cleansing No No No -Bioengineered Tissue No No No -Bleeding Controlled with Pressure Pressure Pressure -Offloading No No No -Treatment Response Procedure Procedure Procedure Tolerated Well Tolerated Well Tolerated Well Pain Scale: 0-10 Numeric Is Patient Pain Free? Yes Yes Yes Wound debrided: pilonidal ulcer Laterality: Not Applicable Type of Debridement: Excisional debridement Anesthesia Used: 5% Lidocaine Gel Depth: in the subcutaneous layer Percentage of wound debrided: 100 Instrument Used: 5mm curette Tissue Removed: Subcutaneous tissue and slough Severity: Fat Layer Exposed Amount of bleeding with debridement: Mild Bleeding Controlled with: Pressure Patient tolerated procedure well Assessment/Plan Active Problems (Last Updated 02/17/18 @ 15:52 by Viktoriya Cameron) Non-healing ulcer of buttock with fat layer exposed (Chronic) nonhealing recurrent ulcer perianal area Non-pressure chronic ulcer of skin of other sites with muscle involvement without evidence of necrosis (Chronic) nonhealing ulcer sacral area Sacral wound (Chronic) open surgical pilonidal wound sacral area Former smoker (Chronic) Pilonidal sinus without abscess (Chronic) recurrent painful complicated extensive pilonidal sinus Assessment: 1. Nonhealing ulcer perianal and sacral area. 2. Painful recurrent complicated extensive pilonidal cyst with draining sinus with extension to muscular anal sphincter. 3. Former smoker. 4. s/p surgical preparation perianal area and sacral area with excisional debridement infected nonhealing recurrent ulcer (17.5 cm2). Plan: Continue VAC to be changed three times a week. Operative culture showed Streptococcus viridans. He had some diarrhea from Cleocin which was stopped and he was started on Erythromycin. He is finished the Levaquin. Prealbumin from 10/06/18 was 22.9. Encourage nutritional supplementation with protein to help the healing process. He will contact Dr. Melendez's office for renewal of his Dilaudid for pain and his Valium for spasm. Followup one week. Code Visit [id number]: [id number] [place] subq tissue 20 sq cm/<
== END 2018-10-30 23:59 ==
LOC: WC 13:15
PROVIDERS: Family Provider Family Medicine; PCP Family Medicine; Visit Provider Surgery
DX: L05.91 Pilonidal cyst without abscess (principal); L98.422 Non-pressure chronic ulcer of back with fat layer exposed; Z87.891 Personal history of nicotine dependence
CPT/HCPCS: 11042; 97605

== ENCOUNTER 2018-11-23 08:00 | Outpatient (RCR) | payer BC, SELFPAY ==
[2018-10-31 00:48] VITALS: BP 135/87; PULSE 78; RESP 18; TEMP 36.6
[2018-11-03 13:08] VITALS: BP 159/80; PULSE 75; RESP 18; TEMP 36.6; BMI 35.2
--- NOTE | 2018-11-03 17:16 | PCM.WC.PN ---
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 History of Wound: Surgery 10/05/18 - Surgical preparation perianal area and sacral area with excisional debridement infected nonhealing recurrent ulcer (17.5 cm2). Surgery 04/09/18 - Excision painful recurrent complicated extensive pilonidal cyst with draining sinus with extension to muscular anal sphincter. Wound care - VAC. Operative culture (10/05/18) - Streptococcus viridans. He was treated initially with Levaquin and Flagyl. He was switched to Cleocin and the Flagyl was stopped. However, he developed some early diarrhea with the Cleocin. The Cleocin was stopped, and he was started on Erythromycin. Prealbumin from 10/06/18 was 22.9. Encourage nutritional supplementation with protein to help the healing process. Today he denies fever. His appetite is ok. Progress of Wound: Improved. - Physical Exam Vital Signs Temp Pulse Resp BP 97.8 F 75 18 159/80 H 11/03/18 13:08 11/03/18 13:08 11/03/18 13:08 11/03/18 13:08 General: Alert, Oriented x3, Cooperative HEENT: Atraumatic Oral: Moist Mucosa Lungs: Normal air movement Cardiovascular: Regular rate Extremities: No edema, Capillary Refill Less than 3 Seconds Skin: Ulcer/ Wound - Pilonidal ulcer Wound Measurements and Assessment WC - Nurse 1 - General Ulcer Measurement Start: 11/03/18 13:08 Freq: Status: Active Protocol: Activity Type Activity Date Activity User E-Sign Co-Sign Detail Recorded Client Recorded Date Recorded By Document 11/03/18 13:08 DL [id number] 11/03/18 13:26 DL 11/03/18 13:08 Wound Center Nurse 1 [Ulcer Assessment] #1 Sacral -Current Size (cm) - Length 5 -Current Size (cm) - Width 2 -Current Size (cm) - Depth 2.4 -Total Square Cm 10 -Photo Taken No -Exudate Amt Small -Exudate Type Serosanguineous -Wound Margin Distinct, Outline Attached -Granulation Amt Large (67-100%) -Granulation Quality Red -Necrosis Amt None Present (0 %) -Structure Exposed N/A -Texture (Rayna-wound Skin Appearance) Scarring -Moisture (Rayna-wound Skin Appearance No Abnormality ) -Color (Rayna-wound Skin Appearance) No Abnormality -Temperature (Rayna-wound Skin No Abnormality Appearance) (Pt Warm) -Tenderness on Palpation (Rayna-wound No Skin Appearance) -Ulcer Cleansing Rinsed/ Irrigated with Saline -Foul Odor after Cleansing No -Anesthetic Used 5% Lidocaine Gel WC - Nurse 2 - General Ulcer CM Notes Start: 11/03/18 13:08 Freq: Status: Active Protocol: Activity Type Activity Date Activity User E-Sign Co-Sign Detail Recorded Client Recorded Date Recorded By Document 11/03/18 13:38 [id number] 11/03/18 13:39 DL 11/03/18 13:38 Wound Center Nurse 2 [Procedure/Treatment] -Time 13:39 -Correct Patient Yes -Correct Side, Site, Position Yes -Correct Procedure Yes -Procedure Performed Yes -Type of Procedure Debridement -Clinical Debridement Subcutaneous -Post Debridement Size (cm) - Length 5.5 -Post Debridement Size (cm) - Width 2 -Post Debridement Size (cm) - Depth 2 -Total Square Cm 11.0 -Wound/Ulcer Outcome Not Healed -Ulcer Cleansing Rinsed/ Irrigated with Saline -Foul Odor after Cleansing No -Bioengineered Tissue No -Bleeding Controlled with Pressure -Offloading No -Treatment Response Procedure Tolerated Well [See Physician Procedure note for Specifics] Pain Scale: 0-10 Numeric [Pain] -Is Patient Pain Free? Yes Musculoskeletal: No Tenderness to Palpation of Joints or Extremities Neurological: Neuro grossly intact Psych/Mental Status: Normal Affect, Appropriate Debridement Note Post-Debridement Measurements/Treatment WC - Nurse 2 - General Ulcer CM Notes Start: 11/03/18 13:08 Freq: Status: Active Protocol: Activity Type Activity Date Activity User E-Sign Co-Sign Detail Recorded Client Recorded Date Recorded By Document 11/03/18 13:38 DL [id number] 11/03/18 13:39 DL 11/03/18 13:38 Wound Center Nurse 2 #1 Sacral -Time 13:39 -Correct Patient Yes -Correct Side, Site, Position Yes -Correct Procedure Yes -Procedure Performed Yes -Type of Procedure Debridement -Clinical Debridement Subcutaneous -Post Debridement Size (cm) - Length 5.5 -Post Debridement Size (cm) - Width 2 -Post Debridement Size (cm) - Depth 2 -Total Square Cm 11.0 -Wound/Ulcer Outcome Not Healed -Ulcer Cleansing Rinsed/ Irrigated with Saline -Foul Odor after Cleansing No -Bioengineered Tissue No -Bleeding Controlled with Pressure -Offloading No -Treatment Response Procedure Tolerated Well Pain Scale: 0-10 Numeric Is Patient Pain Free? Yes Wound debrided: Pilonidal ulcer Type of Debridement: Excisional debridement Anesthesia Used: 5% Lidocaine Gel Depth: Down to and including healthy tissue, in the subcutaneous layer Percentage of wound debrided: 100 Instrument Used: 7mm curette Tissue Removed: Subcutaneous tissue and slough Severity: Fat Layer Exposed Amount of bleeding with debridement: Mild Bleeding Controlled with: Pressure, Compression and gauze Patient tolerated procedure well Assessment/Plan Assessment: 1. Nonhealing ulcer perianal and sacral area. 2. Painful recurrent complicated extensive pilonidal cyst with draining sinus with extension to muscular anal sphincter. 3. Former smoker. 4. s/p surgical preparation perianal area and sacral area with excisional debridement infected nonhealing recurrent ulcer (17.5 cm2). Plan: Continue VAC to be changed three times a week. His daughter changes his VAC dressing at home for him. Operative culture showed Streptococcus viridans. He had some diarrhea from Cleocin which was stopped and he was started on Erythromycin. He is finished the Levaquin. Prealbumin from 10/06/18 was 22.9. Encourage nutritional supplementation with protein to help the healing process. He will contact Dr. Melendez's office for renewal of his Dilaudid for pain and his Valium for spasm. Followup one week with Dr. Melendez. Code Visit 111xxx-113xx: [id number] Milvia subq tissue 20 sq cm/< Add On Codes: 54107 Milvia subq tissue add-on
[2018-11-09 09:43] VITALS: BP 148/87; PULSE 78; RESP 16; TEMP 36.2; BMI 35.2
--- NOTE | 2018-11-09 22:30 | PN.PCM_ITS ---
Type of Wound Date of Service: 11/09/18 Chief Complaint: Nonhealing ulcer perianal and sacral area. History of Wound: Surgery 10/05/18 - Surgical preparation perianal area and sacral area with excisional debridement infected nonhealing recurrent ulcer (17.5 cm2). Surgery 04/09/18 - Excision painful recurrent complicated extensive pilonidal cyst with draining sinus with extension to muscular anal sphincter. Wound care - VAC. Operative culture (10/05/18) - Streptococcus viridans. He was treated initially with Levaquin and Flagyl. He was switched to Cleocin and the Flagyl was stopped. However, he developed some early diarrhea with the Cleocin. The Cleocin was stopped, and he was started on Erythromycin. Prealbumin from 10/06/18 was 22.9. Encourage nutritional supplementation with protein to help the healing process. Today he denies fever. His appetite is ok. Progress of Wound: Improved. - Physical Exam Vital Signs Temp Pulse Resp BP 97.2 F L 78 16 148/87 H 11/09/18 09:43 11/09/18 09:43 11/09/18 09:43 11/09/18 09:43 Wound Measurements and Assessment WC - Nurse 1 - General Ulcer Measurement Start: 11/03/18 13:08 Freq: Status: Active Protocol: Activity Type Activity Date Activity User E-Sign Co-Sign Detail Recorded Client Recorded Date Recorded By Document 11/09/18 09:43 DV [id number] 11/09/18 09:48 DV 11/09/18 09:43 Wound Center Nurse 1 [Ulcer Assessment] #1 Sacral -Combined with other wound No -Photo Taken No -Epithelialization None Present -Undermining/Tunneling No -Circular Undermining No -Classification - Thickness Full Thickness without Exposed Support Structure -Exudate Amt Large -Exudate Type Serosanguineous -Wound Margin Flat & Intact -Granulation Amt Medium (34-66%) -Granulation Quality Red -Slough/Fibrin Yes -Necrosis Amt Medium (34-66%) -Necrotic Tissue Type Adherent Slough -Structure Exposed Fascia Muscle -Texture (Rayna-wound Skin Appearance) Assessed -Moisture (Rayna-wound Skin Appearance Assessed ) -Color (Rayna-wound Skin Appearance) Assessed -Temperature (Rayna-wound Skin No Abnormality Appearance) (Pt Warm) -Ulcer Cleansing Rinsed/ Irrigated with Saline -Foul Odor after Cleansing No -Anesthetic Used 4% Lidocaine Solution 5% Lidocaine Gel - Nurse 2 - General Ulcer CM Notes Start: 11/03/18 13:08 Freq: Status: Active Protocol: Activity Type Activity Date Activity User E-Sign Co-Sign Detail Recorded Client Recorded Date Recorded By Document 11/09/18 09:24 [id number] 11/09/18 09:25 11/09/18 09:24 Wound Center Nurse 2 [Procedure/Treatment] -Time 09:24 -Correct Patient Yes -Correct Side, Site, Position Yes -Correct Procedure Yes -Procedure Performed Yes -Type of Procedure Debridement -Clinical Debridement Subcutaneous -Post Debridement Size (cm) - Length 1.7 -Post Debridement Size (cm) - Width 4.8 -Post Debridement Size (cm) - Depth 0.9 -Total Square Cm 8.16 -Wound/Ulcer Outcome Not Healed -Ulcer Cleansing Rinsed/ Irrigated with Saline -Foul Odor after Cleansing No -Bioengineered Tissue No -Bleeding Controlled with Pressure -Offloading No -Treatment Response Procedure Tolerated Well [See Physician Procedure note for Specifics] Pain Scale: 0-10 Numeric [Pain] -Is Patient Pain Free? Yes Debridement Note Post-Debridement Measurements/Treatment - Nurse 2 - General Ulcer CM Notes Start: 11/03/18 13:08 Freq: Status: Active Protocol: Activity Type Activity Date Activity User E-Sign Co-Sign Detail Recorded Client Recorded Date Recorded By Document 11/03/18 13:38 DL [id number] 11/03/18 13:39 DL Document 11/09/18 09:24 [id number] 11/09/18 09:25 11/03/18 11/09/18 13:38 09:24 Wound Center Nurse 2 #1 Sacral -Time 13:39 09:24 -Correct Patient Yes Yes -Correct Side, Site, Position Yes Yes -Correct Procedure Yes Yes -Procedure Performed Yes Yes -Type of Procedure Debridement Debridement -Clinical Debridement Subcutaneous Subcutaneous -Post Debridement Size (cm) - Length 5.5 1.7 -Post Debridement Size (cm) - Width 2 4.8 -Post Debridement Size (cm) - Depth 2 0.9 -Total Square Cm 11.0 8.16 -Wound/Ulcer Outcome Not Healed Not Healed -Ulcer Cleansing Rinsed/ Rinsed/ Irrigated with Irrigated with Saline Saline -Foul Odor after Cleansing No No -Bioengineered Tissue No No -Bleeding Controlled with Pressure Pressure -Offloading No No -Treatment Response Procedure Procedure Tolerated Well Tolerated Well Pain Scale: 0-10 Numeric Is Patient Pain Free? Yes Yes Wound debrided: #1 Nonhealing ulcer perianal and sacral area. Laterality: Not Applicable Wound Grade/Stage: 3. Type of Debridement: Excisional debridement Anesthesia Used: 4% Lidocaine Solution Depth: Down to and including healthy tissue, in the subcutaneous layer Percentage of wound debrided: 100 Instrument Used: 5mm curette Tissue Removed: subcutaneous tissue. Severity: Fat Layer Exposed Amount of bleeding with debridement: Mild Bleeding Controlled with: Pressure Patient tolerated procedure well Assessment/Plan Assessment: 1. Nonhealing ulcer perianal and sacral area. 2. Painful recurrent complicated extensive pilonidal cyst with draining sinus with ex tension to muscular anal sphincter. 3. Former smoker. 4. s/p surgical preparation perianal area and sacral area with excisional debridement infected nonhealing recurrent ulcer (17.5 cm2). Plan: Continue VAC to be changed three times a week. Operative culture showed Streptococcus viridans. He had some diarrhea from Cleocin which was stopped and he was started on Erythromycin. He has finished the Levaquin. Prealbumin from 10/06/18 was 22.9. Encourage nutritional supplementation with protein to help the healing process. Renewed his Dilaudid for pain (30 tabs), to be dispensed on 11/10/18. Renewed his Valium for spasm (30 tabs). He is returning to work tomorrow 11/10/18 as he is able to stand at work at his new ergonomic desk. Followup one week.
[2018-11-16 08:09] VITALS: BP 154/75; PULSE 74; RESP 16; TEMP 36.6; BMI 35.2
--- NOTE | 2018-11-16 09:48 | PN.PCM_ITS ---
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 History of Wound: Surgery 10/05/18 - Surgical preparation perianal area and sacral area with excisional debridement infected nonhealing recurrent ulcer (17.5 cm2). Surgery 04/09/18 - Excision painful recurrent complicated extensive pilonidal cyst with draining sinus with extension to muscular anal sphincter. Wound care - VAC. Operative culture (10/05/18) - Streptococcus viridans. He was treated initially with Levaquin and Flagyl. He was switched to Cleocin and the Flagyl was stopped. However, he developed some early diarrhea with the Cleocin. The Cleocin was stopped, and he was started on Erythromycin. Prealbumin from 10/06/18 was 22.9. Encourage nutritional supplementation with protein to help the healing process. Today he denies fever. His appetite is ok. Progress of Wound: Improved. - Physical Exam Vital Signs Temp Pulse Resp BP 97.8 F 74 16 154/75 H 11/16/18 08:09 11/16/18 08:09 11/16/18 08:09 11/16/18 08:09 General: Alert, Oriented x3, Cooperative HEENT: Atraumatic Oral: Moist Mucosa Lungs: Normal air movement Cardiovascular: Regular rate Extremities: No edema, Capillary Refill Less than 3 Seconds Skin: Ulcer/ Wound - pilonidal ulcer Wound Measurements and Assessment WC - Nurse 1 - General Ulcer Measurement Start: 11/03/18 13:08 Freq: Status: Active Protocol: Activity Type Activity Date Activity User E-Sign Co-Sign Detail Recorded Client Recorded Date Recorded By Document 11/16/18 08:09 [facility] [id number] 11/16/18 08:15 [facility] 11/16/18 08:09 Wound Center Nurse 1 [Ulcer Assessment] #1 Sacral -Combined with other wound No -Current Size (cm) - Length 2.6 -Current Size (cm) - Width 1 -Current Size (cm) - Depth 5 -Total Square Cm 2.6 -Photo Taken No -Epithelialization None Present -Tunneling No -Undermining/Tunneling No -Circular Undermining No -Exudate Amt Small -Exudate Type Serous -Wound Margin Distinct, Outline Attached -Granulation Amt Large (67-100%) -Granulation Quality Pale Red -Slough/Fibrin No -Necrosis Amt None Present (0 %) -Texture (Rayna-wound Skin Appearance) Assessed Scarring -Moisture (Rayna-wound Skin Appearance Assessed ) -Color (Rayna-wound Skin Appearance) Assessed -Temperature (Rayna-wound Skin No Abnormality Appearance) (Pt Warm) -Tenderness on Palpation (Rayna-wound No Skin Appearance) -Ulcer Cleansing Rinsed/ Irrigated with Saline -Foul Odor after Cleansing No -Anesthetic Used 4% Lidocaine Solution WC - Nurse 2 - General Ulcer CM Notes Start: 11/03/18 13:08 Freq: Status: Active Protocol: Activity Type Activity Date Activity User E-Sign Co-Sign Detail Recorded Client Recorded Date Recorded By Document 11/16/18 08:25 [id number] 11/16/18 08:27 11/16/18 08:25 Wound Center Nurse 2 [Procedure/Treatment] -Time 08:26 -Correct Patient Yes -Correct Side, Site, Position Yes -Correct Procedure Yes -Procedure Performed Yes -Type of Procedure Debridement -Clinical Debridement Subcutaneous -Post Debridement Size (cm) - Length 5.0 -Post Debridement Size (cm) - Width 2.4 -Post Debridement Size (cm) - Depth 0.7 -Total Square Cm 12.00 -Wound/Ulcer Outcome Not Healed -Ulcer Cleansing Rinsed/ Irrigated with Saline -Foul Odor after Cleansing No -Bioengineered Tissue No -Bleeding Controlled with Pressure -Offloading No -Treatment Response Procedure Tolerated Well [See Physician Procedure note for Specifics] Pain Scale: 0-10 Numeric [Pain] -Is Patient Pain Free? Yes Musculoskeletal: No Tenderness to Palpation of Joints or Extremities Neurological: Deep Tendon Reflexes 2+/4 and Symmetrical Psych/Mental Status: Normal Affect Debridement Note Post-Debridement Measurements/Treatment WC - Nurse 2 - General Ulcer CM Notes Start: 11/03/18 13:08 Freq: Status: Active Protocol: Activity Type Activity Date Activity User E-Sign Co-Sign Detail Recorded Client Recorded Date Recorded By Document 11/03/18 13:38 DL [id number] 11/03/18 13:39 DL Document 11/09/18 09:24 JF [id number] 11/09/18 09:25 JF Document 11/16/18 08:25 JF [id number] 11/16/18 08:27 JF 11/03/18 11/09/18 11/16/18 13:38 09:24 08:25 Wound Center Nurse 2 #1 Sacral -Time 13:39 09:24 08:26 -Correct Patient Yes Yes Yes -Correct Side, Site, Position Yes Yes Yes -Correct Procedure Yes Yes Yes -Procedure Performed Yes Yes Yes -Type of Procedure Debridement Debridement Debridement -Clinical Debridement Subcutaneous Subcutaneous Subcutaneous -Post Debridement Size (cm) - Length 5.5 1.7 5.0 -Post Debridement Size (cm) - Width 2 4.8 2.4 -Post Debridement Size (cm) - Depth 2 0.9 0.7 -Total Square Cm 11.0 8.16 12.00 -Wound/Ulcer Outcome Not Healed Not Healed Not Healed -Ulcer Cleansing Rinsed/ Rinsed/ Rinsed/ Irrigated with Irrigated with Irrigated with Saline Saline Saline -Foul Odor after Cleansing No No No -Bioengineered Tissue No No No -Bleeding Controlled with Pressure Pressure Pressure -Offloading No No No -Treatment Response Procedure Procedure Procedure Tolerated Well Tolerated Well Tolerated Well Pain Scale: 0-10 Numeric Is Patient Pain Free? Yes Yes Yes Wound debrided: pilonidal area Type of Debridement: Excisional debridement Anesthesia Used: 4% Lidocaine Solution Depth: Down to and including healthy tissue, in the subcutaneous layer Percentage of wound debrided: 100 Instrument Used: 7mm curette Tissue Removed: Subcutaneous tissue and slough Severity: Fat Layer Exposed Amount of bleeding with debridement: Mild Bleeding Controlled with: Pressure Patient tolerated procedure well Assessment/Plan Active Problems (Last Updated 02/17/18 @ 15:52 by Viktoriya Cameron) Non-healing ulcer of buttock with fat layer exposed (Chronic) nonhealing recurrent ulcer perianal area Non-pressure chronic ulcer of skin of other sites with muscle involvement without evidence of necrosis (Chronic) nonhealing ulcer sacral area Former smoker (Chronic) Pilonidal sinus without abscess (Chronic) recurrent painful complicated extensive pilonidal sinus Assessment: 1. Nonhealing ulcer perianal and sacral area. 2. Painful recurrent complicated extensive pilonidal cyst with draining sinus with extension to muscular anal sphincter. 3. Former smoker. 4. s/p surgical preparation perianal area and sacral area with excisional debridement infected nonhealing recurrent ulcer (17.5 cm2). Plan: Continue VAC to be changed three times a week. Operative culture showed Streptococcus viridans. He had some diarrhea from Cleocin which was stopped and he was started on Erythromycin. He has finished the Levaquin. Prealbumin from 10/06/18 was 22.9. Encourage nutritional supplementation with protein to help the healing process. 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 Renewed his Valium for spasm (30 tabs). He has returned to work, he is able to stand at work at his new ergonomic desk. He states he is doing well being back at work. Followup one week. Code Visit 111xxx-113xx: [id number] Milvia subq tissue 20 sq cm/<
[2018-11-23 08:21] VITALS: BP 152/77; PULSE 71; RESP 18; TEMP 36.4; BMI 35.2
--- NOTE | 2018-11-23 23:23 | PN.PCM_ITS ---
Type of Wound Date of Service: 11/23/18 Chief Complaint: Nonhealing ulcer perianal and sacral area. History of Wound: Surgery 10/05/18 - Surgical preparation perianal area and sacral area with excisional debridement infected nonhealing recurrent ulcer (17.5 cm2). Surgery 04/09/18 - Excision painful recurrent complicated extensive pilonidal cyst with draining sinus with extension to muscular anal sphincter. Wound care - VAC. Operative culture (10/05/18) - Streptococcus viridans. He was treated initially with Levaquin and Flagyl. He was switched to Cleocin and the Flagyl was stopped. However, he developed some early diarrhea with the Cleocin. The Cleocin was stopped, and he was started on Erythromycin. Prealbumin from 10/06/18 was 22.9. Encourage nutritional supplementation with protein to help the healing process. Today he denies fever. His appetite is ok. He has returned to work. He is able to stand at work at his new ergonomic desk and is doing ok. Progress of Wound: Improved. - Physical Exam Vital Signs Temp Pulse Resp BP 97.5 F L 71 18 152/77 H 11/23/18 08:21 11/23/18 08:21 11/23/18 08:21 11/23/18 08:21 Wound Measurements and Assessment WC - Nurse 1 - General Ulcer Measurement Start: 11/03/18 13:08 Freq: Status: Active Protocol: Activity Type Activity Date Activity User E-Sign Co-Sign Detail Recorded Client Recorded Date Recorded By Document 11/23/18 08:21 [id number] 11/23/18 08:23 RB 11/23/18 08:21 Wound Center Nurse 1 [Ulcer Assessment] #1 Sacral -Combined with other wound No -Current Size (cm) - Length 4.5 -Current Size (cm) - Width 2 -Current Size (cm) - Depth 0.5 -Total Square Cm 9.0 -Photo Taken No -Tunneling No -Undermining/Tunneling No -Circular Undermining No -Exudate Amt Medium -Exudate Type Serosanguineous -Wound Margin Distinct, Outline Attached -Granulation Amt Medium (34-66%) -Granulation Quality [place],Red -Slough/Fibrin Yes -Necrosis Amt Small (1-33%) -Necrotic Tissue Type Adherent Slough -Structure Exposed N/A -Texture (Rayna-wound Skin Appearance) Assessed, Scarring -Moisture (Rayna-wound Skin Appearance No Abnormality ) -Color (Rayna-wound Skin Appearance) Assessed -Temperature (Rayna-wound Skin No Abnormality Appearance) (Pt Warm) -Tenderness on Palpation (Rayna-wound No Skin Appearance) -Ulcer Cleansing Wound Cleanser -Foul Odor after Cleansing No -Anesthetic Used 4% Lidocaine Solution,5% Lidocaine Gel WC - Nurse 2 - General Ulcer CM Notes Start: 11/03/18 13:08 Freq: Status: Active Protocol: Activity Type Activity Date Activity User E-Sign Co-Sign Detail Recorded Client Recorded Date Recorded By Document 11/23/18 08:42 [id number] 11/23/18 08:43 11/23/18 08:42 Wound Center Nurse 2 [Procedure/Treatment] -Time 08:42 -Correct Patient Yes -Correct Side, Site, Position Yes -Correct Procedure Yes -Procedure Performed Yes -Type of Procedure Debridement -Clinical Debridement Subcutaneous -Post Debridement Size (cm) - Length 4.5 -Post Debridement Size (cm) - Width 2.1 -Post Debridement Size (cm) - Depth 0.5 -Total Square Cm 9.45 -Wound/Ulcer Outcome Not Healed -Ulcer Cleansing Rinsed/ Irrigated with Saline -Foul Odor after Cleansing No -Bioengineered Tissue No -Bleeding Controlled with Pressure -Offloading No -Treatment Response Procedure Tolerated Well [See Physician Procedure note for Specifics] Pain Scale: 0-10 Numeric [Pain] -Is Patient Pain Free? Yes Debridement Note Post-Debridement Measurements/Treatment - Nurse 2 - General Ulcer CM Notes Start: 11/03/18 13:08 Freq: Status: Active Protocol: Activity Type Activity Date Activity User E-Sign Co-Sign Detail Recorded Client Recorded Date Recorded By Document 11/03/18 13:38 DL [id number] 11/03/18 13:39 DL Document 11/09/18 09:24 JF [id number] 11/09/18 09:25 JF Document 11/16/18 08:25 JF [id number] 11/16/18 08:27 JF Document 11/23/18 08:42 [id number] 11/23/18 08:43 11/03/18 11/09/18 11/16/18 13:38 09:24 08:25 Wound Center Nurse 2 #1 Sacral -Time 13:39 09:24 08:26 -Correct Patient Yes Yes Yes -Correct Side, Site, Position Yes Yes Yes -Correct Procedure Yes Yes Yes -Procedure Performed Yes Yes Yes -Type of Procedure Debridement Debridement Debridement -Clinical Debridement Subcutaneous Subcutaneous Subcutaneous -Post Debridement Size (cm) - Length 5.5 1.7 5.0 -Post Debridement Size (cm) - Width 2 4.8 2.4 -Post Debridement Size (cm) - Depth 2 0.9 0.7 -Total Square Cm 11.0 8.16 12.00 -Wound/Ulcer Outcome Not Healed Not Healed Not Healed -Ulcer Cleansing Rinsed/ Rinsed/ Rinsed/ Irrigated with Irrigated with Irrigated with Saline Saline Saline -Foul Odor after Cleansing No No No -Bioengineered Tissue No No No -Bleeding Controlled with Pressure Pressure Pressure -Offloading No No No -Treatment Response Procedure Procedure Procedure Tolerated Well Tolerated Well Tolerated Well Pain Scale: 0-10 Numeric Is Patient Pain Free? Yes Yes Yes 11/23/18 08:42 Wound Center Nurse 2 #1 Sacral -Time 08:42 -Correct Patient Yes -Correct Side, Site, Position Yes -Correct Procedure Yes -Procedure Performed Yes -Type of Procedure Debridement -Clinical Debridement Subcutaneous -Post Debridement Size (cm) - Length 4.5 -Post Debridement Size (cm) - Width 2.1 -Post Debridement Size (cm) - Depth 0.5 -Total Square Cm 9.45 -Wound/Ulcer Outcome Not Healed -Ulcer Cleansing Rinsed/ Irrigated with Saline -Foul Odor after Cleansing No -Bioengineered Tissue No -Bleeding Controlled with Pressure -Offloading No -Treatment Response Procedure Tolerated Well Pain Scale: 0-10 Numeric Is Patient Pain Free? Yes Wound debrided: #1 Perianal and sacral area. Laterality: Not Applicable Wound Grade/Stage: 3. Type of Debridement: Excisional debridement Anesthesia Used: 4% Lidocaine Solution Depth: Down to and including healthy tissue, in the subcutaneous layer Percentage of wound debrided: 100 Instrument Used: 5mm curette Tissue Removed: subcutaneous tissue. Severity: Fat Layer Exposed Amount of bleeding with debridement: Mild Bleeding Controlled with: Pressure Patient tolerated procedure well Assessment/Plan Assessment: 1. Nonhealing ulcer perianal and sacral area. 2. Painful recurrent complicated extensive pilonidal cyst with draining sinus with exten bertha to muscular anal sphincter. 3. Former smoker. 4. s/p surgical preparation perianal area and sacral area with excisional debridement infected nonhealing recurrent ulcer (17.5 cm2). Plan: Continue VAC to be changed three times a week. Operative culture showed Streptococcus viridans. He had some diarrhea from Cleocin which was stopped and he was started on Erythromycin. He has finished the Levaquin. Prealbumin from 10/06/18 was 22.9. Encourage nutritional supplementation with protein to help the healing process. Renewed his Dilaudid for pain (30 tabs). Renewed his Valium for spasm (30 tabs). He has returned to work and is doing ok. He is able to stand at work at his new ergonomic desk. Followup one week.
== END 2018-11-29 23:59 ==
LOC: WC 08:00
PROVIDERS: Family Provider Family Medicine; PCP Family Medicine; Visit Provider Surgery
DX: L05.92 Pilonidal sinus without abscess (principal); Z87.891 Personal history of nicotine dependence; L98.422 Non-pressure chronic ulcer of back with fat layer exposed
CPT/HCPCS: 11042; 97605

== ENCOUNTER 2018-12-28 08:00 | Outpatient (RCR) | payer BC, SELFPAY ==
[2018-11-30 00:33] VITALS: BP 152/77; PULSE 71; RESP 18; TEMP 36.4
[2018-11-30 08:19] VITALS: BP 141/66; PULSE 69; RESP 16; TEMP 35.4; BMI 35.2
--- NOTE | 2018-11-30 12:04 | PN.PCM_ITS ---
Type of Wound Date of Service: 11/30/18 Chief Complaint: Nonhealing ulcer perianal and sacral area. History of Wound: Surgery 10/05/18 - Surgical preparation perianal area and sacral area with excisional debridement infected nonhealing recurrent ulcer (17.5 cm2). Surgery 04/09/18 - Excision painful recurrent complicated extensive pilonidal cyst with draining sinus with extension to muscular anal sphincter. Wound care - VAC. Operative culture (10/05/18) - Streptococcus viridans. He was treated initially with Levaquin and Flagyl. He was switched to Cleocin and the Flagyl was stopped. However, he developed some early diarrhea with the Cleocin. The Cleocin was stopped, and he was started on Erythromycin. Prealbumin from 10/06/18 was 22.9. Encourage nutritional supplementation with protein to help the healing process. Today he denies fever. His appetite is ok. He has returned to work. He is able to stand at work at his new ergonomic desk and is doing ok. Progress of Wound: Improved. - Physical Exam Vital Signs Temp Pulse Resp BP 95.7 F L 69 16 141/66 H 11/30/18 08:19 11/30/18 08:19 11/30/18 08:19 11/30/18 08:19 Debridement Note Post-Debridement Measurements/Treatment WC - Nurse 2 - General Ulcer CM Notes Start: 11/30/18 08:18 Freq: Status: Active Protocol: Activity Type Activity Date Activity User E-Sign Co-Sign Detail Recorded Client Recorded Date Recorded By Document 11/30/18 08:35 [id number] 11/30/18 08:39 11/30/18 08:35 Wound Center Nurse 2 #1 Sacral -Time 08:35 -Correct Patient Yes -Correct Side, Site, Position Yes -Correct Procedure Yes -Procedure Performed Yes -Type of Procedure Debridement -Clinical Debridement Subcutaneous -Post Debridement Size (cm) - Length 4.0 -Post Debridement Size (cm) - Width 1 -Post Debridement Size (cm) - Depth 0.4 -Total Square Cm 4.0 -Wound/Ulcer Outcome Not Healed -Ulcer Cleansing Rinsed/ Irrigated with Saline -Foul Odor after Cleansing No -Bioengineered Tissue No -Bleeding Controlled with Pressure -Offloading No -Treatment Response Procedure Tolerated Well Pain Scale: 0-10 Numeric Is Patient Pain Free? Yes Wound debrided: #1 perianal and sacral area. Laterality: Not Applicable Wound Grade/Stage: 3. Type of Debridement: Excisional debridement Anesthesia Used: 4% Lidocaine Solution Depth: Down to and including healthy tissue, in the subcutaneous layer Percentage of wound debrided: 100 Instrument Used: 5mm curette Tissue Removed: subcutaneous tissue. Severity: Fat Layer Exposed Amount of bleeding with debridement: Mild Bleeding Controlled with: Pressure Patient tolerated procedure well Assessment/Plan Assessment: 1. Nonhealing ulcer perianal and sacral area. 2. Painful recurrent complicated extensive pilonidal cyst with draining sinus with extension to muscular anal sphincter. 3. Former smoker. 4. s/p surgical preparation perianal area and sacral area with excisional debridement infected nonhealing recurrent ulcer (17.5 cm2). Plan: Continue VAC to be changed three times a week. Operative culture showed Streptococcus viridans. He had some diarrhea from Cleocin which was stopped and he was started on Erythromycin. The Erythromycin has been renewed. He has fin ished the Levaquin. Prealbumin from 10/06/18 was 22.9. Encourage nutritional supplementation with protein to help the healing process. Renewed his Dilaudid for pain (20 tabs). Renewed his Valium for spasm (20 tabs). He has returned to work and is doing ok. He is able to stand at work at his new ergonomic desk. Followup one week.
[2018-12-07 08:15] VITALS: BP 149/83; PULSE 75; RESP 16; TEMP 36.7; BMI 35.2
--- NOTE | 2018-12-07 12:44 | PCM.WC.PN ---
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 History of Wound: Surgery 10/05/18 - Surgical preparation perianal area and sacral area with excisional debridement infected nonhealing recurrent ulcer (17.5 cm2). Surgery 04/09/18 - Excision painful recurrent complicated extensive pilonidal cyst with draining sinus with extension to muscular anal sphincter. Wound care - VAC. Operative culture (10/05/18) - Streptococcus viridans. He was treated initially with Levaquin and Flagyl. He was switched to Cleocin and the Flagyl was stopped. However, he developed some early diarrhea with the Cleocin. The Cleocin was stopped, and he was started on Erythromycin. Prealbumin from 10/06/18 was 22.9. Encourage nutritional supplementation with protein to help the healing process. Today he denies fever. His appetite is ok. Progress of Wound: Improved. - Physical Exam Vital Signs Temp Pulse Resp BP 98.0 F 75 16 149/83 H 12/07/18 08:15 12/07/18 08:15 12/07/18 08:15 12/07/18 08:15 General: Alert, Oriented x3, Cooperative HEENT: Atraumatic Oral: Moist Mucosa Lungs: Normal air movement Cardiovascular: Regular rate Extremities: No edema, Capillary Refill Less than 3 Seconds Skin: Ulcer/ Wound - pilonidal ulcer Wound Measurements and Assessment WC - Nurse 1 - General Ulcer Measurement Start: 11/30/18 08:18 Freq: Status: Active Protocol: Activity Type Activity Date Activity User E-Sign Co-Sign Detail Recorded Client Recorded Date Recorded By Document 12/07/18 08:15 DV [id number] 12/07/18 08:27 DV 12/07/18 08:15 Wound Center Nurse 1 [Ulcer Assessment] #1 Sacral -Combined with other wound No -Current Size (cm) - Length 4.6 -Current Size (cm) - Width 2.0 -Current Size (cm) - Depth 0.4 -Total Square Cm 9.20 -Photo Taken No -Epithelialization Small 1-33% -Tunneling No -Undermining/Tunneling No -Circular Undermining No -Classification - Thickness Full Thickness without Exposed Support Structure -Exudate Amt Medium -Exudate Type Yellow/Green -Wound Margin Flat & Intact -Granulation Amt Medium (34-66%) -Granulation Quality Red -Slough/Fibrin Yes -Necrosis Amt Large (67-100%) -Necrotic Tissue Type Adherent Slough -Structure Exposed None/Limited to Skin Breakdown -Texture (Rayna-wound Skin Appearance) Assessed, Scarring,Rash -Moisture (Rayna-wound Skin Appearance Assessed, ) Weeping -Color (Rayna-wound Skin Appearance) Assessed, Erythema -Temperature (Rayna-wound Skin No Abnormality Appearance) (Pt Warm) -Tenderness on Palpation (Rayna-wound No Skin Appearance) -Ulcer Cleansing Rinsed/ Irrigated with Saline -Foul Odor after Cleansing No -Anesthetic Used 4% Lidocaine Solution,5% Lidocaine Gel WC - Nurse 2 - General Ulcer CM Notes Start: 11/30/18 08:18 Freq: Status: Active Protocol: Activity Type Activity Date Activity User E-Sign Co-Sign Detail Recorded Client Recorded Date Recorded By Document 12/07/18 08:43 HERBERT [id number] 12/07/18 08:44 HERBERT 12/07/18 08:43 Wound Center Nurse 2 [Procedure/Treatment] -Time 08:44 -Correct Patient Yes -Correct Side, Site, Position Yes -Correct Procedure Yes -Procedure Performed Yes -Type of Procedure Debridement -Clinical Debridement Subcutaneous -Post Debridement Size (cm) - Length 3.5 -Post Debridement Size (cm) - Width 2 -Post Debridement Size (cm) - Depth 0.2 -Total Square Cm 7.0 -Wound/Ulcer Outcome Not Healed -Ulcer Cleansing Rinsed/ Irrigated with Saline -Foul Odor after Cleansing No -Bioengineered Tissue No -Bleeding Controlled with Pressure -Offloading No -Treatment Response Procedure Tolerated Well [See Physician Procedure note for Specifics] Pain Scale: 0-10 Numeric [Pain] -Is Patient Pain Free? Yes Musculoskeletal: No Tenderness to Palpation of Joints or Extremities Neurological: Neuro grossly intact Psych/Mental Status: Normal Affect, Appropriate Debridement Note Post-Debridement Measurements/Treatment WC - Nurse 2 - General Ulcer CM Notes Start: 11/30/18 08:18 Freq: Status: Active Protocol: Activity Type Activity Date Activity User E-Sign Co-Sign Detail Recorded Client Recorded Date Recorded By Document 11/30/18 08:35 [id number] 11/30/18 08:39 Document 12/07/18 08:43 [id number] 12/07/18 08:44 11/30/18 12/07/18 08:35 08:43 Wound Center Nurse 2 #1 Sacral -Time 08:35 08:44 -Correct Patient Yes Yes -Correct Side, Site, Position Yes Yes -Correct Procedure Yes Yes -Procedure Performed Yes Yes -Type of Procedure Debridement Debridement -Clinical Debridement Subcutaneous Subcutaneous -Post Debridement Size (cm) - Length 4.0 3.5 -Post Debridement Size (cm) - Width 1 2 -Post Debridement Size (cm) - Depth 0.4 0.2 -Total Square Cm 4.0 7.0 -Wound/Ulcer Outcome Not Healed Not Healed -Ulcer Cleansing Rinsed/ Rinsed/ Irrigated with Irrigated with Saline Saline -Foul Odor after Cleansing No No -Bioengineered Tissue No No -Bleeding Controlled with Pressure Pressure -Offloading No No -Treatment Response Procedure Procedure Tolerated Well Tolerated Well Pain Scale: 0-10 Numeric Is Patient Pain Free? Yes Yes Wound debrided: pilonidal Type of Debridement: Excisional debridement Anesthesia Used: 4% Lidocaine Solution Depth: Down to and including healthy tissue, in the subcutaneous layer Percentage of wound debrided: 100 Instrument Used: 5mm curette Tissue Removed: Subcutaneous tissue and slough Severity: Fat Layer Exposed Amount of bleeding with debridement: Mild Bleeding Controlled with: Compression and gauze Patient tolerated procedure well Assessment/Plan Assessment: 1. Nonhealing ulcer perianal and sacral area. 2. Painful recurrent complicated extensive pilonidal cyst with draining sinus with extension to muscular anal sphincter. 3. Former smoker. 4. s/p surgical preparation perianal area and sacral area with excisional debridement infected nonhealing recurrent ulcer (17.5 cm2). Plan: Continue VAC to be changed three times a week. Operative culture showed Streptococcus viridans. He had some diarrhea from Cleocin which was stopped and he was started on Erythromycin. He has finished the Levaquin. Prealbumin from 10/06/18 was 22.9. Encourage nutritional supplementation with protein to help the healing process. He has returned to work, he is able to stand at work at his new ergonomic desk. He states he is doing well being back at work. Followup one week. Code Visit [id number]: [id number] Mil[place] subq tissue 20 sq cm/<
[2018-12-14 08:18] VITALS: BP 152/72; PULSE 61; RESP 18; TEMP 36.3; BMI 35.2
--- NOTE | 2018-12-14 14:24 | PCM.WC.PN ---
Type of Wound Date of Service: 12/14/18 Chief Complaint: Nonhealing ulcer perianal and sacral area. History of Wound: Surgery 10/05/18 - Surgical preparation perianal area and sacral area with excisional debridement infected nonhealing recurrent ulcer (17.5 cm2). Surgery 04/09/18 - Excision painful recurrent complicated extensive pilonidal cyst with draining sinus with extension to muscular anal sphincter. Wound care - VAC. Operative culture (10/05/18) - Streptococcus viridans. He was treated initially with Levaquin and Flagyl. He was switched to Cleocin and the Flagyl was stopped. However, he developed some early diarrhea with the Cleocin. The Cleocin was stopped, and he was started on Erythromycin. He is finishing them. Prealbumin from 10/06/18 was 22.9. Encourage nutritional supplementation with protein to help the healing process. Today he denies fever. His appetite is ok. He has returned to work. He is able to stand at work at his new ergonomic desk and is doing ok. Progress of Wound: Improved. - Physical Exam Vital Signs Temp Pulse Resp BP 97.3 F L 61 18 152/72 H 12/14/18 08:18 12/14/18 08:18 12/14/18 08:18 12/14/18 08:18 Wound Measurements and Assessment WC - Nurse 1 - General Ulcer Measurement Start: 11/30/18 08:18 Freq: Status: Active Protocol: Activity Type Activity Date Activity User E-Sign Co-Sign Detail Recorded Client Recorded Date Recorded By Document 12/14/18 08:18 RB [id number] 12/14/18 08:19 RB 12/14/18 08:18 Wound Center Nurse 1 [Ulcer Assessment] #1 Sacral -Combined with other wound No -Current Size (cm) - Length 3.4 -Current Size (cm) - Width 1 -Current Size (cm) - Depth 0.1 -Total Square Cm 3.4 -Photo Taken No -Tunneling No -Undermining/Tunneling No -Circular Undermining No -Exudate Amt Small -Exudate Type Serosanguineous -Wound Margin Distinct, Outline Attached -Granulation Amt Medium (34-66%) -Granulation Quality [place] -Slough/Fibrin Yes -Necrosis Amt Medium (34-66%) -Necrotic Tissue Type Adherent Slough -Structure Exposed N/A -Texture (Rayna-wound Skin Appearance) Assessed -Moisture (Rayna-wound Skin Appearance Assessed ) -Color (Rayna-wound Skin Appearance) Assessed -Temperature (Rayna-wound Skin No Abnormality Appearance) (Pt Warm) -Tenderness on Palpation (Rayna-wound No Skin Appearance) -Ulcer Cleansing Wound Cleanser -Foul Odor after Cleansing No -Anesthetic Used 4% Lidocaine Solution,5% Lidocaine Gel WC - Nurse 2 - General Ulcer CM Notes Start: 11/30/18 08:18 Freq: Status: Active Protocol: Activity Type Activity Date Activity User E-Sign Co-Sign Detail Recorded Client Recorded Date Recorded By Document 12/14/18 08:30 MW [id number] 12/14/18 08:33 MW 12/14/18 08:30 Wound Center Nurse 2 [Procedure/Treatment] -Time 08:30 -Correct Patient Yes -Correct Side, Site, Position Yes -Correct Procedure Yes -Procedure Performed Yes -Type of Procedure Debridement -Clinical Debridement Subcutaneous -Post Debridement Size (cm) - Length 3.0 -Post Debridement Size (cm) - Width 0.5 -Post Debridement Size (cm) - Depth 0.1 -Total Square Cm 1.50 -Wound/Ulcer Outcome Not Healed -Ulcer Cleansing Rinsed/ Irrigated with Saline -Foul Odor after Cleansing No -Bioengineered Tissue No -Bleeding Controlled with Pressure -Offloading No -Treatment Response Procedure Tolerated Well [See Physician Procedure note for Specifics] Pain Scale: 0-10 Numeric [Pain] -Is Patient Pain Free? Yes Debridement Note Post-Debridement Measurements/Treatment WC - Nurse 2 - General Ulcer CM Notes Start: 11/30/18 08:18 Freq: Status: Active Protocol: Activity Type Activity Date Activity User E-Sign Co-Sign Detail Recorded Client Recorded Date Recorded By Document 11/30/18 08:35 [id number] 11/30/18 08:39 Document 12/07/18 08:43 [id number] 12/07/18 08:44 Document 12/14/18 08:30 MW [id number] 12/14/18 08:33 MW 11/30/18 12/07/18 12/14/18 08:35 08:43 08:30 Wound Center Nurse 2 #1 Sacral -Time 08:35 08:44 08:30 -Correct Patient Yes Yes Yes -Correct Side, Site, Position Yes Yes Yes -Correct Procedure Yes Yes Yes -Procedure Performed Yes Yes Yes -Type of Procedure Debridement Debridement Debridement -Clinical Debridement Subcutaneous Subcutaneous Subcutaneous -Post Debridement Size (cm) - Length 4.0 3.5 3.0 -Post Debridement Size (cm) - Width 1 2 0.5 -Post Debridement Size (cm) - Depth 0.4 0.2 0.1 -Total Square Cm 4.0 7.0 1.50 -Wound/Ulcer Outcome Not Healed Not Healed Not Healed -Ulcer Cleansing Rinsed/ Rinsed/ Rinsed/ Irrigated with Irrigated with Irrigated with Saline Saline Saline -Foul Odor after Cleansing No No No -Bioengineered Tissue No No No -Bleeding Controlled with Pressure Pressure Pressure -Offloading No No No -Treatment Response Procedure Procedure Procedure Tolerated Well Tolerated Well Tolerated Well Pain Scale: 0-10 Numeric Is Patient Pain Free? Yes Yes Yes Wound debrided: #1 Perianal and sacral area. Laterality: Not Applicable Wound Grade/Stage: 3. Type of Debridement: Excisional debridement Anesthesia Used: 4% Lidocaine Solution Depth: Down to and including healthy tissue, in the subcutaneous layer Percentage of wound debrided: 100 Instrument Used: 5mm curette Tissue Removed: subcutaneous tissue. Severity: Fat Layer Exposed Amount of bleeding with debridement: Mild Bleeding Controlled with: Pressure Patient tolerated procedure well Assessment/Plan Assessment: 1. Nonhealing ulcer perianal and sacral area. 2. Painful recurrent complicated extensive pilonidal cyst with draining sinus with extension to muscular anal sphincter. 3. Former smoker. 4. s/p surgical preparation perianal area and sacral area with excisional debridement infected nonhealing recurrent ulcer (17.5 cm2). Plan: As the ulcer continues to improve, will stop the VAC for a holiday and start Silver dressing changes daily. Operative culture showed Streptococcus viridans. He had some diarrhea from Cleocin which was stopped and he was started on Erythromycin. The Erythromycin has been renewed and is finishing them. He has finished the Levaquin. Prealbumin from 10/06/18 was 22.9. Encourage nutritional supplementation with protein to help the healing process. He has returned to work and is doing ok. He is able to stand at work at his new ergonomic desk. Followup one week.
[2018-12-21 08:06] VITALS: BP 150/89; PULSE 65; RESP 16; TEMP 36.6; BMI 35.2
--- NOTE | 2018-12-21 12:41 | PN.PCM_ITS ---
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 History of Wound: Surgery 10/05/18 - Surgical preparation perianal area and sacral area with excisional debridement infected nonhealing recurrent ulcer (17.5 cm2). Surgery 04/09/18 - Excision painful recurrent complicated extensive pilonidal cyst with draining sinus with extension to muscular anal sphincter. Wound care - Will take a VAC holiday this week. He will use silver for his wound care and may change it twice daily due to the heat and his increased perspiration. Operative culture (10/05/18) - Streptococcus viridans. He was treated initially with Levaquin and Flagyl. He was switched to Cleocin and the Flagyl was stopped. However, he developed some early diarrhea with the Cleocin. The Cleocin was stopped, and he was started on Erythromycin. He is finishing them. Prealbumin from 10/06/18 was 22.9. Encourage nutritional supplementation with protein to help the healing process. Today he denies fever. His appetite is ok. He has returned to work. He is able to stand at work at his new ergonomic desk and is doing ok. Progress of Wound: Improved. - Physical Exam Vital Signs Temp Pulse Resp BP 97.8 F 65 16 150/89 H 12/21/18 08:06 12/21/18 08:06 12/21/18 08:06 12/21/18 08:06 General: Alert, Oriented x3, Cooperative HEENT: Atraumatic Oral: Moist Mucosa Lungs: Normal air movement Cardiovascular: Regular rate Extremities: No edema, Capillary Refill Less than 3 Seconds Skin: Ulcer/ Wound - pilonidal ulcer Wound Measurements and Assessment WC - Nurse 1 - General Ulcer Measurement Start: 11/30/18 08:18 Freq: Status: Active Protocol: Activity Type Activity Date Activity User E-Sign Co-Sign Detail Recorded Client Recorded Date Recorded By Document 12/21/18 08:06 [facility] [id number] 12/21/18 08:12 [facility] 12/21/18 08:06 Wound Center Nurse 1 [Ulcer Assessment] #1 Sacral -Combined with other wound No -Current Size (cm) - Length 2.5 -Current Size (cm) - Width 0.4 -Current Size (cm) - Depth 0.1 -Total Square Cm 1.00 -Photo Taken No -Epithelialization Small 1-33% -Tunneling No -Undermining/Tunneling No -Circular Undermining No -Exudate Amt Small -Exudate Type Serous -Wound Margin Distinct, Outline Attached -Granulation Amt Large (67-100%) -Granulation Quality Red -Slough/Fibrin Yes -Necrosis Amt Small (1-33%) -Necrotic Tissue Type Adherent Slough -Texture (Rayna-wound Skin Appearance) Assessed, Scarring -Moisture (Rayna-wound Skin Appearance Assessed, ) Maceration -Color (Rayna-wound Skin Appearance) Erythema,Palor -Temperature (Rayna-wound Skin No Abnormality Appearance) (Pt Warm) -Tenderness on Palpation (Rayna-wound No Skin Appearance) -Ulcer Cleansing Rinsed/ Irrigated with Saline -Foul Odor after Cleansing No -Anesthetic Used 4% Lidocaine Solution WC - Nurse 2 - General Ulcer CM Notes Start: 11/30/18 08:18 Freq: Status: Active Protocol: Activity Type Activity Date Activity User E-Sign Co-Sign Detail Recorded Client Recorded Date Recorded By Document 12/21/18 08:43 MW [id number] 12/21/18 08:46 MW 12/21/18 08:43 Wound Center Nurse 2 [Procedure/Treatment] -Time 08:43 -Correct Patient Yes -Correct Side, Site, Position Yes -Correct Procedure Yes -Procedure Performed Yes -Type of Procedure Debridement -Clinical Debridement Subcutaneous -Post Debridement Size (cm) - Length 2.5 -Post Debridement Size (cm) - Width 0.7 -Post Debridement Size (cm) - Depth 0.1 -Total Square Cm 1.75 -Wound/Ulcer Outcome Not Healed -Ulcer Cleansing Rinsed/ Irrigated with Saline -Foul Odor after Cleansing No -Bioengineered Tissue No -Bleeding Controlled with Pressure -Offloading No -Treatment Response Procedure Tolerated Well [See Physician Procedure note for Specifics] Pain Scale: 0-10 Numeric [Pain] -Is Patient Pain Free? Yes Musculoskeletal: No Tenderness to Palpation of Joints or Extremities Neurological: Neuro grossly intact Psych/Mental Status: Normal Affect, Appropriate Debridement Note Post-Debridement Measurements/Treatment WC - Nurse 2 - General Ulcer CM Notes Start: 11/30/18 08:18 Freq: Status: Active Protocol: Activity Type Activity Date Activity User E-Sign Co-Sign Detail Recorded Client Recorded Date Recorded By Document 11/30/18 08:35 JF [id number] 11/30/18 08:39 JF Document 12/07/18 08:43 JF [id number] 12/07/18 08:44 JF Document 12/14/18 08:30 MW [id number] 12/14/18 08:33 MW Document 12/21/18 08:43 MW [id number] 12/21/18 08:46 MW 11/30/18 12/07/18 12/14/18 08:35 08:43 08:30 Wound Center Nurse 2 #1 Sacral -Time 08:35 08:44 08:30 -Correct Patient Yes Yes Yes -Correct Side, Site, Position Yes Yes Yes -Correct Procedure Yes Yes Yes -Procedure Performed Yes Yes Yes -Type of Procedure Debridement Debridement Debridement -Clinical Debridement Subcutaneous Subcutaneous Subcutaneous -Post Debridement Size (cm) - Length 4.0 3.5 3.0 -Post Debridement Size (cm) - Width 1 2 0.5 -Post Debridement Size (cm) - Depth 0.4 0.2 0.1 -Total Square Cm 4.0 7.0 1.50 -Wound/Ulcer Outcome Not Healed Not Healed Not Healed -Ulcer Cleansing Rinsed/ Rinsed/ Rinsed/ Irrigated with Irrigated with Irrigated with Saline Saline Saline -Foul Odor after Cleansing No No No -Bioengineered Tissue No No No -Bleeding Controlled with Pressure Pressure Pressure -Offloading No No No -Treatment Response Procedure Procedure Procedure Tolerated Well Tolerated Well Tolerated Well Pain Scale: 0-10 Numeric Is Patient Pain Free? Yes Yes Yes 12/21/18 08:43 Wound Center Nurse 2 #1 Sacral -Time 08:43 -Correct Patient Yes -Correct Side, Site, Position Yes -Correct Procedure Yes -Procedure Performed Yes -Type of Procedure Debridement -Clinical Debridement Subcutaneous -Post Debridement Size (cm) - Length 2.5 -Post Debridement Size (cm) - Width 0.7 -Post Debridement Size (cm) - Depth 0.1 -Total Square Cm 1.75 -Wound/Ulcer Outcome Not Healed -Ulcer Cleansing Rinsed/ Irrigated with Saline -Foul Odor after Cleansing No -Bioengineered Tissue No -Bleeding Controlled with Pressure -Offloading No -Treatment Response Procedure Tolerated Well Pain Scale: 0-10 Numeric Is Patient Pain Free? 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 Nonhealing ulcer perianal and sacral area. 2. Painful recurrent complicated extensive pilonidal cyst with draining sinus with extension to muscular anal sphincter. 3. Former smoker. 4. s/p surgical preparation perianal area and sacral area with excisional debridement infected nonhealing recurrent ulcer (17.5 cm2). Plan: As the ulcer continues to improve, will stop the VAC for a holiday and start Silver dressing changes twice daily. He took a VAC holiday for a few days last week then restarted because he was concerned that the ulcer was becoming mushy. We will do silver dressing twice daily do to the warmer temperatures and his increased perspiration. He may restart the VAC if he feels it is necessary. Operative culture showed Streptococcus viridans. He had some diarrhea from Cleocin which was stopped and he was started on Erythromycin. The Erythromycin has been renewed and is finishing them. He has finished the Levaquin. Prealbumin from 10/06/18 was 22.9. Encourage nutritional supplementation with protein to help the healing process. He has returned to work and is doing ok. He is able to stand at work at his new ergonomic desk. Followup one week. Code Visit [id number]: [id number] Milvia subq tissue 20 sq cm/<
[2018-12-28 08:05] VITALS: BP 152/75; PULSE 58; RESP 18; TEMP 36.4; BMI 35.2
--- NOTE | 2018-12-28 18:05 | PCM.WC.PN ---
Type of Wound Date of Service: 12/28/18 Chief Complaint: Nonhealing ulcer perianal and sacral area. History of Wound: Surgery 10/05/18 - Surgical preparation perianal area and sacral area with excisional debridement infected nonhealing recurrent ulcer (17.5 cm2). Surgery 04/09/18 - Excision painful recurrent complicated extensive pilonidal cyst with draining sinus with extension to muscular anal sphincter. Wound care - VAC. Operative culture (10/05/18) - Streptococcus viridans. He was treated initially with Levaquin and Flagyl. He was switched to Cleocin and the Flagyl was stopped. However, he developed some early diarrhea with the Cleocin. The Cleocin was stopped, and he was started on Erythromycin. He has finished them. Prealbumin from 10/06/18 was 22.9. Encourage nutritional supplementation with protein to help the healing process. Today he denies fever. His appetite is ok. He has returned to work. He is able to stand at work at his new ergonomic desk and is doing ok. Progress of Wound: Improved. - Physical Exam Vital Signs Temp Pulse Resp BP 97.5 F L 58 L 18 152/75 H 12/28/18 08:05 12/28/18 08:05 12/28/18 08:05 12/28/18 08:05 Debridement Note Post-Debridement Measurements/Treatment WC - Nurse 2 - General Ulcer CM Notes Start: 11/30/18 08:18 Freq: Status: Active Protocol: Activity Type Activity Date Activity User E-Sign Co-Sign Detail Recorded Client Recorded Date Recorded By Document 11/30/18 08:35 JF [id number] 11/30/18 08:39 JF Document 12/07/18 08:43 JF [id number] 12/07/18 08:44 JF Document 12/14/18 08:30 MW [id number] 12/14/18 08:33 MW Document 12/21/18 08:43 MW [id number] 12/21/18 08:46 MW Document 12/28/18 08:48 MW [id number] 12/28/18 08:49 MW 11/30/18 12/07/18 12/14/18 08:35 08:43 08:30 Wound Center Nurse 2 #1 Sacral -Time 08:35 08:44 08:30 -Correct Patient Yes Yes Yes -Correct Side, Site, Position Yes Yes Yes -Correct Procedure Yes Yes Yes -Procedure Performed Yes Yes Yes -Type of Procedure Debridement Debridement Debridement -Clinical Debridement Subcutaneous Subcutaneous Subcutaneous -Post Debridement Size (cm) - Length 4.0 3.5 3.0 -Post Debridement Size (cm) - Width 1 2 0.5 -Post Debridement Size (cm) - Depth 0.4 0.2 0.1 -Total Square Cm 4.0 7.0 1.50 -Wound/Ulcer Outcome Not Healed Not Healed Not Healed -Ulcer Cleansing Rinsed/ Rinsed/ Rinsed/ Irrigated with Irrigated with Irrigated with Saline Saline Saline -Foul Odor after Cleansing No No No -Bioengineered Tissue No No No -Bleeding Controlled with Pressure Pressure Pressure -Offloading No No No -Treatment Response Procedure Procedure Procedure Tolerated Well Tolerated Well Tolerated Well Pain Scale: 0-10 Numeric Is Patient Pain Free? Yes Yes Yes 12/21/18 12/28/18 08:43 08:48 Wound Center Nurse 2 #1 Sacral -Time 08:43 08:48 -Correct Patient Yes Yes -Correct Side, Site, Position Yes Yes -Correct Procedure Yes Yes -Procedure Performed Yes Yes -Type of Procedure Debridement Debridement -Clinical Debridement Subcutaneous Subcutaneous -Post Debridement Size (cm) - Length 2.5 0.5 -Post Debridement Size (cm) - Width 0.7 1.2 -Post Debridement Size (cm) - Depth 0.1 0.1 -Total Square Cm 1.75 0.60 -Wound/Ulcer Outcome Not Healed Not Healed -Ulcer Cleansing Rinsed/ Rinsed/ Irrigated with Irrigated with Saline Saline -Foul Odor after Cleansing No No -Bioengineered Tissue No No -Bleeding Controlled with Pressure Pressure -Offloading No No -Treatment Response Procedure Procedure Tolerated Well Tolerated Well Pain Scale: 0-10 Numeric Is Patient Pain Free? Yes Yes Wound debrided: #1 Perianal and sacral area. Laterality: Not Applicable Wound Grade/Stage: 3. Type of Debridement: Excisional debridement Anesthesia Used: 4% Lidocaine Solution Depth: Down to and including healthy tissue, in the subcutaneous layer Percentage of wound debrided: 100 Instrument Used: 3mm curette Tissue Removed: subcutaneous tissue. Severity: Fat Layer Exposed Amount of bleeding with debridement: Mild Bleeding Controlled with: Pressure Patient tolerated procedure well Assessment/Plan Assessment: 1. Nonhealing ulcer perianal and sacral area. 2. Painful recurrent complicated extensive pilonidal cyst with draining sinus with extension to muscular anal sphincter. 3. Former smoker. 4. s/p surgical preparation perianal area and sacral area with excisional debridement infected nonhealing recurrent ulcer (17.5 cm2). Plan: The ulcer continues to improve, so will stop the VAC. Start Silver dressing changes daily. Operative culture showed Streptococcus viridans. He had some diarrhea from Cleocin which was stopped and he was started on Erythromycin. The Erythromycin has been renewed and has finished them. He has finished the Levaquin. Prealbumin from 10/06/18 was 22.9. Encourage nutritional supplementation with protein to help the healing process. He has returned to work and is doing ok. He is able to stand at work at his new ergonomic desk. Followup one week.
== END 2018-12-30 23:59 ==
LOC: WC 08:00
PROVIDERS: Family Provider Family Medicine; PCP Family Medicine; Visit Provider Surgery
DX: L05.92 Pilonidal sinus without abscess (principal); Z87.891 Personal history of nicotine dependence; L98.422 Non-pressure chronic ulcer of back with fat layer exposed
CPT/HCPCS: 11042; 97605

== ENCOUNTER 2019-01-25 08:00 | Outpatient (RCR) | payer BC, SELFPAY ==
[2018-12-31 00:38] VITALS: BP 152/75; PULSE 58; RESP 18; TEMP 36.4
[2019-01-04 08:18] VITALS: BP 148/82; PULSE 61; RESP 16; TEMP 36.3; BMI 35.2
--- NOTE | 2019-01-04 09:28 | PCM.WC.PN ---
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 History of Wound: Surgery 10/05/18 - Surgical preparation perianal area and sacral area with excisional debridement infected nonhealing recurrent ulcer (17.5 cm2). Surgery 04/09/18 - Excision painful recurrent complicated extensive pilonidal cyst with draining sinus with extension to muscular anal sphincter. Wound care - Silver for his wound care and may change it twice daily due to the heat and his increased perspiration. He is almost healed except for a small pin hole. Operative culture (10/05/18) - Streptococcus viridans. He was treated initially with Levaquin and Flagyl. He was switched to Cleocin and the Flagyl was stopped. However, he developed some early diarrhea with the Cleocin. The Cleocin was stopped, and he was started on Erythromycin. He is finishing them. Prealbumin from 10/06/18 was 22.9. Encourage nutritional supplementation with protein to help the healing process. Today he denies fever. His appetite is ok. He has returned to work. He is able to stand at work at his new ergonomic desk and is doing ok. Progress of Wound: Improved. Almost healed. - Physical Exam Vital Signs Temp Pulse Resp BP 97.3 F L 61 16 148/82 H 01/04/19 08:18 01/04/19 08:18 01/04/19 08:18 08/05/19 08:18 General: Alert, Oriented x3, Cooperative HEENT: Atraumatic Oral: Moist Mucosa Lungs: Normal air movement Cardiovascular: Regular rate Extremities: No edema, Capillary Refill Less than 3 Seconds Skin: Ulcer/ Wound - pilonidal cyst area Wound Measurements and Assessment - Nurse 1 - General Ulcer Measurement Start: 01/04/19 08:18 Freq: Status: Active Protocol: Activity Type Activity Date Activity User E-Sign Co-Sign Detail Recorded Client Recorded Date Recorded By Document 01/04/19 08:18 ROLO [id number] 01/04/19 08:20 ROLO 01/04/19 08:18 Wound Center Nurse 1 [Ulcer Assessment] #1 Sacral -Combined with other wound No -Current Size (cm) - Length 0.1 -Current Size (cm) - Width 0.1 -Current Size (cm) - Depth 0.1 -Total Square Cm 0.01 -Date of Last Picture (Recall this 01/04/19 field) -Photo Taken Yes -Epithelialization Large 67-100% -Tunneling No -Undermining/Tunneling No -Circular Undermining No -Texture (Rayna-wound Skin Appearance) No Abnormality, Assessed, Scarring -Moisture (Rayna-wound Skin Appearance No Abnormality, ) Assessed -Color (Rayna-wound Skin Appearance) No Abnormality, Assessed -Temperature (Rayna-wound Skin No Abnormality Appearance) (Pt Warm) -Tenderness on Palpation (Rayna-wound No Skin Appearance) -Ulcer Cleansing Rinsed/ Irrigated with Saline -Foul Odor after Cleansing No -Anesthetic Used 4% Lidocaine Solution - Nurse 2 - General Ulcer CM Notes Start: 01/04/19 08:18 Freq: Status: Active Protocol: Activity Type Activity Date Activity User E-Sign Co-Sign Detail Recorded Client Recorded Date Recorded By Document 01/04/19 08:49 JF [id number] 01/04/19 08:50 HERBERT 01/04/19 08:49 Wound Center Nurse 2 [Procedure/Treatment] -Correct Patient No -Correct Side, Site, Position No -Correct Procedure No -Procedure Performed No -Post Debridement Size (cm) - Length 0.1 -Post Debridement Size (cm) - Width 0.1 -Post Debridement Size (cm) - Depth 0.1 -Total Square Cm 0.01 -Wound/Ulcer Outcome Not Healed -Ulcer Cleansing Rinsed/ Irrigated with Saline -Foul Odor after Cleansing No -Bioengineered Tissue No -Bleeding Controlled with Pressure -Offloading No [See Physician Procedure note for Specifics] Pain Scale: 0-10 Numeric [Pain] -Is Patient Pain Free? Yes Musculoskeletal: No Tenderness to Palpation of Joints or Extremities Lymphatic: No Cervical, Supraclavicular, or Inguinal Adenopathy Neurological: Neuro grossly intact Psych/Mental Status: Normal Affect, Appropriate Debridement Note Post-Debridement Measurements/Treatment WC - Nurse 2 - General Ulcer CM Notes Start: 01/04/19 08:18 Freq: Status: Active Protocol: Activity Type Activity Date Activity User E-Sign Co-Sign Detail Recorded Client Recorded Date Recorded By Document 01/04/19 08:49 HERBERT [id number] 01/04/19 08:50 HERBERT 01/04/19 08:49 Wound Center Nurse 2 #1 Sacral -Correct Patient No -Correct Side, Site, Position No -Correct Procedure No -Procedure Performed No -Post Debridement Size (cm) - Length 0.1 -Post Debridement Size (cm) - Width 0.1 -Post Debridement Size (cm) - Depth 0.1 -Total Square Cm 0.01 -Wound/Ulcer Outcome Not Healed -Ulcer Cleansing Rinsed/ Irrigated with Saline -Foul Odor after Cleansing No -Bioengineered Tissue No -Bleeding Controlled with Pressure -Offloading No Pain Scale: 0-10 Numeric Is Patient Pain Free? 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 Nonhealing ulcer perianal and sacral area. 2. Painful recurrent complicated extensive pilonidal cyst with draining sinus with extension to muscular anal sphincter. 3. Former smoker. 4. s/p surgical preparation perianal area and sacral area with excisional debridement infected nonhealing recurrent ulcer (17.5 cm2). Plan: As the ulcer is almost healed. VAC was dc'd We will do silver dressing twice daily do to the warmer temperatures and his increased perspiration. He may restart the VAC if he feels it is necessary. Operative culture showed Streptococcus viridans. He had some diarrhea from Cleocin which was stopped and he was started on Erythromycin. The Erythromycin has been renewed and is finishing them. He has finished the Levaquin. Prealbumin from 10/06/18 was 22.9. Encourage nutritional supplementation with protein to help the healing process. He has returned to work and is doing ok. He is able to stand at work at his new ergonomic desk. Followup one week. Code Visit Office Visits / Consults: [id number] OV L3 Est
[2019-01-11 08:14] VITALS: BP 146/77; PULSE 62; RESP 18; TEMP 36.6; BMI 35.2
--- NOTE | 2019-01-11 23:38 | PN.PCM_ITS ---
Type of Wound Date of Service: 01/11/19 Chief Complaint: Nonhealing ulcer perianal and sacral area. History of Wound: Surgery 10/05/18 - Surgical preparation perianal area and sacral area with excisional debridement infected nonhealing recurrent ulcer (17.5 cm2). Surgery 04/09/18 - Excision painful recurrent complicated extensive pilonidal cyst with draining sinus with extension to muscular anal sphincter. Wound care - Silver. Operative culture (10/05/18) - Streptococcus viridans. He was treated initially with Levaquin and Flagyl. He was switched to Cleocin and the Flagyl was stopped. However, he developed some early diarrhea with the Cleocin. The Cleocin was stopped, and he was started on Erythromycin. He has finished them. Prealbumin from 10/06/18 was 22.9. Encourage nutritional supplementation with protein to help the healing process. Today he denies fever. His appetite is ok . He has returned to work. He is able to stand at work at his new ergonomic desk and is doing ok. Progress of Wound: Healed. - Physical Exam Vital Signs Temp Pulse Resp BP 98 F 62 18 146/77 H 01/11/19 08:14 01/11/19 08:14 01/11/19 08:14 01/11/19 08:14 General: Alert, Oriented x3 HEENT: PERRLA, EOMI Oral: Moist Mucosa Neck: Supple Lungs: Clear to auscultation Cardiovascular: Regular rate, Regular Rhythm Abdomen: Soft, Non-Distended Skin: Ulcer/ Wound - sacral and perianal ulcer has healed. Wound Measurements and Assessment WC - Nurse 1 - General Ulcer Measurement Start: 01/04/19 08:18 Freq: Status: Active Protocol: Activity Type Activity Date Activity User E-Sign Co-Sign Detail Recorded Client Recorded Date Recorded By Document 01/11/19 08:14 DL [id number] 01/11/19 08:21 DL 01/11/19 08:14 Wound Center Nurse 1 [Ulcer Assessment] #1 Sacral -Current Size (cm) - Length 0 -Current Size (cm) - Width 0 -Current Size (cm) - Depth 0 -Total Square Cm 0 -Photo Taken Yes -Exudate Amt None Present -Wound Margin Flat & Intact -Granulation Quality [place] -Necrosis Amt Large (67-100%) -Structure Exposed N/A -Texture (Rayna-wound Skin Appearance) Scarring -Moisture (Rayna-wound Skin Appearance No Abnormality ) -Color (Rayna-wound Skin Appearance) No Abnormality -Temperature (Rayna-wound Skin No Abnormality Appearance) (Pt Warm) -Tenderness on Palpation (Rayna-wound No Skin Appearance) -Ulcer Cleansing Rinsed/ Irrigated with Saline -Foul Odor after Cleansing No WC - Nurse 2 - General Ulcer CM Notes Start: 01/04/19 08:18 Freq: Status: Active Protocol: Activity Type Activity Date Activity User E-Sign Co-Sign Detail Recorded Client Recorded Date Recorded By Document 01/11/19 08:42 [id number] 01/11/19 08:43 01/11/19 08:42 Wound Center Nurse 2 [Procedure/Treatment] -Correct Patient No -Correct Side, Site, Position No -Correct Procedure No -Procedure Performed No -Post Debridement Size (cm) - Length 0 -Post Debridement Size (cm) - Width 0 -Post Debridement Size (cm) - Depth 0 -Total Square Cm 0 -Wound/Ulcer Outcome Healed- Epithelialized [See Physician Procedure note for Specifics] Pain Scale: 0-10 Numeric [Pain] -Is Patient Pain Free? Yes Neurological: Cranial nerves II-XII grossly intact Psych/Mental Status: Normal Affect, Appropriate Debridement Note Post-Debridement Measurements/Treatment WC - Nurse 2 - General Ulcer CM Notes Start: 01/04/19 08:18 Freq: Status: Active Protocol: Activity Type Activity Date Activity User E-Sign Co-Sign Detail Recorded Client Recorded Date Recorded By Document 01/04/19 08:49 [id number] 01/04/19 08:50 Document 01/11/19 08:42 [id number] 01/11/19 08:43 01/04/19 01/11/19 08:49 08:42 Wound Center Nurse 2 #1 Sacral -Correct Patient No No -Correct Side, Site, Position No No -Correct Procedure No No -Procedure Performed No No -Post Debridement Size (cm) - Length 0.1 0 -Post Debridement Size (cm) - Width 0.1 0 -Post Debridement Size (cm) - Depth 0.1 0 -Total Square Cm 0.01 0 -Wound/Ulcer Outcome Not Healed Healed- Epithelialized -Ulcer Cleansing Rinsed/ Irrigated with Saline -Foul Odor after Cleansing No -Bioengineered Tissue No -Bleeding Controlled with Pressure -Offloading No Pain Scale: 0-10 Numeric Is Patient Pain Free? Yes Yes Wound debrided: #1 Sacral and perianal area. Laterality: Not Applicable Wound Grade/Stage: 3. No debridement was completed today - the ulcer has healed. Assessment/Plan Assessment: 1. Ulcer perianal and sacral area, healed. 2. Painful recurrent complicated extensive pilonidal cyst with draining sinus with extension to muscular anal sphincter. 3. Former smoker. 4. s/p surgical preparation perianal area and sacral area with excisional debridement infected nonhealing recurrent ulcer (17.5 cm2). Plan: The ulcer has healed. Continue dry gauze to the area for the next couple of weeks to absorb any residual moisture in the area and to help minimize friction in the area that can lead to an abrasion since the healed scar needs to strengthen and toughen over the next several weeks. Operative culture showed Streptococcus viridans. He had some diarrhea from Cleocin which was stopped and he was started on Erythromycin. The Erythromycin has been renewed and has finished them. Prealbumin from 10/06/18 was 22.9. Encourage nutritional supplementation with protein to help the healing process. He has returned to work and is doing ok. He is able to stand at work at his new ergonomic desk. Followup on an as needed basis if he develops any recurrent ulceration or abrasion. He is discharged from the Wound Center at this time.
[2019-01-25 08:16] VITALS: BP 148/71; PULSE 72; RESP 16; TEMP 36.4; BMI 35.2
--- NOTE | 2019-01-25 09:11 | PCM.WC.PN ---
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 Current Visit: Yes Code(s): L98.412 - Non-pressure chronic ulcer of buttock with fat layer exposed Comment: nonhealing recurrent ulcer perianal area (2) Non-pressure chronic ulcer of skin of other sites with muscle involvement without evidence of necrosis Status: Chronic Current Visit: Yes Code(s): L98.495 - Non-pressure chronic ulcer of skin of other sites with muscle involvement without evidence of necrosis Comment: nonhealing ulcer sacral area (3) Former smoker Status: Chronic Current Visit: Yes Code(s): Z87.891 - Personal history of nicotine dependence (4) Pilonidal sinus without abscess Status: Chronic Current Visit: Yes Code(s): L05.92 - Pilonidal sinus without abscess Comment: recurrent painful complicated extensive pilonidal sinus Type of Wound Date of Service: 01/26/19 Chief Complaint: Nonhealing ulcer perianal and sacral area. History of Wound: Surgery 10/05/18 - Surgical preparation perianal area and sacral area with excisional debridement infected nonhealing recurrent ulcer (17.5 cm2). Surgery 04/09/18 - Excision painful recurrent complicated extensive pilonidal cyst with draining sinus with extension to muscular anal sphincter. Wound care - Silver. Operative culture (10/05/18) - Streptococcus viridans. He was treated initially with Levaquin and Flagyl. He was switched to Cleocin and the Flagyl was stopped. However, he developed some early diarrhea with the Cleocin. The Cleocin was stopped, and he was started on Erythromycin. He has finished them. Prealbumin from 10/06/18 was 22.9. Encourage nutritional supplementation with protein to help the healing process. Today he denies fever. His appetite is ok. He has returned to work. He is able to stand at work at his new ergonomic desk and is doing ok. He was discharged from the wound center on 01/11/19 and states he started to have drainage on 01/13/19. He states he is not having drainage all the time. It will occur intermittently but can be a large amount when it happens. Progress of Wound: Having drainage. - Physical Exam Vital Signs Temp Pulse Resp BP 97.5 F L 72 16 148/71 H 01/25/19 08:16 01/25/19 08:16 01/25/19 08:16 01/25/19 08:16 General: Alert, Oriented x3, Cooperative HEENT: Atraumatic Oral: Moist Mucosa Lungs: Normal air movement Cardiovascular: Regular rate Extremities: No edema Skin: Ulcer/ Wound - Having drainage from below the healed site. There is a pin hole that is just above the anal opening. It appears to have a skin layer over it, unable to probe it with a measuring stick. Unable to obtain any drainage from it. This is a new area than previously was openened. Wound Measurements and Assessment WC - Nurse 1 - General Ulcer Measurement Start: 01/04/19 08:18 Freq: Status: Active Protocol: Activity Type Activity Date Activity User E-Sign Co-Sign Detail Recorded Client Recorded Date Recorded By Document 01/25/19 08:16 MW [id number] 01/25/19 08:19 MW 01/25/19 08:16 Wound Center Nurse 1 [Ulcer Assessment] #2 Sacral -Combined with other wound No -Current Size (cm) - Length 0.1 -Current Size (cm) - Width 0.1 -Current Size (cm) - Depth 0.1 -Total Square Cm 0.01 -Date of Last Picture (Recall this 01/25/19 field) -Photo Taken Yes -Epithelialization None Present -Tunneling No -Undermining/Tunneling No -Circular Undermining No -Exudate Amt Large -Exudate Type Serous -Wound Margin Indistinct, Non -Visible -Granulation Amt None Present (0 %) -Granulation Quality N/A -Slough/Fibrin Yes -Necrosis Amt Small (1-33%) -Necrotic Tissue Type Adherent Slough -Structure Exposed N/A -Texture (Rayna-wound Skin Appearance) Assessed, Scarring -Moisture (Rayna-wound Skin Appearance Assessed ) -Color (Rayna-wound Skin Appearance) Assessed -Temperature (Rayna-wound Skin No Abnormality Appearance) (Pt Warm) -Tenderness on Palpation (Rayna-wound No Skin Appearance) -Ulcer Cleansing Rinsed/ Irrigated with Saline -Foul Odor after Cleansing No -Anesthetic Used 5% Lidocaine Gel [Edema Assessment] -Lower Limb Edema Present No WC - Nurse 2 - General Ulcer CM Notes Start: 01/04/19 08:18 Freq: Status: Active Protocol: Activity Type Activity Date Activity User E-Sign Co-Sign Detail Recorded Client Recorded Date Recorded By Document 01/25/19 08:30 [id number] 01/25/19 08:35 01/25/19 08:30 Wound Center Nurse 2 [Procedure/Treatment] #2 Sacral -Correct Patient No -Correct Side, Site, Position No -Correct Procedure No -Procedure Performed No -Wound/Ulcer Outcome Healed- Epithelialized [See Physician Procedure note for Specifics] Pain Scale: 0-10 Numeric [Pain] -Is Patient Pain Free? Yes Musculoskeletal: No Tenderness to Palpation of Joints or Extremities Neurological: Neuro grossly intact Psych/Mental Status: Normal Affect Debridement Note Post-Debridement Measurements/Treatment WC - Nurse 2 - General Ulcer CM Notes Start: 01/04/19 08:18 Freq: Status: Active Protocol: Activity Type Activity Date Activity User E-Sign Co-Sign Detail Recorded Client Recorded Date Recorded By Document 01/04/19 08:49 [id number] 01/04/19 08:50 Document 01/11/19 08:42 DL [id number] 01/11/19 08:43 DL Document 01/25/19 08:30 [id number] 01/25/19 08:35 01/04/19 01/11/19 01/25/19 08:49 08:42 08:30 Wound Center Nurse 2 #2 Sacral -Correct Patient No -Correct Side, Site, Position No -Correct Procedure No -Procedure Performed No -Wound/Ulcer Outcome Healed- Epithelialized #1 Sacral -Correct Patient No No -Correct Side, Site, Position No No -Correct Procedure No No -Procedure Performed No No -Post Debridement Size (cm) - Length 0.1 0 -Post Debridement Size (cm) - Width 0.1 0 -Post Debridement Size (cm) - Depth 0.1 0 -Total Square Cm 0.01 0 -Wound/Ulcer Outcome Not Healed Healed- Epithelialized -Ulcer Cleansing Rinsed/ Irrigated with Saline -Foul Odor after Cleansing No -Bioengineered Tissue No -Bleeding Controlled with Pressure -Offloading No Pain Scale: 0-10 Numeric Is Patient Pain Free? 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 Ulcer perianal and sacral area, healed. 2. Painful recurrent complicated extensive pilonidal cyst with draining sinus with extension to muscular anal sphincter. 3. Former smoker. 4. s/p surgical preparation perianal area and sacral area with excisional debridement infected nonhealing recurrent ulcer (17.5 cm2). Plan: The ulcer was healed on 01/11/19 and states he started to have drainage on 01/13/19. He states he is not having drainage all the time. It will occur intermittently but can be a large amount when it happens. There is a pin hole above the anal area. Unable to express anything out of it at this time. It is too small to probe. It is tender with palpation. We will continue to monitor it closely. Continue dry gauze to the area to absorb any residual moisture in the area and to help minimize friction in the area that can lead to an abrasion since the healed scar needs to strengthen and toughen over the next several weeks. We will refer him to Dr. Schaefer, General Surgeon for another opionion. Discussed with patient that he may need a colon rectum specialist and patient is stating he does not want a colostomy. Code Visit Office Visits / Consults: [id number] OV L3 Est
== END 2019-01-30 23:59 ==
LOC: WC 08:00
PROVIDERS: Family Provider Family Medicine; PCP Family Medicine; Visit Provider Surgery
DX: L05.91 Pilonidal cyst without abscess (principal); Z87.891 Personal history of nicotine dependence; L98.422 Non-pressure chronic ulcer of back with fat layer exposed
CPT/HCPCS: 99212; 99213; G0463

== ENCOUNTER 2020-03-26 15:26 | Emergency (ER) | payer BC, SELFPAY ==
[2020-03-26 15:27] VITALS: BP 193/90; PULSE 75; RESP 16; TEMP 35.9; O2SAT 99; BMI 35.4
[2020-03-26] MEDS: Diphth,Pertuss(Acell),Tet Vac 0.5 ML Vial IM (15:37)
--- NOTE | 2020-03-26 15:56 | ED.DCSUM_ITS ---
History of Present Illness Chief Complaint: Laceration Narrative: Patient presents with left fourth digit laceration working with sharp knife. No other injury. Tetanus is not up-to-date. Past Medical History - Allergies and Home Meds Allergies/Adverse Reactions: Allergies amoxicillin [From Augmentin] Allergy (Severe, Verified 03/26/20 15:45) Hives clavulanic acid [From Augmentin] Allergy (Severe, Verified 03/26/20 15:45) Hives BEE STINGS Allergy (Mild, Uncoded 03/26/20 15:45) ALLERGY Primary Care Physician: Joe Yao MD [Primary Care Provider] - Past Medical History: - - Noncontributory, not anticoagulated Smoking Status: Former smoker Review of Systems Musculoskeletal: Reports: Extremity Pain Skin: Reports: Wounds Neurological: Denies: Weakness, Parasthesia, Numbness Hematologic: Denies: Easy bruising, Easy bleeding Physical Exam Vital Signs/Narrative: Vital Signs Temp Pulse Resp BP Pulse Ox 03/26/20 15:27 96.6 F L 75 16 193/90 H 99 General: Well developed, No Acute Distress Cardiovascular: Regular rate Respiratory: No distress Extremities: - - 3 cm laceration which is a flap laceration over the fourth digit there is no nail involvement although it is right next to the nail. No tendon involvement. Skin: - - Laceration as above Neurological: Normal Strength, Normal Sensation Diagnostic/Tx/Re-eval - Medical Decision Making This is a flap laceration, there is a chance that the flap may not stick secondary to blood flow I explained this to him regardless he needs to follow- up, he is likely to heal well regardless. There is no tendon or nail invo lvement. Tetanus was updated. Procedures - Lacerations No standard instances Depth: Skin Shape: Flap Prep: Michael Number of Sutures/Timothy: 4 Suture Information: Ethilon, 4-0, - Comment: Patient tolerated procedure well. Wound approximated quite well. ED Disposition - Plan for ED Patient: Disposition: Home or Assisted Living Diagnosis: Laceration Instructions: ED Laceration Hand Referrals: Joe Yao MD [Primary Care Provider] - 10 Day for suture removal
== END 2020-03-26 16:26 | disposition home or self-care (01) ==
PROVIDERS: Emergency Provider Emergency Medicine; PCP Family Medicine
DX: S61.219A Laceration without foreign body of unspecified finger without damage to nail, initial encounter (principal); W26.0XXA Contact with knife, initial encounter
CPT/HCPCS: 12002; 90471; 90715; 99282

== ENCOUNTER 2021-08-22 13:15 | Outpatient (CLI) | payer MEDICARE, SELFPAY ==
--- NOTE | 2021-08-22 16:02 | NEURO ---
NCS and/or EMG Patient Report Ordering Doctor: George Miller DATE OF SERVICE: 08/22/21 Chinedu presents for electrodiagnostic testing of the upper limbs. He reports weakness, numbness and tingling in both hands, for approximately 6 months. He had carpal tunnel repair approximately 35 years ago. Electrodiagnostic findings: Median motor nerve demonstrates prolonged distal latency bilaterally with normal amplitude and reduced conduction velocity on the left side. Normal ulnar motor response bilaterally. Prolonged median and ulnar F waves. Prolonged median sensory latency at the wrist bilaterally. Absent right median palmar response. Prolonged left median palmar latency. Normal ulnar and radial sensory responses. On needle EMG, all muscles tested in the upper limbs show no evidence of denervation with normal motor unit action potentials. Electrodiagnostic impression: This is an abnormal study in the upper limbs 1. Electrodiagnostic findings are suggestive of bilateral median mononeuropathy. This is consistent with a moderate bilateral carpal tunnel syndrome. 2. No electrodiagnostic evidence is noted for cervical radiculopathy.
== END 2021-08-22 23:59 | disposition home or self-care (01) ==
PROVIDERS: PCP Physician Assistant; Referring Provider Orthopaedic Surgery; Visit Provider Orthopaedic Surgery
DX: R20.2 Paresthesia of skin (principal); M46.1 Sacroiliitis, not elsewhere classified
CPT/HCPCS: 95886; 95912

== ENCOUNTER → 2021-10-19 | Outpatient (CLI) | payer MEDICARE, SELFPAY ==
[2021-10-19 10:39] LABS: Hemoglobin A1c 6.6 % (3.8-5.6)
== END | disposition home or self-care (01) ==
LOC: LAB 09:41
PROVIDERS: PCP Physician Assistant; Visit Provider Student in an Organized Health Care Education/Training Program
DX: E11.69 Type 2 diabetes mellitus with other specified complication (principal)
CPT/HCPCS: 36415; 83036

== ENCOUNTER → 2022-02-25 | Outpatient (CLI) | payer MEDICARE, SELFPAY ==
--- NOTE | 2022-02-25 13:59 | VDLE_ITS ---
Reason For Study: Pain RIGHT GSV is normal. CFV is compressible, spontaneous, phasic, competent and demonstrates normal augmentation. FV is compressible, spontaneous, phasic, competent and demonstrates normal augmentation. POP V is compressible, spontaneous, phasic, competent and demonstrates normal augmentation. T/P Trunk is compressible. PTV is compressible. RT PerV is compressible. Procedure This is a venous duplex using B-mode, color flow and spectral Doppler. Exam performed in department. A preliminary report was called and/or faxed to [facility]. VL/Venous Duplex US, Unilateral Interpretation Summary There is no evidence of right lower extremity deep vein thrombosis. Right great saphenous vein appears patent and compressible segmentally. Ordering Physician: Rian Cevallos Referring Physician: Leon Toscano Performed By: Snow Sepulveda RVT
== END | disposition home or self-care (01) ==
LOC: CVS 13:55
PROVIDERS: PCP Physician Assistant; Referring Provider Physician Assistant Surgical; Visit Provider Physician Assistant Surgical
DX: M79.661 Pain in right lower leg (principal)
CPT/HCPCS: 93971

== ENCOUNTER → 2022-03-15 | Outpatient (CLI) | payer MEDICARE, SELFPAY ==
[2022-03-15 11:27] LABS: Absolute Lymphocyte Count 1.15 X10^3/uL (0.83-4.51); Absolute Neutrophil Count 4.8 X10^3/uL (2.0-7.7); Basophil# 0.04 X10^3/uL; Basophil% 0.6 % (0-1); Eosinophil# 0.15 X10^3/uL; Eosinophils% 2.3 % (0-5); Hematocrit 39.3 % (40-54); Hemoglobin 12.6 g/dL (13.0-16.5); Lymphocyte # 1.15 X10^3/ul (0.83-4.51); Lymphocyte % 17.3 % (19-41); Mean Corp Hgb Conc 32.1 g/dL (32-36); Mean Corpuscular Hgb 29.6 pg (27.0-32.0); Mean Corpuscular Volume 92.5 fL (80-94); Mean Platelet Vol. 9.5 fl (6.2-12.0); Monocyte# 0.51 X10^3/uL; Monocyte% 7.7 % (0-10); NRBC Flagged by Analyzer 0 % (0-5); Neutrophil # 4.77 X10^3/uL (2.7-7.7); Neutrophil % 71.9 % (47-70); Platelet Count 252 K/mm3 (150-450); RBC Distribution Width CV 13.5 % (11.6-14.6); RBC Distribution Width SD 45.8 fl (35.1-43.9); Red Blood Count 4.25 M/mm3 (4.6-6.2); White Blood Count 6.6 K/mm3 (4.4-11.0)
[2022-03-15 11:48] LABS: Hemoglobin A1c 6.6 % (3.8-5.6)
[2022-03-15 12:09] LABS: Anion Gap 7 (5-15); BUN 20 mg/dL (7-18); BUN/Creat Ratio 22.8 RATIO (10-20); Calcium,Total 9.5 mg/dL (8.5-10.1); Chloride 105 mmol/L (98-107); Creatinine, Serum 0.88 mg/dL (0.70-1.30); EST Glomerular Filtration Rate 92 mL/min (>60); Est Glom Filt Rate - Afr Amer 111 mL/min (>60); Glucose 140 mg/dL (74-106); Potassium 3.9 mmol/L (3.5-5.1); Sodium Level 140 mmol/L (136-145)
== END | disposition home or self-care (01) ==
LOC: LAB 10:43
PROVIDERS: PCP Physician Assistant; Referring Provider Physician Assistant Surgical; Visit Provider Physician Assistant Surgical
DX: Z01.818 Encounter for other preprocedural examination (principal); E11.9 Type 2 diabetes mellitus without complications
CPT/HCPCS: 36415; 80048; 83036; 85025

== ENCOUNTER → 2025-01-17 | Outpatient (CLI) | payer MEDICARE, SELFPAY ==
--- NOTE | 2025-01-17 08:00 | RAD_ITS ---
EXAM: Single and double contrast esophagram CLINICAL HISTORY: Dysphagia COMPARISON: None. TECHNIQUE: Single and double contrast esophagram FINDINGS: Visually, no abnormality of the swallowing mechanism was seen. The esophagus demonstrates no area of persistent narrowing. No mucosal changes are seen. Recurrent gastroesophageal reflux to at least the level of the mid esophagus was noted. Easy passage of a 13 mm barium tablet into the stomach was seen. Limited imaging of the stomach and duodenum demonstrates no abnormality. RAD/Esophagus Dual Contrast IMPRESSION: Gastroesophageal reflux. Reading Location: [place] [id number]
== END | disposition home or self-care (01) ==
LOC: RAD 07:39
PROVIDERS: PCP Family Medicine; Referring Provider Otolaryngology Otolaryngology/Facial Plastic Surgery; Visit Provider Otolaryngology Otolaryngology/Facial Plastic Surgery
DX: R13.10 Dysphagia, unspecified (principal)
CPT/HCPCS: 74221